=== PATIENT | female | born 1955 | race Caucasian/White ===

== ENCOUNTER → 2017-10-14 13:55 | Outpatient (CLI) | payer MEDICARE, OTHER, SELFPAY ==
[2017-10-14 15:38] LABS: BUP Internal Control LINE = VALID (VALID); Buprenorphine Drug Screen Negative (<10 ng/mL)
[2017-10-15 11:19] LABS: Amphetamine Urine VISTA NEGATIVE (<1000 ng/mL); Barbiturate Urine VISTA NEGATIVE (< 200 ng/mL); Benzodiazepine Urine VISTA NEGATIVE (< 200 ng/mL); Cocaine Urine VISTA NEGATIVE (< 300 ng/mL); Ecstacy Urine VISTA NEGATIVE (< 500 ng/mL); Methadone Urine VISTA NEGATIVE (< 300 ng/mL); PCP Urine VISTA NEGATIVE (< 25 ng/mL); THC Urine VISTA POSITIVE (< 50 ng/mL); Vista UDS pH Range 6
== END ==
PROVIDERS: Family Provider Family Medicine; PCP Family Medicine; Visit Provider Family Medicine
DX: F11.20 Opioid dependence, uncomplicated (principal)
CPT/HCPCS: 80307

== ENCOUNTER → 2018-06-04 16:04 | Outpatient (CLI) | payer MEDICARE, MEDICAID, SELFPAY ==
[2017-12-29 09:44] VITALS: BMI 39.0
== END ==
PROVIDERS: Family Provider Family Medicine; PCP Family Medicine; Referring Provider Otolaryngology; Visit Provider Otolaryngology
DX: J34.0 Abscess, furuncle and carbuncle of nose (principal)
CPT/HCPCS: 87070; 87077; 87186; 87205

== ENCOUNTER 2019-05-25 10:30 | Emergency (ER) | payer MEDICARE, OTHER, SELFPAY ==
[2019-05-17 09:52] VITALS: BMI 41.6
[2019-05-25 10:31] VITALS: BP 158/88; PULSE 82; RESP 18; TEMP 36.6; O2SAT 96; BMI 41.3
--- NOTE | 2019-05-25 11:03 | EKG12_ITS ---
Test Reason : SOB Blood Pressure : / mmHG Vent. Rate : 067 BPM Atrial Rate : 067 BPM P-R Int : 152 ms QRS Dur : 092 ms QT Int : 398 ms P-R-T Axes : 057 000 032 degrees QTc Int : 420 ms Normal sinus rhythm Moderate voltage criteria for LVH, may be normal variant Borderline ECG Confirmed by JOANNA GARCIA, ROGERS ([id number]), subeditor VANNESA DARBY ([id number]) on 05/30/2019 10:33:18 AM Referred By: [facility] Confirmed By:LILIYA MARSHALL MD
--- NOTE | 2019-05-25 11:03 | RAD_ITS ---
STUDY: X-RAY CHEST REASON FOR EXAM: Female, 63 years old. PT WITH EXTREME FATIGUE AND WEAKNESS SINCE THURSDAY, CHEST PAIN TECHNIQUE: PA and lateral views of the chest. COMPARISON: None. FINDINGS: EKG electrodes are seen. Hyperinflation. Minimal increased linear markings at the left lung base suggestive of linear atelectasis. There is no demonstrated pleural abnormality. Normal size heart. Normal mediastinum and damien. Normal visualized pulmonary arteries. Normal visualized aortic arch and descending thoracic aorta. There are diffuse degenerative changes of the visualized thoracic spine. Normal visualized ribs, clavicles, and shoulders. There is no demonstrated abnormality of the visualized soft tissue structures of the upper abdomen. RAD/Chest PA and Lateral IMPRESSION: Hyperinflation. Findings suggestive of mild linear atelectasis at the left lung base. Electronically Signed: Tommie Nixon, at 12:20 EST , Service support ,
--- NOTE | 2019-05-25 11:04 | ED.DCSUM_ITS ---
History of Present Illness Chief Complaint: Fatigue Informant: Patient Narrative: Patient states that on Thursday she had a vertigo-like sensation. She took Dramamine and it resolved. On Thursday she felt globally fatigued. She states that when she tries to walk any distance she begins to sweat in her posterior hairline. She does not sweat anywhere else. She notes a left chest discomfort which she describes as a deep hurt. She feels fatigued. She denies any nausea vomiting or diarrhea. No URI symptoms. She reports that since Thursday she has been sleeping more. She denies any fevers. She denies any generalized myalgias. Past Medical History - Allergies and Home Meds Allergies/Adverse Reactions: Allergies No Known Allergies Allergy (Verified 05/25/19 10:33) Primary Care Physician: John Adams DO [Primary Care Provider] - Smoking Status: Never smoker Review of Systems General: Reports: Malaise. Denies: Chills, Fever, Sweats Eyes: Denies: Visual changes - bilaterally, Diplopia ENT: Denies: Rhinorrhea, Sore throat Cardiovascular: Reports: Chest pain. Denies: Palpitations Respiratory: Denies: Dyspnea, Cough, Dyspnea on exertion Gastrointestinal: Denies: Abdominal pain, Nausea, Vomiting, Diarrhea, Melena, Hematochezia Genitourinary: Reports: Frequency. Denies: Dysuria, Hematuria Musculoskeletal: Denies: Back pain, Extremity Pain Skin: Denies: Rash, Wounds Neurological: Denies: Headache, Weakness, Numbness Physical Exam Vital Signs/Narrative: Vital Signs Temp Pulse Resp BP Pulse Ox 05/25/19 10:31 98 F 82 18 158/88 H 96 Inital Vital Signs reviewed: Yes General: Well nourished, Well developed, Obese, No Acute Distress Head: Normocephalic, Atraumatic Eyes: Perrl, EOMI ENT: Moist mucous membranes, No rhinorrhea Neck: Supple, Nontender Cardiovascular: Regular rate, Regular rhythm, No murmurs Respiratory: No distress, CTA bilaterally, Chest nontender Abdomen: Soft, Nontender, Nondistended, Normal bowel sounds Back: Nontender, Normal Inspection Extremities: Nontender, No edema Skin: Normal color, No rash Neurological: Alert, Oriented x3, Cranial nerves II-XII grossly intact, Normal Strength, Normal Sensation Psychological: Normal affect, Normal Mood Diagnostic/Tx/Re-eval - Medical Decision Making EKG showed a sinus rhythm rate of 67 without ectopy. Basic labs including TSH troponin were negative. Urinalysis normal. Chest x-ray normal. D-dimer was elevated. Therefore CTA of the chest was ordered and this was negative for acute. At this point I do not see an obvious cause for the patient malaise and fatigue. Our plan will be outpatient follow-up return if worsening. The patien t is comfortable with this plan. ED Disposition - Plan for ED Patient: Disposition: Home or Assisted Living Diagnosis: Fatigue, Chest pain Instructions: WEAKNESS, Unk Cause Referrals: John Adams DO [Primary Care Provider] - 2 Days
[2019-05-25 11:40] VITALS: PULSE 72; RESP 16; O2SAT 98
[2019-05-25] MEDS: 0.9% Normal Saline 1,000 ML 1000 ML IV (11:46)
[2019-05-25 12:04] LABS: Mucous, Urine 0 SEEN /hpf (<or=2+)
[2019-05-25 12:05] LABS: Color, Urine Yellow (Yellow); Glucose, Dipstick Normal (Normal); Ketone-Dipstick 5 mg/dl (Negative); Leukocyte Esterase-Dipstick Negative /ul (Negative); Nitrite-Dipstick Negative (Negative); Occult Blood-Urine 50 /ul (Negative); Protein-Dipstick Negative (Negative); Urine Bilirubin Dipstick Negative (Negative); Urine Clarity Sl. Cloudy (Clear); Urine Urobilinogen Normal (Normal)
[2019-05-25 12:09] LABS: Absolute Lymphocyte Count 2.38 X10^3/uL (0.83-4.51); Absolute Neutrophil Count 7.4 X10^3/uL (2.0-7.7); Basophil# 0.08 X10^3/uL; Basophil% 0.7 % (0-1); Eosinophil# 0.12 X10^3/uL; Eosinophils% 1.1 % (0-5); Hematocrit 43.7 % (37-47); Hemoglobin 13.7 g/dL (12.0-15.0); Lymphocyte # 2.38 X10^3/ul (4.0); Lymphocyte % 21.7 % (19-41); Mean Corp Hgb Conc 31.4 g/dL (32-36); Mean Corpuscular Hgb 28.7 pg (27.0-32.0); Mean Corpuscular Volume 91.6 fL (81-99); Monocyte# 0.84 X10^3/uL; Monocyte% 7.7 % (0-10); NRBC Flagged by Analyzer 0 % (0-5); Neutrophil # 7.39 X10^3/uL (2.7-7.7); Neutrophil % 67.3 % (47-70); Platelet Count 219 K/mm3 (150-450); RBC Distribution Width CV 14.2 % (11.6-14.6); RBC Distribution Width SD 47.9 fl (35.1-43.9); Red Blood Count 4.77 M/mm3 (4.2-5.4)
[2019-05-25 12:12] LABS: Bacteria RARE /hpf (None Seen); Red Blood Cells-Urine 0-5 SEEN /hpf (0-5); Squamous Epithelial Cells - UA 0-5 SEEN /hpf (5-10); White Blood Cells 0-5 SEEN /hpf (0-5)
[2019-05-25 12:21] LABS: ALB/GLOB Ratio 0.8 RATIO (0.9-2.4); AST(SGOT) 18 U/L (15-37); Alanine Aminotransfer ALT/SGPT 28 U/L (13-56); Albumin, Serum 3.6 g/dL (3.2-5.0); Alkaline Phosphatase 131 U/L (45-117); Anion Gap 5 (5-15); BUN 15 mg/dL (7-18); BUN/Creat Ratio 22.9 RATIO (10-20); Calcium,Total 9.3 mg/dL (8.5-10.1); Chloride 109 mmol/L (98-107); Creatinine, Serum 0.66 mg/dL (0.55-1.02); EST Glomerular Filtration Rate 96 mL/min (>60); Est Glom Filt Rate - Afr Amer 117 mL/min (>60); Estimated Creatinine Clearance 80.61 ml/min; Globulin 4.3 g/dL (2.2-4.2); Glucose 109 mg/dL (74-106); Potassium 3.4 mmol/L (3.5-5.1); Protein, Total 7.9 g/dL (6.4-8.2); Sodium Level 140 mmol/L (136-145); Thyroid Stim Hormone (TSH) 1.02 uIU/mL (0.358-3.74)
[2019-05-25 13:24] VITALS: PULSE 81; RESP 19; O2SAT 95; O2SAT 97
--- NOTE | 2019-05-25 13:25 | ED.RN ---
pt walked with pulse ox, pt reports becoming very tired on ambulation. spo2 started at 97% with a heart rate of 86. during the test walk pt's spo2 dropped to 95 percent with respirations in the mid to high 20's and heart rate of 128
[2019-05-25 14:11] LABS: D-Dimer Quantitative (DVT/PE) 1.43 FEU/ug/m (0.27-0.49)
--- NOTE | 2019-05-25 14:12 | CT_ITS ---
STUDY: CTA CHEST REASON FOR EXAM: Female, 63 years old. LEFT CHEST PAIN RADIATION DOSAGE (If Supplied By Facility): CTDIvol = ( 12.66 ) mGy, DLP = ( 521.55 ) mGycm TECHNIQUE: The examination was performed with the intravenous administration of 100 ML ISOVUE 370. Post-processing of the angiographic images was performed, with multiplanar reformation and 3D reconstruction. Individualized dose optimization techniques were used for this CT. COMPARISON: Comparison is made with prior chest radiograph done earlier in the day. FINDINGS: Elevation of the right hemidiaphragm. Normal enhancement of the main pulmonary artery and right and left pulmonary arteries. Normal enhancement of the bilateral peripheral pulmonary arteries. There is no demonstrated pulmonary embolism. Normal thoracic aorta and visualized great vessels. There is no demonstrated aortic dissection. There are calcifications of the coronary arteries. Normal mediastinum. Normal hilar regions. Normal visualized trachea and bronchi. The lungs are well expanded. Findings suggestive of focal scarring in the anterior aspect of the lingular segment of the left upper lobe as well as the anterior aspect of the Normal pleura. Normal chest wall structures. There are degenerative changes of thoracic spine. Normal visualized upper abdomen. CT/CTA Chest W/WO Contrast IMPRESSION: Normal CTA chest examination, without a demonstrated pulmonary embolism or arterial dissection. Electronically Signed: Tommie Nixon, at 14:53 EST , Service support ,
[2019-05-25] MEDS: 0.9% Normal Saline 1,000 ML 999 ML IV (14:47)
[2019-05-25 16:02] VITALS: PULSE 82; RESP 14; O2SAT 95
== END 2019-05-25 16:09 | disposition home or self-care (01) ==
PROVIDERS: Emergency Provider Emergency Medicine; PCP Family Medicine
DX: R07.9 Chest pain, unspecified (principal); R53.83 Other fatigue; E66.9 Obesity, unspecified
CPT/HCPCS: 71046; 71275; 80053; 81001; 84443; 84484; 85025; 85379; 87804; 93005; 96360; 96361; 99284; J7030; Q9967; A4216

== ENCOUNTER → 2019-05-30 | Outpatient (CLI) | payer MEDICARE, OTHER, SELFPAY ==
[2019-05-30 10:36] VITALS: BMI 41.9
--- NOTE | 2019-05-30 10:54 | RAD_ITS ---
STUDY: X-RAY - PELVIS AND LEFT HIP REASON FOR EXAM: Lower back and left hip pain, no specific injury. TECHNIQUE: 2 views of the pelvis and hip. COMPARISON: None. FINDINGS: Normal visualized soft tissue structures. Normal bilateral iliac wings, sacroiliac joints and visualized sacrum. Normal bilateral superior and inferior pubic rami. Normal pubic symphysis. Normal bilateral ischial tuberosities. Normal visualized femoral head. Normal acetabulum. There is mild joint space narrowing of the superomedial left hip joint. RAD/HIP, UNI W/ Pelvis 2-3 Views IMPRESSION: Mild arthrosis of the left hip. Electronically Signed: Juma Valdez MD at 13:58 EST Tel , Service support ,
--- NOTE | 2019-05-30 10:54 | RAD_ITS ---
HISTORY: Low back pain. Left hip pain. 5 views of the lumbar spine. Findings: Levoscoliosis of the thoracolumbar junction. Dextroscoliosis of the lumbar spine apex at the L3-L4 interspace. Degenerative disc disease at every level. Degenerative disc disease manifested by loss of disc height, endplate sclerosis, and enthesophytes. Anterior subluxation of L4 on L5 by 10 mm. Facet arthropathy at every level. Between flexion and extension lateral imaging, the anterior subluxation of L4 on L5 remain stable. No evoke listhesis perceived. RAD/L/S Spine w Bend Min 6 Vw IMPRESSION: Multilevel degenerative disc disease. Anterior subluxation of L4 on L5 by 10 mm. Due to loss of disc height, endplate sclerosis, and hyperostotic enthesophytes the degenerative disc disease is greatest at the T12-L1 level. at 0606 Reported and signed by: Tone Fair MD Electronically Signed: Tone Fair MD at 6:05 EST Tel , Service support ,
--- NOTE | 2019-05-30 11:45 | RAD_ITS ---
STUDY: X-RAY - RIGHT KNEE REASON FOR EXAM: Bilateral knee pain. TECHNIQUE: 4 view(s) of the knee. COMPARISON: None. FINDINGS: Normal visualized distal femur. Normal visualized proximal tibia and fibula. Normal proximal tibiofibular articulation. There are marginal osteophytes and severe joint space narrowing of the medial femorotibial compartment. Normal lateral femorotibial compartment. There are marginal osteophytes and severe joint space narrowing of the patellofemoral articulation. There is a possible posterior intra-articular body. RAD/Knee 4 or More Views IMPRESSION: Arthrosis of the medial femorotibial and patellofemoral compartments. Possible posterior intra-articular body. Electronically Signed: Juma Valdez MD at 14:10 EST Tel , Service support ,
--- NOTE | 2019-05-30 11:45 | RAD_ITS ---
STUDY: X-RAY - LEFT KNEE REASON FOR EXAM: Bilateral knee pain. TECHNIQUE: 4 view(s) of the knee. COMPARISON: None. FINDINGS: Normal visualized distal femur. Normal visualized proximal tibia and fibula. Normal proximal tibiofibular articulation. There is severe joint space narrowing of the medial femorotibial compartment. There are marginal osteophytes without joint space narrowing of the lateral femorotibial compartment. There are marginal osteophytes and severe joint space narrowing of the patellofemoral articulation. There is a joint effusion with an intra-articular body in the suprapatellar recess. RAD/Knee 4 or More Views IMPRESSION: Arthrosis of the medial femorotibial and patellofemoral compartments. Joint effusion. Intra-articular body. Electronically Signed: Juma Valdez MD at 14:30 EST Tel , Service support ,
== END | disposition home or self-care (01) ==
LOC: HPRAD 10:54
PROVIDERS: PCP Family Medicine; Referring Provider Physician Assistant; Visit Provider Physician Assistant
DX: M70.62 Trochanteric bursitis, left hip (principal); M25.561 Pain in right knee; M25.562 Pain in left knee; G89.29 Other chronic pain; M79.652 Pain in left thigh
CPT/HCPCS: 72114; 73502; 73564

== ENCOUNTER 2019-11-14 10:56 | Emergency (ER) | payer MEDICARE, OTHER, SELFPAY ==
[2019-10-04 12:45] VITALS: BMI 41.3
[2019-11-14 10:58] VITALS: BP 159/77; PULSE 101; RESP 18; TEMP 36.7; O2SAT 97; BMI 40.3
--- NOTE | 2019-11-14 11:08 | EKG12_ITS ---
Test Reason : CP Blood Pressure : / mmHG Vent. Rate : 082 BPM Atrial Rate : 082 BPM P-R Int : 154 ms QRS Dur : 086 ms QT Int : 370 ms P-R-T Axes : 055 -02 025 degrees QTc Int : 432 ms Sinus rhythm with occasional Premature ventricular complexes Voltage criteria for left ventricular hypertrophy Abnormal ECG Confirmed by SARANYA GARCIA, COLLETTE ([id number]), commercial production editor VANNESA DARBY ([id number]) on 11/16/2019 12:31:53 PM Referred By: ABELARDO Confirmed By:COLLETTE BEAVER MD
--- NOTE | 2019-11-14 11:09 | CT_ITS ---
STUDY: CT CERVICAL SPINE WITHOUT CONTRAST REASON FOR EXAM: Female, 64 years old. LT SHOULDER PAIN INTO ARM/NKI. Nausea and vomiting x 2 days .Hx of rheumatoid arthritis RADIATION DOSAGE (If Supplied By Facility): CTDIvol = ( 29.87 ) mGy, DLP = ( 602.24 ) mGycm TECHNIQUE: High resolution transaxial imaging was performed without contrast material. Sagittal and coronal images were reconstructed. Individualized dose optimization techniques were used for this CT. COMPARISON: None FINDINGS: Normal craniovertebral junction. There are degenerative changes of the anterior atlantoaxial articulation. Normal odontoid process. There is straightening of the normal cervical lordosis. Normal vertebral bodies and posterior osseous elements. C2-3: Facet joint osteoarthritis and hypertrophy worse on the right side. Uncovertebral arthrosis. Moderate degree of bilateral neural foraminal stenosis worse on the right side. C3-4: Minimal anterior listhesis of C3 on C4. Bilateral facet joint osteoarthritis worse on the right side. Minimal bilateral neural foraminal stenosis. C4-5: Moderate degree of disc space narrowing with spondylosis and disc degeneration. Uncovertebral arthrosis. Moderate degree of bilateral neural foraminal stenosis. C5-6: Marked degree of disc space narrowing and disc degeneration. Spondylosis. Uncovertebral arthrosis. Bilateral neural foraminal stenosis. C6-7: Marked degree of disc space narrowing. Spondylosis. Uncovertebral arthrosis. Bilateral neural foraminal stenosis. C7-T1: Normal endplates. Normal disc height and morphology. Normal central canal and intervertebral neuroforamina. Normal visualized soft tissue structures. CT/Spine Cervical without Contras IMPRESSION: Multilevel degenerative changes, as described above. Electronically Signed: Tommie Nixon, at 12:28 EDT , Service support ,
--- NOTE | 2019-11-14 11:13 | ED.DCSUM_ITS ---
History of Present Illness Chief Complaint: Upper Extremity Injury Informant: Patient Onset: Days Context: Gradual Onset Timing: Continuous Current Severity: Moderate Maximum Severity: Moderate Narrative: The patient is a 64-year-old female with history of rheumatoid arthritis and prior back surgery that presents to the emergency department with atraumatic right shoulder and chest pain. The patient states that she has been having pain in her right shoulder that radiates down her right arm. She states that she is had tingling. She denies any weakness. She cannot recall any trauma. She thought that she may have just slept wrong, so she waited 2 days. She states that today, she is still having the pain. She denies shortness of breath. She is had no fever or chills. She is otherwise been in her normal state of health. Prior similar symptoms: No Recent Illness/Hospitalization: No Past Medical History - Allergies and Home Meds Allergies/Adverse Reactions: Allergies No Known Allergies Allergy (Verified 11/14/19 10:57) Primary Care Physician: John Adams DO [Primary Care Provider] - Prior records reviewed: Yes Past Medical History: - - Hypertension, obesity, rheumatoid arthritis Surgical History: noncontributory Smoking Status: Never smoker Review of Systems General: Denies: Chills, Fever, Sweats Eyes: Denies: Visual changes - bilaterally, Diplopia ENT: Denies: Rhinorrhea, Sore throat Cardiovascular: Reports: Chest pain. Denies: Palpitations Respiratory: Denies: Dyspnea, Cough, Dyspnea on exertion Gastrointestinal: Denies: Abdominal pain, Nausea, Vomiting, Diarrhea, Melena, Hematochezia Genitourinary: Denies: Dysuria, Hematuria, Frequency Musculoskeletal: Reports: Myalgias, Arthralgias, Neck pain. Denies: Back pain, Extremity Pain Skin: Denies: Rash, Wounds Neurological: Denies: Headache, Weakness, Numbness Physical Exam Vital Signs/Narrative: Vital Signs Temp Pulse Resp BP Pulse Ox 11/14/19 10:58 98.0 F 101 H 18 159/77 H 97 Inital Vital Signs reviewed: Yes General: Well nourished, Well developed, No Acute Distress Head: Normocephalic, Atraumatic Eyes: Perrl, EOMI ENT: Moist mucous membranes, No rhinorrhea Neck: Supple, Nontender Cardiovascular: Regular rate, Regular rhythm, No murmurs Respiratory: No distress, CTA bilaterally, Chest nontender Abdomen: Soft, Nontender, Nondistended, Normal bowel sounds Back: Nontender, Normal Inspection Extremities: Nontender, No edema Skin: Normal color, No rash Neurological: Alert, Oriented x3, Cranial nerves II-XII grossly intact, Normal Strength, Normal Sensation Psychological: Normal affect, Normal Mood Diagnostic/Tx/Re-eval Clinical Impression(s) from Imaging Studies Cervical Spine CT 11/14/19 11:09 IMPRESSION: Multilevel degenerative changes, as described above. Electronically Signed: Tommie Tiffani, at 12:28 EDT , Service support , Chest X-Ray 11/14/19 11:50 IMPRESSION: Hyperinflation. The lungs are clear Electronically Signed: Tommie Tiffani, at 12:31 EDT , Service support , Abnormal Lab Results 11/14/19 11/14/19 11:35 11:35 WBC 12.1 H RBC 4.22 Hgb 12.6 Hct 40.7 MCV 96.4 MCH 29.9 MCHC 31.0 L RDW Std Deviation 49.4 H RDW Coeff of [facility] 14.0 Plt Count 199 MPV 13.8 H Immature Gran % (Auto) 0.600 Neut % (Auto) 75.9 H Lymph % (Auto) 15.6 L [place] % (Auto) 6.2 Eos % (Auto) 1.2 Baso % (Auto) 0.5 Absolute Neuts (auto) 9.2 H Absolute Lymphs (auto) 1.88 Nucleated RBC % 0 Sodium 144 Potassium 3.5 Chloride 112 H Carbon Dioxide 26.0 Anion Gap 6 BUN 16 Creatinine 0.54 L Estim Creat Clear Calc 97.23 Est GFR (MDRD) Af Amer 144 Est GFR (MDRD) Non-Af 119 BUN/Creatinine Ratio 29.4 H Glucose 107 H Calcium 9.1 Troponin I < 0.015 - Medical Decision Making The patient symptoms do seem more consistent with a cervical radiculopathy. She has no weakness. She has normal reflexes. I did obtain CT cervical spine, chest x-ray, and modified cardiac work-up given the posterior pain. CT demonstrates rather significant chronic change without acute fracture or displacement. Cardiac work-up was unremarkable. At this point, I do feel the patient would benefit from a short Solu-Medrol burst. She is comfortable with this plan of care. She was counseled on concerning symptoms and reasons to return. She will be discharged home. Impression 1. Cervical radiculopathy ED Disposition - Plan for ED Patient: Disposition: Home or Assisted Living Instructions: ED CERVICAL RADICULOPATHY Prescriptions: MethylPREDNISolone DosePak [Medrol DosePak] 4 mg PO UD #1 box Prescription Printed Referrals: John Adams DO [Primary Care Provider] -
--- NOTE | 2019-11-14 11:50 | RAD_ITS ---
STUDY: X-RAY CHEST REASON FOR EXAM: Female, 64 years old. Right sided chest pain TECHNIQUE: PA and lateral views of the chest. COMPARISON: Comparison is made with prior study dated 05-25-19. FINDINGS: EKG electrodes are seen. Hyperinflation. The lungs are clear. There is no demonstrated pleural abnormality. Normal size heart. Normal mediastinum and damien. Normal visualized pulmonary arteries. Normal visualized aortic arch and descending thoracic aorta. There are diffuse degenerative changes of the visualized thoracic spine. Normal visualized ribs, clavicles, and shoulders. There is no demonstrated abnormality of the visualized soft tissue structures of the upper abdomen. RAD/Chest PA and Lateral IMPRESSION: Hyperinflation. The lungs are clear Electronically Signed: Tommie Nixon, at 12:31 EDT , Service support ,
[2019-11-14 11:53] LABS: Absolute Lymphocyte Count 1.88 X10^3/uL (0.83-4.51); Absolute Neutrophil Count 9.2 X10^3/uL (2.0-7.7); Basophil# 0.06 X10^3/uL; Basophil% 0.5 % (0-1); Eosinophil# 0.14 X10^3/uL; Eosinophils% 1.2 % (0-5); Hematocrit 40.7 % (37-47); Hemoglobin 12.6 g/dL (12.0-15.0); Lymphocyte # 1.88 X10^3/ul (4.0); Lymphocyte % 15.6 % (19-41); Mean Corpuscular Hgb 29.9 pg (27.0-32.0); Mean Corpuscular Volume 96.4 fL (81-99); Mean Platelet Vol. 13.8 fl (6.2-12.0); Monocyte# 0.75 X10^3/uL; Monocyte% 6.2 % (0-10); NRBC Flagged by Analyzer 0 % (0-5); Neutrophil # 9.17 X10^3/uL (2.7-7.7); Neutrophil % 75.9 % (47-70); Platelet Count 199 K/mm3 (150-450); RBC Distribution Width SD 49.4 fl (35.1-43.9); Red Blood Count 4.22 M/mm3 (4.2-5.4); White Blood Count 12.1 K/mm3 (4.4-11.0)
[2019-11-14 12:15] LABS: Anion Gap 6 (5-15); BUN 16 mg/dL (7-18); BUN/Creat Ratio 29.4 RATIO (10-20); Calcium,Total 9.1 mg/dL (8.5-10.1); Chloride 112 mmol/L (98-107); Creatinine, Serum 0.54 mg/dL (0.55-1.02); EST Glomerular Filtration Rate 119 mL/min (>60); Est Glom Filt Rate - Afr Amer 144 mL/min (>60); Estimated Creatinine Clearance 97.23 ml/min; Glucose 107 mg/dL (74-106); Potassium 3.5 mmol/L (3.5-5.1); Sodium Level 144 mmol/L (136-145)
[2019-11-14 12:48] VITALS: BP 149/75; PULSE 87; RESP 18
== END 2019-11-14 12:50 | disposition home or self-care (01) ==
LOC: ED 12:08
PROVIDERS: Emergency Provider Emergency Medicine; PCP Family Medicine
DX: M54.12 Radiculopathy, cervical region (principal); M06.9 Rheumatoid arthritis, unspecified; E66.9 Obesity, unspecified; I10 Essential (primary) hypertension
CPT/HCPCS: 71046; 72125; 80048; 84484; 85025; 93005; 96360; 99285; J7030

== ENCOUNTER → 2022-03-26 | Outpatient (CLI) | payer MEDICARE, OTHER, SELFPAY ==
--- NOTE | 2022-03-26 09:47 | RAD_ITS ---
STUDY: X-RAY CHEST REASON FOR EXAM: Female, 66 years old. Shortness of breath. TECHNIQUE: Frontal and lateral views of the chest. COMPARISON: November 14, 2019. FINDINGS: The lungs are clear and expanded. There is no demonstrated pleural abnormality. Normal size heart. Normal mediastinum and damien. Normal visualized pulmonary arteries. Normal visualized aortic arch and descending thoracic aorta. Stable diffuse moderate thoracic spondylosis. Normal visualized ribs, clavicles, and shoulders. There is no demonstrated abnormality of the visualized soft tissue structures of the upper abdomen. RAD/Chest PA and Lateral IMPRESSION: Stable spondylosis. No active or acute cardiopulmonary disease. Electronically Signed: Lc Mccabe, at 11:21 EST ,
[2022-03-26 12:10] LABS: Absolute Lymphocyte Count 2.09 X10^3/uL (0.83-4.51); Absolute Neutrophil Count 7.6 X10^3/uL (2.0-7.7); Basophil# 0.07 X10^3/uL; Basophil% 0.6 % (0-1); Eosinophil# 0.25 X10^3/uL; Eosinophils% 2.3 % (0-5); Hematocrit 45.4 % (37-47); Hemoglobin 14.1 g/dL (12.0-15.0); Lymphocyte # 2.09 X10^3/ul (0.83-4.51); Lymphocyte % 19.3 % (19-41); Mean Corp Hgb Conc 31.1 g/dL (32-36); Mean Corpuscular Hgb 29.4 pg (27.0-32.0); Mean Corpuscular Volume 94.6 fL (81-99); Mean Platelet Vol. 15.5 fl (6.2-12.0); Monocyte# 0.77 X10^3/uL; Monocyte% 7.1 % (0-10); NRBC Flagged by Analyzer 0 % (0-5); Neutrophil # 7.59 X10^3/uL (2.7-7.7); Neutrophil % 70.1 % (47-70); Platelet Count 169 K/mm3 (150-450); RBC Distribution Width SD 52.6 fl (35.1-43.9); White Blood Count 10.8 K/mm3 (4.4-11.0)
[2022-03-26 12:36] LABS: BNP,B-Type NATRIURETIC PEPTIDE 7.6 pg/mL (0-100)
[2022-03-26 12:45] LABS: Anion Gap 4 (5-15); BUN 9 mg/dL (7-18); BUN/Creat Ratio 14.9 RATIO (10-20); Calcium,Total 9.7 mg/dL (8.5-10.1); Chloride 111 mmol/L (98-107); EST Glomerular Filtration Rate 105 mL/min (>60); Est Glom Filt Rate - Afr Amer 127 mL/min (>60); Glucose 115 mg/dL (74-106); Potassium 3.5 mmol/L (3.5-5.1); Sodium Level 141 mmol/L (136-145)
== END | disposition home or self-care (01) ==
PROVIDERS: PCP Family Medicine; Referring Provider Family Medicine; Visit Provider Family Medicine
DX: R06.02 Shortness of breath (principal); M06.9 Rheumatoid arthritis, unspecified
CPT/HCPCS: 36415; 71046; 80048; 83880; 85025

== ENCOUNTER → 2022-03-31 | Outpatient (CLI) | payer MEDICARE, OTHER, SELFPAY | END | disposition home or self-care (01) | LOC: LABSPEC 10:21 | PROVIDERS: PCP Family Medicine; Visit Provider Physician Assistant | DX: N39.0 Urinary tract infection, site not specified (principal) | CPT/HCPCS: 87077; 87086; 87088; 87186 ==

== ENCOUNTER → 2022-04-10 | Outpatient (CLI) | payer MEDICARE, OTHER, SELFPAY ==
[2022-04-10 08:54] LABS: Bacteria 0 SEEN /hpf (None Seen); Mucous, Urine 0 SEEN /hpf (<or=2+); White Blood Cells 0 SEEN /hpf (0-5)
[2022-04-10 12:13] LABS: Color, Urine Yellow (Yellow); Glucose, Dipstick Normal (Normal); Ketone-Dipstick Negative (Negative); Leukocyte Esterase-Dipstick Negative /ul (Negative); Nitrite-Dipstick Negative (Negative); Occult Blood-Urine 10 /ul (Negative); Protein-Dipstick Negative (Negative); Specific Gravity, Urine 1.015 (1.002-1.030); Urine Bilirubin Dipstick Negative (Negative); Urine Clarity Sl. Cloudy (Clear); Urine Urobilinogen Normal (Normal)
[2022-04-10 12:21] LABS: Red Blood Cells-Urine 0-5 SEEN /hpf (0-5); Squamous Epithelial Cells - UA 0-5 SEEN /hpf (5-10)
== END | disposition home or self-care (01) ==
LOC: LABSPEC 08:44
PROVIDERS: PCP Family Medicine; Referring Provider Family Medicine; Visit Provider Family Medicine
DX: M54.42 Lumbago with sciatica, left side (principal); G89.29 Other chronic pain
CPT/HCPCS: 81001

== ENCOUNTER 2022-05-21 12:29 | Emergency (ER) | payer MEDICARE, OTHER, SELFPAY ==
[2022-05-21 12:30] VITALS: BP 154/85; PULSE 129; RESP 18; TEMP 36.2; O2SAT 94; BMI 38.2
--- NOTE | 2022-05-21 13:24 | CT_ITS ---
STUDY: CTA CHEST REASON FOR EXAM: Female, 66 years old. pe. COVID 3 MONTHS AGO, CONTINUED SYMPTOMS RADIATION DOSAGE (If Supplied By Facility): CTDIvol = ( 15.38 ) mGy, DLP = ( 669.85 ) mGycm TECHNIQUE: The examination was performed with the intravenous administration of IV 100mL Isovue-370. Post-processing of the angiographic images was performed, with multiplanar reformation and 3D reconstruction. Individualized dose optimization techniques were used for this CT. COMPARISON: Comparison is made with prior study dated 05/25/2019. FINDINGS: Normal enhancement of the main pulmonary artery and right and left pulmonary arteries. Normal enhancement of the bilateral peripheral pulmonary arteries. There is no demonstrated pulmonary embolism. Normal thoracic aorta and visualized great vessels. There is no demonstrated aortic dissection. Normal heart and pericardium. Normal mediastinum. Normal hilar regions. Normal visualized trachea and bronchi. The lungs are well expanded. Normal pulmonary parenchyma. Normal pleura. Normal chest wall structures. There are degenerative changes of thoracic spine. Findings suggestive of hyperplasia of the adrenal glands. Fatty infiltration of the liver. CT/CTA Chest W/WO Contrast IMPRESSION: No evidence of pulmonary embolism. No acute abnormality is seen. Electronically Signed: Tommie Nixon MD at 14:49 EST ,
--- NOTE | 2022-05-21 13:24 | EKG12_ITS ---
Test Reason : SOB Blood Pressure : / mmHG Vent. Rate : 095 BPM Atrial Rate : 095 BPM P-R Int : 160 ms QRS Dur : 102 ms QT Int : 350 ms P-R-T Axes : 054 019 007 degrees QTc Int : 439 ms Normal sinus rhythm Possible Left atrial enlargement RSR' or QR pattern in V1 suggests right ventricular conduction delay Nonspecific ST abnormality Abnormal ECG Confirmed by JOANNA GARCIA, ROGERS ([id number]), sound editor JENNIFER JAMES ([id number]) on 05/23/2022 8:50:55 AM Referred By: Confirmed By:LILIYA MARSHALL MD
--- NOTE | 2022-05-21 13:26 | EX.ED.DYSGE1 ---
HPI History of Present Illness Chief Complaint: Shortness of Breath Informant: patient and family Narrative Narrative: Patient presents with multiple complaints. These of all been going on for about 3 months. She initially had COVID. Ever since COVID she has never stopped coughing. She feels a little short of breath off and on all the time. She has lost about 40 pounds. Her appetite is overall down. She also has other chronic issues such as back pain for which she is got injections. She occasionally has 1 spot over on the right lateral rib where it hurts. She has had injections for this. But she does not have anterior intermittent chest pain. She denies fevers or chills. She has seen her doctor. She has been on antibiotics and steroids without help. She is states that breathing treatments do not work well for her. But she is also a non-smoker with no history of asthma or COPD. Nothing that has been tested is found the source of her symptoms. Nothing that has been tried has helped. [facility] Medical History Chronic back pain Rheumatoid arthritis Uncomplicated opioid dependence Home Medications aspirin 81 mg chewable tablet 81 mg PO DAILY 05/30/19 [History Last Taken Unknown] Kenalog 40 mg/mL suspension for injection (triamcinolone acetonide) 80 mg (2 mL) intra-articular ONCE #2 mL 07/26/19 [Clinic Last Taken Unknown] Kenalog 40 mg/mL suspension for injection (triamcinolone acetonide) 80 mg (2 mL) intra-articular ONCE #2 mL 10/04/19 [Clinic Last Taken Unknown] Kenalog 40 mg/mL suspension for injection (triamcinolone acetonide) 80 mg (2 mL) intra-articular ONCE #2 mL 02/23/20 [Clinic Last Taken Unknown] Kenalog 40 mg/mL suspension for injection (triamcinolone acetonide) 80 mg (2 mL) intra-articular ONCE #2 mL 05/15/20 [Clinic Last Taken Unknown] fexofenadine 180 mg tablet (Fozia Allergy) 180 mg PO DAILY PRN 05/15/20 [History Last Taken Unknown] gabapentin 400 mg capsule 400 mg PO BID back pain #180 caps 02/24/22 [Rx Last Taken Unknown] ibuprofen 800 mg tablet 800 mg PO TID PRN pain #270 tabs 02/24/22 [Rx Last Taken Unknown] guaifenesin 400 mg tablet 400 mg PO TID PRN congestion, cough #30 tabs 03/11/22 [Rx Last Taken Unknown] cyclobenzaprine 10 mg tablet 10 mg PO TID #30 tabs 04/10/22 [Rx Last Taken Unknown] handicap placard #1 ea 05/08/22 [Rx Last Taken Unknown] benzonatate 200 mg capsule 200 mg PO BID-TID PRN cough #30 caps 05/09/22 [Rx Last Taken Unknown] codeine 10 mg-guaifenesin 100 mg/5 mL oral liquid 5 ml PO Q6H PRN cough #120 mL 05/09/22 [Rx Last Taken Unknown] potassium chloride 20 mEq tablet,extended release (K-Tab) 20 meq PO DAILY #10 tabs 05/21/22 [Rx Last Taken Unknown] Allergy/AdvReac Type Severity Reaction Status Date / Time No Known Allergies Allergy Verified 05/08/22 09:24 Family History Mother Diabetes Father Heart disease Cancer Surgical History History of back surgery History of bilateral knee replacement History of carpal tunnel release History of tonsillectomy History of tubal ligation Social History Smoking Status: Never smoker alcohol intake: never substance use type: does not use what type of physical activity do you participate in: other details: stretches frequency: daily ROS ROS ED Constitutional Constitutional ED: Denies fever(s) or subjective Eyes Eyes: Denies change in vision ENT ENT ED: Denies rhinorrhea or sore throat Cardiovascular Cardiovascular: Reports other Details: Right lower lateral focal rib pain. Not generalized chest pain ; Denies palpitations or racing heartbeat Respiratory/Chest Respiratory/Chest: Reports cough and dyspnea; Denies sputum Gastrointestinal Gastrointestinal: Reports other Details: Patient had nausea and vomiting with COVID but not since. But she does have a poor appetite. ; Denies abdominal pain, nausea or vomiting Genitourinary Genitourinary ED: Denies hematuria Musculoskeletal Musculoskeletal: Reports back pain Integumentary Denies rash Neurologic Neurologic: Denies headache(s) or paresthesias Endocrine Endocrinology: Denies polydipsia or polyuria Hematologic/Lymphatic Hematologic/Lymphatic: Denies easy bleeding or easy bruising Allergic/Immunologic Allergic/Immunologic ED: Denies urticaria EXAM Physical Exam Narrative Exam Narrative: Patient is awake alert. No acute distress. She is sitting comfortably in bed. HEENT: No sinus tenderness. Mucous membranes are moist. No pharyngeal erythema or exudate. Voice is normal. Swallowing is normal. Eyes show no jaundice Neck is supple without JVD. No stridor. Lungs: When I had her first take a deep breath it sounded like a small wheeze but this seemed to clear. I hear no rhonchi or rales. No pain with a deep breath but she does have pain palpating an area in the right lower rib cage at about the mid or posterior axillary line. No skin lesions are seen there. Heart: Regular with a rate about 105. No murmur gallop or rub. Peripheral pulses are normal. Abdomen: Obese but overall benign. I do not get any tenderness. No mass that I can appreciate. Bowel sounds are normal. no suprapubic or CVA tenderness Extremities: There is no edema cord asymmetry or tenderness along the deep venous system. Pulses are normal. Color is normal. Neuro: Patient is awake alert no confusion. No focal deficit. Const Vital Signs: 05/21/22 12:30 05/21/22 13:42 05/21/22 13:30 Temperature 97.1 F L Temperature Source Temporal Pulse Rate 129 H 109 H 98 Respiratory Rate 18 22 H 16 Respiratory Pattern Normal Blood Pressure 154/85 H Blood Pressure Mean 108 Pulse Ox 94 92 Oxygen Delivery Method Room Air Room Air MDM MDM MDM Narrative Medical decision making narrative: CTA of the chest showed no sign of pulmonary embolus dissection or other acute process. Of the CTA was done because the patient's been having ongoing symptoms and a D-dimer can turn negative despite an ongoing PE. She had a family member with a PE and she had COVID so I did feel she was at risk. Her EKG showed some changes from 1 2 and half years ago. For this reason we had a troponin even though her symptoms do not match typical angina. Troponin was negative at 12. Patient's white count was high at 19.1. But she did recently finish steroids and has had Kenalog injections for her back pains. This is likely the source of this leukocytosis. Electrolytes show mildly low potassium at 2.9. This will be replaced orally. Liver function test look normal. Patient's been having multiple symptoms ever since she had COVID. 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 We considered antibiotics with her dyspnea and white count but she does not have an infiltrate. I think her white count is from steroids. I do not think antibiotics are needed. She will follow-up with her primary physician. Lab Data Attestation: I reviewed the patient's lab results. Labs: Laboratory Results - last 24 hr 05/21/22 05/21/22 05/21/22 13:30 13:30 13:30 WBC 19.1 H RBC 4.30 Hgb 12.4 Hct 40.2 MCV 93.5 MCH 28.8 MCHC 30.8 L RDW Std Deviation 56.2 H RDW Coeff of [facility] 16.4 H Plt Count 175 MPV 13.6 H Immature Gran % (Auto) 0.500 Neut % (Auto) 82.7 H Lymph % (Auto) 10.0 L [place] % (Auto) 6.4 Eos % (Auto) 0.0 Baso % (Auto) 0.4 Absolute Neuts (auto) 15.8 H Absolute Lymphs (auto) 1.91 Nucleated RBC % 0 Sodium 139 Potassium 2.9 L Chloride 105 Carbon Dioxide 27.0 Anion Gap 7 BUN 9 Creatinine 0.67 Estim Creat Clear Calc 49.12 Est GFR (MDRD) Af Amer 114 Est GFR (MDRD) Non-Af 94 BUN/Creatinine Ratio 13.5 Glucose 122 H Calcium 8.9 Total Bilirubin 1.00 AST 9 L ALT 15 Alkaline Phosphatase 113 Troponin I High Sens 12 Total Protein 6.9 Albumin 2.7 L Globulin 4.2 Albumin/Globulin Ratio 0.6 L Radiography Diagnostic Testing: Clinical Impression(s) from Imaging Studies Chest CTA 05/21/22 13:24 IMPRESSION: No evidence of pulmonary embolism. No acute abnormality is seen. Electronically Signed: Tommie Nixon MD at 14:49 EST , EKG Initial EKG: Comments: My independent TURP Tatian of EKG done for dyspnea shows a normal sinus rhythm with overall rate of 95. No ventricular ectopy. There does appear to be right bundle branch pattern developing. Nonspecific ST and T wave changes that may be related to the bundle branch. This is a slight change from 14 November 2019. This EKG shows a normal AL interval, QRS duration and QTc. Discharge Plan Triage Chief Complaint: Shortness of Breath ED Provider: Nils Webb Dx/Rx/DC Orders Clinical Impression: Post-COVID chronic cough, Hypokalemia, Leukocytosis Instructions: ED Cough Chronic Uncertain Cause Adult Prescriptions: New potassium chloride [K-Tab] 20 mEq tablet extended release 20 meq PO DAILY Qty: 10 0RF No Action aspirin 81 mg tablet,chewable 81 mg PO DAILY fexofenadine [Fozia Allergy] 180 mg tablet 180 mg PO DAILY PRN triamcinolone acetonide [Kenalog] 40 mg/mL suspension 80 mg INTRAARTIC ONCE Qty: 2 0RF triamcinolone acetonide [Kenalog] 40 mg/mL suspension 80 mg INTRAARTIC ONCE Qty: 2 0RF triamcinolone acetonide [Kenalog] 40 mg/mL suspension 80 mg INTRAARTIC ONCE Qty: 2 0RF triamcinolone acetonide [Kenalog] 40 mg/mL suspension 80 mg INTRAARTIC ONCE Qty: 2 0RF gabapentin 400 mg capsule 400 mg PO BID Qty: 180 1RF ibuprofen 800 mg tablet 800 mg PO TID PRN (Reason: pain) Qty: 270 3RF cyclobenzaprine 10 mg tablet 10 mg PO TID Qty: 30 1RF (DME) handicap placard See Rx Instructions .Route .MEDSUPPLY Qty: 1 0RF Rx Instructions: length of time=5years Dx=Debility benzonatate 200 mg capsule 200 mg PO BID-TID PRN (Reason: cough) Qty: 30 0RF codeine-guaifenesin 10-100 mg/5 mL liquid 5 ml PO Q6H PRN (Reason: cough) Qty: 120 0RF guaifenesin 400 mg tablet 400 mg PO TID PRN (Reason: congestion, cough) Qty: 30 0RF Primary Care Provider: John Adams Referrals: John Adams, DO [Primary Care Provider] - 1 Week Disposition Disposition: Home, Self Care
[2022-05-21] MEDS: Ipratropium/Albuterol Sulfate 3 ML AMPUL.NEB INHALATION (13:29)
[2022-05-21 13:30] VITALS: PULSE 98; RESP 16
[2022-05-21 13:42] VITALS: PULSE 109; RESP 22; O2SAT 92
[2022-05-21 13:48] LABS: Absolute Lymphocyte Count 1.91 X10^3/uL (0.83-4.51); Absolute Neutrophil Count 15.8 X10^3/uL (2.0-7.7); Basophil# 0.07 X10^3/uL; Basophil% 0.4 % (0-1); Hematocrit 40.2 % (37-47); Hemoglobin 12.4 g/dL (12.0-15.0); Lymphocyte # 1.91 X10^3/ul (0.83-4.51); Mean Corp Hgb Conc 30.8 g/dL (32-36); Mean Corpuscular Hgb 28.8 pg (27.0-32.0); Mean Corpuscular Volume 93.5 fL (81-99); Mean Platelet Vol. 13.6 fl (6.2-12.0); Monocyte# 1.23 X10^3/uL; Monocyte% 6.4 % (0-10); NRBC Flagged by Analyzer 0 % (0-5); Neutrophil # 15.76 X10^3/uL (2.7-7.7); Neutrophil % 82.7 % (47-70); Platelet Count 175 K/mm3 (150-450); RBC Distribution Width CV 16.4 % (11.6-14.6); RBC Distribution Width SD 56.2 fl (35.1-43.9); White Blood Count 19.1 K/mm3 (4.4-11.0)
[2022-05-21 14:06] LABS: ALB/GLOB Ratio 0.6 RATIO (0.9-2.4); AST(SGOT) 9 U/L (15-37); Alanine Aminotransfer ALT/SGPT 15 U/L (13-56); Albumin, Serum 2.7 g/dL (3.2-5.0); Alkaline Phosphatase 113 U/L (45-117); Anion Gap 7 (5-15); BUN 9 mg/dL (7-18); BUN/Creat Ratio 13.5 RATIO (10-20); Calcium,Total 8.9 mg/dL (8.5-10.1); Chloride 105 mmol/L (98-107); Creatinine, Serum 0.67 mg/dL (0.55-1.02); EST Glomerular Filtration Rate 94 mL/min (>60); Est Glom Filt Rate - Afr Amer 114 mL/min (>60); Estimated Creatinine Clearance 49.12 ml/min; Globulin 4.2 g/dL (2.2-4.2); Glucose 122 mg/dL (74-106); Potassium 2.9 mmol/L (3.5-5.1); Protein, Total 6.9 g/dL (6.4-8.2); Sodium Level 139 mmol/L (136-145)
[2022-05-21 14:36] LABS: Troponin-I HS 12 pg/mL (3.0-54.0)
[2022-05-21] MEDS: Potassium Chloride Oral Tablet 20 MEQ PO (15:18)
[2022-05-21 15:21] VITALS: PULSE 100; RESP 16; O2SAT 99
== END 2022-05-21 15:21 | disposition home or self-care (01) ==
PROVIDERS: Emergency Provider Emergency Medicine; PCP Family Medicine; Visit Provider Emergency Medicine
DX: R05.3 Chronic cough (principal); E87.6 Hypokalemia; R07.81 Pleurodynia; D72.829 Elevated white blood cell count, unspecified; U09.9 Post COVID-19 condition, unspecified; R06.02 Shortness of breath
CPT/HCPCS: 71275; 80053; 84484; 85025; 93005; 94640; 99284; Q9967; A4216

== ENCOUNTER 2022-06-02 08:19 | Emergency (ER) | payer MEDICARE, OTHER, SELFPAY ==
[2022-06-02] VITALS (8 sets, daily range): BP systolic 115–137; BP diastolic 69–94; PULSE 89–136; RESP 12–18; TEMP 36.4–36.8; O2SAT 94–96; BMI 37.9
--- NOTE | 2022-06-02 08:41 | EKG12_ITS ---
Test Reason : TACHY Blood Pressure : / mmHG Vent. Rate : 131 BPM Atrial Rate : 131 BPM P-R Int : 144 ms QRS Dur : 100 ms QT Int : 310 ms P-R-T Axes : 046 000 013 degrees QTc Int : 457 ms Sinus tachycardia with Premature atrial complexes with Aberrant conduction Right atrial enlargement Incomplete right bundle branch block Moderate voltage criteria for LVH, may be normal variant ( R in aVL , Lukasz product ) Nonspecific ST abnormality Abnormal ECG Confirmed by SARANYA GARCIA, COLLETTE ([id number]), continuity editor JENNIFER JAMES ([id number]) on 06/03/2022 10:07:46 AM Referred By: ABBEY Confirmed By:COLLETTE BEAVER MD
--- NOTE | 2022-06-02 08:47 | ED.VIS.DYS ---
HPI History of Present Illness Chief Complaint: Cough Informant: patient Narrative Narrative: Patient states she has had worsening dyspnea on exertion and cough for the past month. Has seen PCP, basically taking antitussives and breathing treatments/inhalers at home. No steroids or antibiotics. No known history of COPD, no history of smoking. No other known chronic lung disease. She denies any fevers or chills. She denies any specific chest discomfort but states she feels achy and uncomfortable everywhere like a bus hit me. She has had some gagging with vomiting, as well as some nausea. She denies any other GI symptoms or abdominal pain. She states she has been on Tessalon Perles and some inhalers, but no steroids or antibiotics for this in the past month. [facility] Medical History Chronic back pain Rheumatoid arthritis Uncomplicated opioid dependence Home Medications aspirin 81 mg chewable tablet 81 mg PO DAILY HEALTH MAINTENANCE 05/30/19 [History Last Taken 06/01/22] fexofenadine 180 mg tablet (Fozia Allergy) 180 mg PO DAILY PRN SEASONAL ALLERGIES 05/15/20 [History Last Taken Unknown] gabapentin 400 mg capsule 400 mg PO BID back pain #180 caps 02/24/22 [Rx Last Taken 1 Month Ago ~05/02/22] ibuprofen 800 mg tablet 800 mg PO TID PRN pain #270 tabs 02/24/22 [Rx Last Taken 06/01/22] handicap placard #1 ea 05/08/22 [Rx Last Taken Unknown] Vicks DayQuil 30 ml PO/SL Q4H PRN Cold Symptoms 06/02/22 [History Last Taken 05/31/22] levofloxacin 750 mg tablet 750 mg PO DAILY #2 tabs 06/02/22 [Rx Last Taken Unknown] potassium chloride 20 mEq tablet,extended release (K-Tab) 20 meq PO BID #10 tabs 06/02/22 [Rx Last Taken Unknown] promethazine 25 mg tablet 25 mg PO Q6H PRN PRN Nausea #12 TABLETS 06/02/22 [Rx Last Taken Unknown] tramadol 50 mg tablet 50 mg PO Q6H PRN pain 3 days #12 tabs 06/02/22 [Rx Last Taken Unknown] Allergy/AdvReac Type Severity Reaction Status Date / Time No Known Allergies Allergy Verified 06/02/22 08:20 Family History Mother Diabetes Father Heart disease Cancer Surgical History History of back surgery History of bilateral knee replacement History of carpal tunnel release History of tonsillectomy History of tubal ligation Social History Smoking Status: Never smoker alcohol intake: never substance use type: does not use what type of physical activity do you participate in: other details: stretches frequency: daily ROS ROS ED Constitutional Constitutional ED: Reports malaise; Denies chills or fever(s) Eyes Eyes: Denies change in vision or diplopia ENT ENT ED: Denies rhinorrhea or sore throat Cardiovascular Cardiovascular: Denies chest pain or palpitations Respiratory/Chest Respiratory/Chest: Reports cough, dyspnea and dyspnea on exertion Gastrointestinal Gastrointestinal: Reports nausea and vomiting; Denies abdominal pain or diarrhea Genitourinary Genitourinary ED: Denies dysuria or hematuria Musculoskeletal Musculoskeletal: Reports myalgias; Denies back pain or neck pain Integumentary Denies abscess or rash Neurologic Neurologic: Denies headache(s), paresthesias or weakness Psychiatric Psychiatric: Denies anxiety or suicidal thoughts EXAM Physical Exam Const Vital Signs: 06/02/22 08:21 06/02/22 09:00 06/02/22 09:14 Temperature 97.9 F Temperature Source Temporal Pulse Rate 136 H 106 H Respiratory Rate 17 18 Respiratory Effort Normal Non-Labored Respiratory Depth Normal Respiratory Pattern Normal Blood Pressure 122/79 H Blood Pressure Mean 93 Pulse Ox 96 Oxygen Delivery Method Room Air 06/02/22 09:50 06/02/22 13:39 06/02/22 15:00 Temperature 97.5 F L 97.9 F Temperature Source Oral Temporal Pulse Rate 89 118 H 99 Respiratory Rate 16 13 Respiratory Effort Respiratory Depth Respiratory Pattern Blood Pressure 134/69 H 135/86 H 137/81 H Blood Pressure Mean 90 102 99 Pulse Ox 95 95 Oxygen Delivery Method Room Air Room Air 06/02/22 16:00 Temperature 98.3 F Temperature Source Temporal Pulse Rate 112 H Respiratory Rate 12 Respiratory Effort Respiratory Depth Respiratory Pattern Blood Pressure 115/94 H Blood Pressure Mean 101 Pulse Ox 94 Oxygen Delivery Method Room Air Positive well nourished, well developed and obese General Appearance ED: well developed and NAD Nutritional Appearance: obese HEENT Reports moist mucous membranes normocephalic and atraumatic Eyes PERRL and EOMs intact bilaterally Neck full ROM, no lymphadenopathy, supple and no JVD Resp normal respiratory effort and clear to auscultation bilaterally Cardio regular rate, regular rhythm and no murmurs Rate: tachycardic GI non-tender and non-distended Auscultation: normoactive bowel sounds Palpation: soft Back/Spine no CVA tenderness General Back: other FROM Extremity normal to inspection General Extremety ED: Negative for edema, pulses abnormal or tenderness General Extremity: Negative for edema or pulses abnormal Neuro oriented x3, CN's II-XII intact bilaterally and no sensory deficits noted Sensorium / Orientation: awake and alert Motor Exam: strength 5/5 throughout Psych Mood & Affect: anxious and tearful Skin no rashes or lesions noted and no wounds MDM MDM MDM Narrative Medical decision making narrative: Was given a duo nebulizer treatment while we were working her up for her symptoms. Her potassium was 2.6, unknown if this is from loss or more from hyperventilating since she has had some much bronchospasm. She has not had a lot of vomiting but she has had some. Of more concern is her white blood count of almost 35 with a leftward shift. Slight number of bands noted, 1.4%. Her troponin and BNP are normal, she has mild elevation of her creatinine, and a D-dimer that is significantly elevated at 2.4. Chest x-ray 2 views of my interpretation look normal, radiology was in agreement so we sent her for CTA of the chest. That was essentially negative for anything acute, I reviewed the images. My interpretation of the CT agrees with that of the radiologist. Radiology did note that she has hypertrophy of both adrenal glands and it is stable compared with an old scan. On reevaluation of the patient, she is breathing better conversing in full sentences, her tachycardia is resolved, she has developed no hypoxemia even with ambulating, and doing so back and forth to the bathroom without difficulty. We conversed more. She states she was seen here 2 weeks ago for the same thing which she did not tell me initially so I reviewed those records. When she was seen here, she told that physician a different story. She said she has had all of this for 3 months, and it started with a case of COVID, and she never really stopped coughing as well as some musculoskeletal pain issues. She told the doctor that she has been on antibiotics and steroids without any help. She confirms to me that she has had no steroids since that visit. Her white blood count at that time was 19, and her potassium was 2.9, she was treated with oral replacement. Now her potassium is 2.6 and her white blood count is 35. Unknown if this is something bacterial, her chest CT is normal and the rest of her exam is benign; I will send blood cultures because of the significance of her leukocytosis, or if this is more indicative of leukemia. I do not have a manual smear yet, just an auto differential. Discussed with hospitalist Dr. Durán. He in turn discussed with heme-onc Dr. Madrid, who suggest that this was more likely infectious in etiology, and Dr. Sepulveda also recommended I replace her potassium here in the ED and repeat check it, it was 3.4 on recheck. On searching for possible infections, we then obtained both a urinalysis and a CT abdomen/pelvis given the lack of findings in the chest for such a significant leukocytosis. The urinalysis was very unimpressive with regards to signs of infection, and the CT abdomen/pelvis images were reviewed as well as the report, my interpretation of the CT agrees with that of the radiologist. The abnormal appearance of both kidneys led to the recommendation of an ultrasound, which I then ordered and obtained while she was in the emergency department. The ultrasound is normal. She does have mild RADHIKA, but there is no sign of ischemic infarct or lack of blood flow on ultrasound. Discussed with Dr. Durán again. He agrees that it does not appear that the patient has any radiographic evidence of infection, but given her white blood count, he would recommend treating her the patient with Levaquin for 3 days until the cultures come back, which would cover possible urine involvement and atypical pulmonary involvement, and she should follow-up with her PCP for culture results and repeat of her labs. I think this is reasonable, basically I am concerned about the level of her leukocytosis, but hospitalist does not think any other testing would be performed on the inpatient side considering all that we have accomplished here in the ED. I will also send the patient home with a prescription for potassium pills. She and her family are asking also for medications for pain, nausea, and cough. She was already prescribed Tessalon Perles, I will prescribe her tramadol in addition to some promethazine. Since patient was here for an extended period of time her lactate got repeated and came back a little higher than its initial 1. We will make sure she gets a liter of fluid prior to discharge. I discussed all this with Dr. Adams he is going to follow-up with her as scheduled in 3 days. Blood and urine cultures sent. Lab Data Attestation: I reviewed the patient's lab results. Labs: Laboratory Results - last 24 hr 06/02/22 06/02/22 06/02/22 08:55 08:55 08:55 WBC 34.8 H* RBC 4.08 L Hgb 12.3 Hct 37.8 MCV 92.6 MCH 30.1 MCHC 32.5 RDW Std Deviation 53.6 H RDW Coeff of Kaiser 15.8 H Plt Count 198 MPV 13.2 H Immature Gran % (Auto) 1.400 H Neut % (Auto) 90.0 H Lymph % (Auto) 1.5 L Kendall % (Auto) 6.8 Eos % (Auto) 0.0 Baso % (Auto) 0.3 Absolute Neuts (auto) 31.4 H Absolute Lymphs (auto) 0.53 L Nucleated RBC % 0 Differential Comment COMMENT Diff Path Review May foll D-Dimer Quant (PE/DVT) 2.40 H* Sodium 136 Potassium 2.6 L* Chloride 101 Carbon Dioxide 24.0 Anion Gap 11 BUN 21 H Creatinine 1.35 H Estim Creat Clear Calc 37.86 Est GFR (MDRD) Af Amer 50 L Est GFR (MDRD) Non-Af 42 L BUN/Creatinine Ratio 15.6 Glucose 221 H Lactic Acid Calcium 9.1 Magnesium Troponin I High Sens 11 B-Natriuretic Peptide Urine Color Urine Clarity Urine pH Ur Specific [place] Urine Protein Urine Glucose (UA) Urine Ketones Urine Occult Blood Urine Nitrite Urine Bilirubin Urine Urobilinogen Ur Leukocyte Esterase Urine RBC Urine WBC Ur Squamous Epith Cells Urine Bacteria Urine Mucus 06/02/22 06/02/22 06/02/22 08:55 08:55 12:04 WBC RBC Hgb Hct MCV MCH MCHC RDW Std Deviation RDW Coeff of Kaiser Plt Count MPV Immature Gran % (Auto) Neut % (Auto) Lymph % (Auto) Kendall % (Auto) Eos % (Auto) Baso % (Auto) Absolute Neuts (auto) Absolute Lymphs (auto) Nucleated RBC % Differential Comment Diff Path Review D-Dimer Quant (PE/DVT) Sodium Potassium Chloride Carbon Dioxide Anion Gap BUN Creatinine Estim Creat Clear Calc Est GFR (MDRD) Af Amer Est GFR (MDRD) Non-Af BUN/Creatinine Ratio Glucose Lactic Acid 2.3 H* Calcium Magnesium 2.0 Troponin I High Sens B-Natriuretic Peptide 24.1 Urine Color Urine Clarity Urine pH Ur Specific [place] Urine Protein Urine Glucose (UA) Urine Ketones Urine Occult Blood Urine Nitrite Urine Bilirubin Urine Urobilinogen Ur Leukocyte Esterase Urine RBC Urine WBC Ur Squamous Epith Cells Urine Bacteria Urine Mucus 06/02/22 06/02/22 13:15 16:20 WBC RBC Hgb Hct MCV MCH MCHC RDW Std Deviation RDW Coeff of Kaiser Plt Count MPV Immature Gran % (Auto) Neut % (Auto) Lymph % (Auto) Kendall % (Auto) Eos % (Auto) Baso % (Auto) Absolute Neuts (auto) Absolute Lymphs (auto) Nucleated RBC % Differential Comment Diff Path Review D-Dimer Quant (PE/DVT) Sodium Potassium 3.4 L Chloride Carbon Dioxide Anion Gap BUN Creatinine Estim Creat Clear Calc Est GFR (MDRD) Af Amer Est GFR (MDRD) Non-Af BUN/Creatinine Ratio Glucose Lactic Acid Calcium Magnesium Troponin I High Sens B-Natriuretic Peptide Urine Color Yellow Urine Clarity Clear Urine pH 6.0 Ur Specific [place] 1.005 Urine Protein 30 H Urine Glucose (UA) Normal Urine Ketones Negative Urine Occult Blood 150 H Urine Nitrite Negative Urine Bilirubin Negative Urine Urobilinogen Normal Ur Leukocyte Esterase 100 H Urine RBC 0 SEEN Urine WBC 0-5 SEEN Ur Squamous Epith Cells 0-5 SEEN Urine Bacteria 0 SEEN Urine Mucus 0 SEEN Radiography Diagnostic Testing: Clinical Impression(s) from Imaging Studies Chest X-Ray 06/02/22 09:05 IMPRESSION: Stable examination. No acute abnormality is seen. Electronically Signed: Tommie Nixon MD at 9:25 EST , Chest CTA 06/02/22 10:15 IMPRESSION: No evidence of pulmonary embolism. Mild bibasilar atelectasis. Stable hypertrophy of the adrenal glands bilaterally. Electronically Signed: Tommie Nixon MD at 10:37 EST , Abdomen CT 06/02/22 13:22 IMPRESSION: Heterogeneous appearance of the renal cortices bilaterally as described. This may represent bilateral areas of pyelonephritis versus possible embolism. Correlation with the ultrasound of the kidneys is recommended. Electronically Signed: Tommie Nixon MD at 14:12 EST , Renal Ultrasound 06/02/22 15:26 IMPRESSION: No acute findings of the ultrasound of the kidneys and urinary bladder. Note: Renal size measurements and size measurements of other organs etc may vary depending on modality and prototype machine operator dependent variations in measurements. (i.e. Measuring a kidney on an US does not correlate with an exact same measurement on a CT.) Electronically Signed: Philip Gonzalez MD at 16:47 EST , Rhythm Strip Rhythm Strip: Sinus Tach Rate: 120 Ectopy: None EKG Initial EKG: Attestation: I personally reviewed and interpreted this EKG as follows: Interpretation: No Acute Injury Pattern, Sinus Tachycardia and Non-Specific ST Changes (Mostly precordial leads, suspect rate dependent.) Discharge Plan Triage Chief Complaint: Cough ED Provider: Heber Mueller Dx/Rx/DC Orders Clinical Impression: Acute dyspnea, Leukocytosis, Hypokalemia, RADHIKA (acute kidney injury) Instructions: White Blood Cell Count, ED Hypokalemia Prescriptions: New tramadol 50 mg tablet 50 mg PO Q6H PRN (Reason: pain) 3 Days Qty: 12 0RF promethazine [promethazine] 25 mg tablet 25 mg PO Q6H PRN PRN (Reason: Nausea) Qty: 12 0RF potassium chloride [K-Tab] 20 mEq tablet extended release 20 meq PO BID Qty: 10 0RF levofloxacin 750 mg tablet 750 mg PO DAILY Qty: 2 0RF No Action aspirin 81 mg tablet,chewable 81 mg PO DAILY fexofenadine [Fozia Allergy] 180 mg tablet 180 mg PO DAILY PRN (Reason: SEASONAL ALLERGIES) gabapentin 400 mg capsule 400 mg PO BID Qty: 180 1RF ibuprofen 800 mg tablet 800 mg PO TID PRN (Reason: pain) Qty: 270 3RF (DME) handicap placard See Rx Instructions .Route .MEDSUPPLY Qty: 1 0RF Rx Instructions: length of time=5years Dx=Debility Vicks DayQuil 30 ml PO/SL Q4H PRN (Reason: Cold Symptoms) Primary Care Provider: John Adams Referrals: John Adams, [Primary Care Provider] - [facility] appointment Disposition Disposition: Home, Self Care
[2022-06-02] MEDS: Ipratropium/Albuterol Sulfate 3 ML AMPUL.NEB INHALATION (08:56)
[2022-06-02 09:04] LABS: Absolute Lymphocyte Count 0.53 X10^3/uL (0.83-4.51); Absolute Neutrophil Count 31.4 X10^3/uL (2.0-7.7); Basophil# 0.09 X10^3/uL; Basophil% 0.3 % (0-1); Eosinophil# 0.01 X10^3/uL; Hematocrit 37.8 % (37-47); Hemoglobin 12.3 g/dL (12.0-15.0); Lymphocyte # 0.53 X10^3/ul (0.83-4.51); Lymphocyte % 1.5 % (19-41); Mean Corp Hgb Conc 32.5 g/dL (32-36); Mean Corpuscular Hgb 30.1 pg (27.0-32.0); Mean Corpuscular Volume 92.6 fL (81-99); Mean Platelet Vol. 13.2 fl (6.2-12.0); Monocyte# 2.36 X10^3/uL; Monocyte% 6.8 % (0-10); NRBC Flagged by Analyzer 0 % (0-5); Neutrophil # 31.35 X10^3/uL (2.7-7.7); POSITIVE COUNT YES; POSITIVE DIFFERENTIAL YES; Platelet Count 198 K/mm3 (150-450); RBC Distribution Width CV 15.8 % (11.6-14.6); RBC Distribution Width SD 53.6 fl (35.1-43.9); Red Blood Count 4.08 M/mm3 (4.2-5.4)
--- NOTE | 2022-06-02 09:05 | RAD_ITS ---
STUDY: X-RAY CHEST REASON FOR EXAM: Female, 66 years old. Cough, sob TECHNIQUE: PA and lateral views of the chest. COMPARISON: Comparison is made with prior study dated 03/26/2022. FINDINGS: The lungs are clear and expanded. There is no demonstrated pleural abnormality. Normal size heart. Normal mediastinum and damien. Normal visualized pulmonary arteries. There is atherosclerotic calcification of the aortic arch with tortuosity. There are diffuse degenerative changes of the visualized thoracic spine. Normal visualized ribs, clavicles, and shoulders. There is no demonstrated abnormality of the visualized soft tissue structures of the upper abdomen. RAD/Chest PA and Lateral IMPRESSION: Stable examination. No acute abnormality is seen. Electronically Signed: Tommie Nixon MD at 9:25 EST ,
[2022-06-02 09:07] LABS: Differential Indicated SCAN CRITERIA MET; White Blood Count 34.8 K/mm3 (4.4-11.0)
[2022-06-02 09:22] LABS: Anion Gap 11 (5-15); BUN 21 mg/dL (7-18); BUN/Creat Ratio 15.6 RATIO (10-20); Calcium,Total 9.1 mg/dL (8.5-10.1); Chloride 101 mmol/L (98-107); Creatinine, Serum 1.35 mg/dL (0.55-1.02); EST Glomerular Filtration Rate 42 mL/min (>60); Est Glom Filt Rate - Afr Amer 50 mL/min (>60); Estimated Creatinine Clearance 37.86 ml/min; Glucose 221 mg/dL (74-106); Potassium 2.6 mmol/L (3.5-5.1); Sodium Level 136 mmol/L (136-145); Troponin-I HS 11 pg/mL (3.0-54.0)
[2022-06-02 09:38] LABS: BNP,B-Type NATRIURETIC PEPTIDE 24.1 pg/mL (0-100)
--- NOTE | 2022-06-02 10:15 | CT_ITS ---
STUDY: CTA CHEST REASON FOR EXAM: Female, 66 years old. sob, elevated d-dimer RADIATION DOSAGE (If Supplied By Facility): CTDIvol = ( 12.40 ) mGy, DLP = ( 522.82 ) mGycm TECHNIQUE: The examination was performed with the intravenous administration of IV 100mL [id number]. Post-processing of the angiographic images was performed, with multiplanar reformation and 3D reconstruction. Individualized dose optimization techniques were used for this CT. COMPARISON: Comparison is made with prior study dated 05/21/2022. FINDINGS: Normal enhancement of the main pulmonary artery and right and left pulmonary arteries. Normal enhancement of the bilateral peripheral pulmonary arteries. There is no demonstrated pulmonary embolism. Normal thoracic aorta and visualized great vessels. There is no demonstrated aortic dissection. Normal heart and pericardium. Normal mediastinum. Normal hilar regions. Normal visualized trachea and bronchi. The lungs are well expanded. Mild increased markings at the lung bases suggestive of basilar atelectasis. Normal pleura. Normal chest wall structures. Normal osseous structures. Hyperplasia of the adrenal glands. Fatty infiltration of the liver. CT/CTA Chest W/WO Contrast IMPRESSION: No evidence of pulmonary embolism. Mild bibasilar atelectasis. Stable hypertrophy of the adrenal glands bilaterally. Electronically Signed: Tommie Nixon MD at 10:37 [facility] ,
--- NOTE | 2022-06-02 12:24 | NURSING ---
DR OLIVAS FOR DR POTTER
[2022-06-02] MEDS: Potassium Chloride Oral Tablet 20 MEQ 40 MEQ PO (12:30)
[2022-06-02] MEDS: Potassium Chloride 10mEq/100mL 10 MEQ/100 ML IV.SOLN. 100 MEQ IV BOLUS ×3 (12:35→15:07)
[2022-06-02 12:44] LABS: Lactic Acid 2.3 mmol/L (0.4-1.9)
--- NOTE | 2022-06-02 13:22 | CT_ITS ---
STUDY: CT ABDOMEN WITHOUT CONTRAST REASON FOR EXAM: Female, 66 years old. LEUKOCYTOSIS RADIATION DOSAGE (If Supplied By Facility): CTDIvol = ( 21.62 ) mGy, DLP = ( 692.30 ) mGycm TECHNIQUE: Transaxial images were obtained without intravenous contrast, and without oral contrast. Sagittal and coronal images were reconstructed. Contrast is seen within the renal collecting system secondary to prior CTA of the chest done earlier today. Individualized dose optimization techniques were used for this CT. COMPARISON: None. FINDINGS: The visualized lung bases are unremarkable. The visualized portions of the heart are within normal limits. Borderline hepatomegaly. Fatty infiltration of the liver. Normal gallbladder and extrahepatic biliary system. Normal spleen. Normal pancreas. Hyperplasia of the adrenal glands. Heterogeneous appearance of the renal cortex of both kidneys. These may represent areas of bilateral pyelonephritis versus infarct. Correlation with ultrasound is recommended. Normal visualized stomach. Normal small intestine. Normal colon. The appendix is visualized and appears normal. Normal abdominal aorta. Normal inferior vena cava. Normal retroperitoneum. Normal abdominal wall. Normal osseous structures. CT/Abdomen without IV Contrast IMPRESSION: Heterogeneous appearance of the renal cortices bilaterally as described. This may represent bilateral areas of pyelonephritis versus possible embolism. Correlation with the ultrasound of the kidneys is recommended. Electronically Signed: Tommie Nixon MD at 14:12 EST ,
[2022-06-02 13:23] LABS: Bacteria 0 SEEN /hpf (None Seen); Mucous, Urine 0 SEEN /hpf (<or=2+); Red Blood Cells-Urine 0 SEEN /hpf (0-5)
[2022-06-02 13:26] LABS: Color, Urine Yellow (Yellow); Glucose, Dipstick Normal (Normal); Ketone-Dipstick Negative (Negative); Leukocyte Esterase-Dipstick 100 /ul (Negative); Nitrite-Dipstick Negative (Negative); Occult Blood-Urine 150 /ul (Negative); Protein-Dipstick 30 mg/dl (Negative); Specific Gravity, Urine 1.005 (1.002-1.030); Urine Bilirubin Dipstick Negative (Negative); Urine Clarity Clear (Clear); Urine Urobilinogen Normal (Normal)
[2022-06-02 13:35] LABS: Squamous Epithelial Cells - UA 0-5 SEEN /hpf (5-10); White Blood Cells 0-5 SEEN /hpf (0-5)
[2022-06-02] MEDS: Ketorolac 15 MG/ML Vial IV (13:35)
[2022-06-02] MEDS: Ondansetron 4 MG/2 ML Vial IV (14:41)
--- NOTE | 2022-06-02 15:26 | US_ITS ---
STUDY: RENAL ULTRASOUND - COMPLETE REASON FOR EXAM: Female, 66 years old. RADHIKA, abn CT, leukocytosis TECHNIQUE: Ultrasound evaluation of the kidneys was performed with real-time and static holland-scale imaging. COMPARISON: ct 06.02.22. FINDINGS: RIGHT KIDNEY: Normal location of the right kidney, which is normal in size. The right kidney measures 11.8x5.3 cm. . There is a normal cortex of the right kidney. There is no right renal mass or cyst. There are no right renal calculi. There is no right hydronephrosis. DISTAL RIGHT URETER: There is non-visualization of the distal right ureter. There is no demonstrated right ureterovesical junction calculus. There is no demonstrated right ureteral jet. LEFT KIDNEY: Normal location of the left kidney, which is normal in size. The left kidney measures 13.1x6.3 cm. . There is a normal cortex of the left kidney. There is no left renal mass or cyst. There are no left renal calculi. There is no left hydronephrosis. DISTAL LEFT URETER: There is non-visualization of the distal left ureter. There is no demonstrated left ureterovesical junction calculus. There is no demonstrated left ureteral jet. AORTA: There is obscuration of the abdominal aorta by overlying bowel gas I.V.C.: It is not visualized. There is too much overlying bowel gas. BLADDER: There is a normal wall thickness of the distended urinary bladder. There is no demonstrated mass within the urinary bladder. There are no demonstrated bladder calculi. US/Kidney and Bladder IMPRESSION: No acute findings of the ultrasound of the kidneys and urinary bladder. Note: Renal size measurements and size measurements of other organs etc may vary depending on modality and locomotive crane operator helper dependent variations in measurements. (i.e. Measuring a kidney on an US does not correlate with an exact same measurement on a CT.) Electronically Signed: Philip Gonzalez MD at 16:47 EST ,
[2022-06-02] MEDS: traMADol 50 MG Tablet PO (15:32)
[2022-06-02 16:08] LABS: Reflex Lactate? Y
[2022-06-02 16:32] LABS: Potassium 3.4 mmol/L (3.5-5.1)
[2022-06-02 17:11] LABS: Lactic Acid 3.1 mmol/L (0.4-1.9)
[2022-06-02] MEDS: levoFLOXacin 750 MG Tablet PO (17:27)
[2022-06-02] MEDS: 0.9% Normal Saline 1,000 ML 999 ML IV (17:27)
--- NOTE | 2022-06-03 06:53 | ED.RN ---
LEFT A MESSAGE ON HOME PHONE FOR PATIENT TO RETURN TO ED REGARDING POSITIVE BLOOD CULTURES. WILL ATTEMPT AGAIN LATER TODAY.
--- NOTE | 2022-06-03 08:04 | ED.RN ---
THIS RN ATTEMPTED TO CALL THE PATIENT REGARDING BLOOD CULTURE RESULTS, LEFT A VOICE MESSAGE WITH CALL BACK NUMBER.
[2022-06-03 13:20] LABS: Pathologist Review Reviewed
--- NOTE | 2022-06-03 19:16 | ED.RN ---
THIS RN CALLED PT. PT ANSWER PHONE, CONFIRMS IDENTITY, PT INFORMED OF POSITIVE BLOOD CULTURE RESULTS AND INFORMED THAT SHE NEEDS TO RETURN TO THE EMEGENCY ROOM. PT TEARFUL, VERBALIZES UNDERSTANDING. PT REPORTS THAT SHE HAS FAMILY AT HOME WHO CAN BRING HER TO THE ED. PT HANGS UP BEFORE THIS RN CAN SPEAK ANY FURTHER.
== END 2022-06-02 18:47 | disposition home or self-care (01) ==
PROVIDERS: Emergency Provider Emergency Medicine; PCP Family Medicine; Visit Provider Emergency Medicine
DX: R06.00 Dyspnea, unspecified (principal); N17.9 Acute kidney failure, unspecified; R11.2 Nausea with vomiting, unspecified; D72.829 Elevated white blood cell count, unspecified; E87.6 Hypokalemia; E66.9 Obesity, unspecified
CPT/HCPCS: 99284; 71046; 71275; 74150; 76770; 80048; 81001; 83605; 83735; 83880; 84132; 84484; 85025; 85379; 87040; 87077; 93005; 94640; J7030; Q9967; A4216; J2405

== ENCOUNTER 2022-06-03 20:30 | Inpatient (IN) | payer MEDICARE, OTHER, SELFPAY ==
[2022-06-03] VITALS (7 sets, daily range): BP systolic 102–143; BP diastolic 69–85; PULSE 83–102; RESP 16–24; TEMP 36.6–36.9; O2SAT 96–98; BMI 37.1; BMI 36.1
--- NOTE | 2022-06-03 20:51 | EKG12_ITS ---
Test Reason : DYSRHYTHMIA Blood Pressure : / mmHG Vent. Rate : 092 BPM Atrial Rate : 092 BPM P-R Int : 150 ms QRS Dur : 110 ms QT Int : 372 ms P-R-T Axes : 051 008 016 degrees QTc Int : 460 ms Normal sinus rhythm Incomplete right bundle branch block Left ventricular hypertrophy Nonspecific ST abnormality Abnormal ECG Confirmed by SARANYA GARCIA, COLLETTE ([id number]), film and video editor JENNIFER JAMES ([id number]) on 06/04/2022 1:46:11 PM Referred By: MARCO Confirmed By:COLLETTE BEAVER MD
[2022-06-03 21:17] LABS: Absolute Neutrophil Count 30.8 X10^3/uL (2.0-7.7); Basophil# 0.14 X10^3/uL; Basophil% 0.4 % (0-1); Eosinophil# 0.02 X10^3/uL; Eosinophils% 0.1 % (0-5); Hematocrit 34.3 % (37-47); Hemoglobin 11.2 g/dL (12.0-15.0); Lymphocyte % 4.5 % (19-41); Mean Corp Hgb Conc 32.7 g/dL (32-36); Mean Corpuscular Hgb 29.2 pg (27.0-32.0); Mean Corpuscular Volume 89.6 fL (81-99); Mean Platelet Vol. 13.6 fl (6.2-12.0); Monocyte# 2.07 X10^3/uL; Monocyte% 5.8 % (0-10); NRBC Flagged by Analyzer 0 % (0-5); Neutrophil # 30.78 X10^3/uL (2.7-7.7); Neutrophil % 86.8 % (47-70); POSITIVE COUNT YES; POSITIVE DIFFERENTIAL YES; Platelet Count 215 K/mm3 (150-450); RBC Distribution Width CV 15.9 % (11.6-14.6); RBC Distribution Width SD 52.6 fl (35.1-43.9); Red Blood Count 3.83 M/mm3 (4.2-5.4)
[2022-06-03 21:29] LABS: International Normalized Ratio 1.3; Prothrombin Time (Protime)PT. 16.2 SECONDS (11.7-14.9)
[2022-06-03 21:30] LABS: Partial Thromboplast Time 32.2 Seconds (24.1-36.2)
[2022-06-03 21:32] LABS: Differential Indicated SCAN CRITERIA MET; White Blood Count 35.5 K/mm3 (4.4-11.0)
--- NOTE | 2022-06-03 21:32 | EDS_ITS ---
HPI History of Present Illness Chief Complaint: Shortness of Breath Informant: patient and family Narrative Narrative: Patient called back in to the hospital for evaluation. Here with family. Was seen yesterday extensive work-up with positive blood culture x2. Reported patient has been ill since February 3 months ago. She has been treated for pneumonia. She has been treated for urine infections. She states antibiotics with help however symptoms returned when she finishes antibiotics. Reports persistent dyspnea with exertion. No current cough symptoms. No current urinary symptoms. No recent vomiting or diarrhea. Intermittent fevers. After evaluation reviewed records from yesterday. Patient had 34,000 white count that was new. Lactic acid up to 3.1. She had slight renal insufficiency. She has hypokalemia. She was given fluids, potassium was replaced. Extensive discussion with hospitalist service with plan of care. Apparently hospitalist service discussed with heme oncology, also discussion with pulmonology for follow-up by ED physician. Plan was treatment with Levaquin pending blood cultures. Patient had a CTA of the chest yesterday that was negative. CT abdomen pelvis also negative renal ultrasound also negative. There is no pneumonia or PE. [facility] Medical History Chronic back pain Rheumatoid arthritis Uncomplicated opioid dependence Home Medications aspirin 81 mg chewable tablet 81 mg PO DAILY HEALTH MAINTENANCE 05/30/19 [History Last Taken 06/01/22] fexofenadine 180 mg tablet (Fozia Allergy) 180 mg PO DAILY PRN SEASONAL ALLERGIES 05/15/20 [History Last Taken Unknown] gabapentin 400 mg capsule 400 mg PO BID back pain #180 caps 02/24/22 [Rx Last Taken 1 Month Ago ~05/02/22] ibuprofen 800 mg tablet 800 mg PO TID PRN pain #270 tabs 02/24/22 [Rx Last Taken 06/01/22] handicap placard #1 ea 05/08/22 [Rx Last Taken Unknown] Vicks DayQuil 30 ml PO/SL Q4H PRN Cold Symptoms 06/02/22 [History Last Taken 05/31/22] levofloxacin 750 mg tablet 750 mg PO DAILY #2 tabs 06/02/22 [Rx Last Taken Unknown] potassium chloride 20 mEq tablet,extended release (K-Tab) 20 meq PO BID #10 tabs 06/02/22 [Rx Last Taken Unknown] promethazine 25 mg tablet 25 mg PO Q6H PRN PRN Nausea #12 TABLETS 06/02/22 [Rx Last Taken Unknown] tramadol 50 mg tablet 50 mg PO Q6H PRN pain 3 days #12 tabs 06/02/22 [Rx Last Taken Unknown] Allergy/AdvReac Type Severity Reaction Status Date / Time No Known Allergies Allergy Verified 06/02/22 08:20 Family History Mother Diabetes Father Heart disease Cancer Surgical History History of back surgery History of bilateral knee replacement History of carpal tunnel release History of tonsillectomy History of tubal ligation Social History Smoking Status: Never smoker alcohol intake: never substance use type: does not use what type of physical activity do you participate in: other details: stretches frequency: daily ROS ROS ED Constitutional Constitutional ED: Reports fever(s); Denies chills or sweats Eyes Eyes: Denies change in vision ENT ENT ED: Denies dysphagia or sore throat Cardiovascular Cardiovascular: Denies chest pain, leg edema, palpitations or racing heartbeat Respiratory/Chest Respiratory/Chest: Reports cough and dyspnea; Denies dyspnea on exertion Gastrointestinal Gastrointestinal: Denies abdominal pain, diarrhea, nausea or vomiting Genitourinary Genitourinary ED: Denies dysuria, hematuria or urinary frequency Musculoskeletal Musculoskeletal: Denies back pain, extremity pain or neck pain Integumentary Denies rash or wounds Neurologic Neurologic: Denies headache(s), paresthesias or weakness EXAM Physical Exam Const Vital Signs: 06/03/22 20:31 06/03/22 20:42 06/03/22 20:43 Temperature 97.8 F Temperature Source Temporal Pulse Rate 102 H 98 Respiratory Rate 24 H 20 H Respiratory Effort Short of Breath Respiratory Depth Deep Respiratory Pattern Normal Blood Pressure 102/83 H 131/85 H Blood Pressure Mean 89 100 Pulse Ox 97 97 Oxygen Delivery Method Room Air Room Air Room Air 06/03/22 20:55 06/03/22 21:26 Temperature 97.8 F Temperature Source Temporal Pulse Rate 87 Respiratory Rate 24 H Respiratory Effort Respiratory Depth Respiratory Pattern Blood Pressure 119/73 Blood Pressure Mean 88 Pulse Ox 98 96 Oxygen Delivery Method Room Air Room Air Positive well nourished and well developed General Appearance ED: well developed and NAD HEENT Reports moist mucous membranes normocephalic and atraumatic Eyes PERRL, EOMs intact bilaterally and conjunctivae normal General Eye ED: Yes normal appearance of both eyes Neck no lymphadenopathy and supple General: Negative for tenderness Chest Wall Chest: Negative for tenderness Resp normal respiratory effort and normal air movement Effort and Inspection: symmetric chest movement; Negative for respiratory distress Cardio regular rate, regular rhythm and no murmurs Peripheral Pulses: pulses 2+ throughout GI normal to inspection, nondistended, normoactive bowel sounds and non-tender Palpation: Negative for guarding or rebound tenderness present Back/Spine no CVA tenderness and no thoracic nor lumbar tenderness Extremity normal to inspection General Extremety ED: Negative for edema or tenderness General Extremity: Negative for edema Neuro oriented x3 and no sensory deficits noted Sensorium / Orientation: awake and alert Skin no rashes or lesions noted and no wounds Sepsis Attestation Sepsis Alert: Yes Sepsis Attestation: Agree w/Sepsis Date exam was performed: 06/03/22 Time exam was performed: 22:05 Possible Source of Sepsis: Unknown and Other Sepsis Organ Dysfunction Criteria Present: Lactic Acid > 2 mmol/L Fluid Resuscitation Fluid Resuscitation ordered: Fluids not indicated Sepsis Note Date exam was performed: 06/03/22 Time exam was performed: 22:06 Sepsis Attestation: Sepsis re-evaluation was performed MDM MDM MDM Narrative Medical decision making narrative: Interventions / MDM: Differential diagnosis: Bacteremia, UTI, leukemia Diagnosis considered but do not suspect: Pneumonia however images negative yesterday. Pulmonary embolism however image also negative yesterday. My EKG interpretation: Sinus rate of 92, no ST changes or signs of T wave version leads III. Intraventricular delay QRS of 110. Similar from EKG from yesterday. Imaging independently reviewed and interpreted by myself: N/A External documents reviewed: N/A Test considered but not ordered:N/A ED course: Patient bacteremic with gram negative rods x2. She is afebrile vitals are stable not hypoxic. Recheck sepsis labs. She started IV Zosyn. I discussed with hospitalist Dr. Perry for admission. Discussed possible partial treatment of bacteremia since February as she would improve with antibiotics and symptoms to return. WBC returning at 35.5, elevated neutrophils, no reported bandemia. Potassium 2.8, oral replacement was given. Creatinine 1.03 today. Lactic acid 2.4. Sent meeting severe sepsis criteria with leukocytosis initial tachycardia and tachypnea. No clear source at this time however is bacteremia. Blood pressure remained stable. Remained stable for PCU. Re-evaluation: stable Disposition discussed with patient/family/significant other: Patient and family Case discussed with consulting clinician: N/A Lab Data Attestation: I reviewed the patient's lab results. Labs: Laboratory Results - last 24 hr 06/03/22 06/03/22 06/03/22 20:43 20:43 20:43 WBC 35.5 H* RBC 3.83 L Hgb 11.2 L Hct 34.3 L MCV 89.6 MCH 29.2 MCHC 32.7 RDW Std Deviation 52.6 H RDW Coeff of Kaiser 15.9 H Plt Count 215 MPV 13.6 H Immature Gran % (Auto) 2.400 H Neut % (Auto) 86.8 H Lymph % (Auto) 4.5 L [place] % (Auto) 5.8 Eos % (Auto) 0.1 Baso % (Auto) 0.4 Absolute Neuts (auto) 30.8 H Absolute Lymphs (auto) 1.60 Nucleated RBC % 0 PT 16.2 H INR 1.3 APTT 32.2 Sodium 134 L Potassium 2.8 L Chloride 99 Carbon Dioxide 24.0 Anion Gap 11 BUN 12 Creatinine 1.03 H Estim Creat Clear Calc 49.62 Est GFR (MDRD) Af Amer 69 Est GFR (MDRD) Non-Af 57 L BUN/Creatinine Ratio 11.7 Glucose 217 H Lactic Acid Calcium 9.1 Total Bilirubin 1.40 H AST 15 ALT 18 Alkaline Phosphatase 155 H Total Protein 6.5 Albumin 2.1 L Globulin 4.4 H Albumin/Globulin Ratio 0.5 L 06/03/22 20:43 WBC RBC Hgb Hct MCV MCH MCHC RDW Std Deviation RDW Coeff of Kaiser Plt Count MPV Immature Gran % (Auto) Neut % (Auto) Lymph % (Auto) [place] % (Auto) Eos % (Auto) Baso % (Auto) Absolute Neuts (auto) Absolute Lymphs (auto) Nucleated RBC % PT INR APTT Sodium Potassium Chloride Carbon Dioxide Anion Gap BUN Creatinine Estim Creat Clear Calc Est GFR (MDRD) Af Amer Est GFR (MDRD) Non-Af BUN/Creatinine Ratio Glucose Lactic Acid 2.4 H* Calcium Total Bilirubin AST ALT Alkaline Phosphatase Total Protein Albumin Globulin Albumin/Globulin Ratio EKG Initial EKG: Attestation: I personally reviewed and interpreted this EKG as follows: Comments: Sinus rate of 92, no ST changes or signs of T wave version leads III. Intraventricular delay QRS of 110. Similar from EKG from yesterday. 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
[2022-06-03 21:33] LABS: ALB/GLOB Ratio 0.5 RATIO (0.9-2.4); AST(SGOT) 15 U/L (15-37); Alanine Aminotransfer ALT/SGPT 18 U/L (13-56); Albumin, Serum 2.1 g/dL (3.2-5.0); Alkaline Phosphatase 155 U/L (45-117); Anion Gap 11 (5-15); BUN 12 mg/dL (7-18); BUN/Creat Ratio 11.7 RATIO (10-20); Calcium,Total 9.1 mg/dL (8.5-10.1); Chloride 99 mmol/L (98-107); Creatinine, Serum 1.03 mg/dL (0.55-1.02); EST Glomerular Filtration Rate 57 mL/min (>60); Est Glom Filt Rate - Afr Amer 69 mL/min (>60); Estimated Creatinine Clearance 49.62 ml/min; Globulin 4.4 g/dL (2.2-4.2); Glucose 217 mg/dL (74-106); Potassium 2.8 mmol/L (3.5-5.1); Protein, Total 6.5 g/dL (6.4-8.2); Sodium Level 134 mmol/L (136-145)
[2022-06-03 21:46] LABS: Lactic Acid 2.4 mmol/L (0.4-1.9)
[2022-06-03] MEDS: Potassium Chloride Oral Tablet 20 MEQ 40 MEQ PO ×2 (22:19→23:42)
[2022-06-03 22:29] LABS: Differential Comment SCANNED
[2022-06-03] MEDS: Ondansetron 4 MG/2 ML Vial IV (22:42)
[2022-06-03] MEDS: 0.9% Normal Saline 1,000 ML 999 ML IV (23:20)
[2022-06-03 23:40] LABS: Blood Gas Specimen Type VEN; O2 Delivery Device Room Air; VBG BASE EXCESS 1 mmol/L (-1.0-3.5); VBG Bicarbonate 24 mmol/L (22-26); VBG PO2 140 mmHg (25-40); VBG SO2 100 % (50-70); VBG TCO2 24 mmol/L (23-33); VBG pCO2 26.1 mmHg (41-51); VBG pH 7.56 (7.32-7.42)
[2022-06-04 01:12] LABS: Reflex Lactate? Y
[2022-06-04] MEDS: Calcium Carbonate 500 MG Tablet PO (01:31)
--- NOTE | 2022-06-04 01:32 | PCM.HP.STD ---
HPI - General General Date of Admission: 06/03/22 Date of Service: 06/03/22 Chief Complaint: Worsened cough HPI Narrative PAUL MEHTA, is a 66-year-old female with a history of rheumatoid arthritis and chronic back pain who presented to [facility] 06/03/2022 after being called for 2 out of 2 blood cultures obtained the day prior positive for gram-negative rods. She reports she initially was sick 4 months ago with COVID and since that time and has had a waxing and waning course of shortness of breath and cough. Cough is worsened over the past month with intermittent yellow sputum then primarily clear, has also had some worsened shortness of breath which did worsen further over the past 48 hours. She did present yesterday 06/02 and ultimately was discharged on Levaquin but today the blood cultures were noted to be positive and she was called back. Today she reports she does feel worse from shortness of breath standpoint as well as coughing and has had poor appetite and nausea since yesterday as well as some right-sided pain when she coughs, did not report any other specific complaints at this time. [facility] Medical History Chronic back pain Rheumatoid arthritis Uncomplicated opioid dependence Home Medications aspirin 81 mg chewable tablet 81 mg PO DAILY HEALTH MAINTENANCE 05/30/19 [History Last Taken 06/01/22] fexofenadine 180 mg tablet (Fozia Allergy) 180 mg PO DAILY PRN SEASONAL ALLERGIES 05/15/20 [History Last Taken Unknown] gabapentin 400 mg capsule 400 mg PO BID back pain #180 caps 02/24/22 [Rx Last Taken 1 Month Ago ~05/02/22] ibuprofen 800 mg tablet 800 mg PO TID PRN pain #270 tabs 02/24/22 [Rx Last Taken 06/01/22] handicap placard #1 ea 05/08/22 [Rx Last Taken Unknown] Vicks DayQuil 30 ml PO/SL Q4H PRN Cold Symptoms 06/02/22 [History Last Taken 05/31/22] levofloxacin 750 mg tablet 750 mg PO DAILY #2 tabs 06/02/22 [Rx Last Taken Unknown] potassium chloride 20 mEq tablet,extended release (K-Tab) 20 meq PO BID #10 tabs 06/02/22 [Rx Last Taken Unknown] promethazine 25 mg tablet 25 mg PO Q6H PRN PRN Nausea #12 TABLETS 06/02/22 [Rx Last Taken Unknown] tramadol 50 mg tablet 50 mg PO Q6H PRN pain 3 days #12 tabs 06/02/22 [Rx Last Taken Unknown] Allergy/AdvReac Type Severity Reaction Status Date / Time No Known Allergies Allergy Verified 06/02/22 08:20 Family History Mother Diabetes Father Heart disease Cancer Surgical History History of back surgery History of bilateral knee replacement History of carpal tunnel release History of tonsillectomy History of tubal ligation Social History Smoking Status: Never smoker alcohol intake: never substance use type: does not use what type of physical activity do you participate in: other details: stretches frequency: daily ROS ROS Narrative General: General malaise HENT: Denies headache, denies stuffy nose, denies sore throat EYES: Denies changes in vision Resp: Cough with intermittent production, shortness of breath off and on for 4 months Cardiac: Denies chest pain GI: Denies abdominal pain, has had decreased appetite with some nausea since yesterday : Denies changes in urination Extremity: Denies swelling MSK: Denies weakness Neuro: Denies any numbness, denies tingling Heme: Denies any bleeding or bruising Skin: Denies rashes Psychiatric: No complaints voiced Vital Signs Vital Signs Vital Signs: 06/03/22 20:31 06/03/22 20:42 06/03/22 20:43 Temperature 97.8 F Temperature Source Temporal Pulse Rate 102 H 98 Respiratory Rate 24 H 20 H Respiratory Effort Short of Breath Respiratory Depth Deep Respiratory Pattern Normal Blood Pressure 102/83 H 131/85 H Blood Pressure Mean 89 100 Blood Pressure Source Blood Pressure Position Blood Pressure Location Pulse Ox 97 97 Oxygen Delivery Method Room Air Room Air Room Air 06/03/22 20:55 06/03/22 21:26 06/03/22 22:14 Temperature 97.8 F Temperature Source Temporal Pulse Rate 87 83 Respiratory Rate 24 H 16 Respiratory Effort Respiratory Depth Respiratory Pattern Blood Pressure 119/73 126/69 H Blood Pressure Mean 88 88 Blood Pressure Source Blood Pressure Position Blood Pressure Location Pulse Ox 98 96 96 Oxygen Delivery Method Room Air Room Air Room Air 06/03/22 23:12 06/03/22 23:32 06/03/22 23:12 Temperature 98.4 F 98.4 F Temperature Source Oral Oral Pulse Rate 86 86 Respiratory Rate 18 18 Respiratory Effort Short of Breath Respiratory Depth Normal Respiratory Pattern Tachypnea Blood Pressure 143/82 H 143/82 H Blood Pressure Mean 97 102 Blood Pressure Source Monitor Blood Pressure Position Semi-Fowlers Blood Pressure Location Right Arm Pulse Ox 97 97 Oxygen Delivery Method Room Air Room Air Room Air Weight Weight: 101.7 kg Body Mass Index (BMI) 36.1 Physical Exam Narrative General: Alert, oriented HEENT: Atraumatic, normocephalic Eyes: Anicteric, normal conjunctiva, extraocular movements grossly intact Neck: Supple Respiratory: Somewhat diminished bilaterally, normal respiratory effort Cardiovascular: Regular rate and rhythm GI: Soft, nontender, nondistended Extremities: No edema Musculoskeletal: Moving all extremities Neuro: No overt focal neurological deficits Skin: No rashes appreciated Psych: Cooperative Results Lab / Micro Data Result Diagrams: 06/04/22 05:12 06/04/22 05:12 Labs: Laboratory Results - last 24 hr 06/03/22 20:43: WBC 35.5 H*, RBC 3.83 L, Hgb 11.2 L, Hct 34.3 L, MCV 89.6, MCH 29.2, MCHC 32.7, RDW Std Deviation 52.6 H, RDW Coeff of Kaiser 15.9 H, Plt Count 215, MPV 13.6 H, Immature Gran % (Auto) 2.400 H, Neut % (Auto) 86.8 H, Lymph % (Auto) 4.5 L, [place] % (Auto) 5.8, Eos % (Auto) 0.1, Baso % (Auto) 0.4, Absolute Neuts (auto) 30.8 H, Absolute Lymphs (auto) 1.60, Nucleated RBC % 0, Differential Comment SCANNED, Diff Path Review August foll 06/03/22 20:43: PT 16.2 H, INR 1.3, APTT 32.2 06/03/22 20:43: Sodium 134 L, Potassium 2.8 L, Chloride 99, Carbon Dioxide 24.0, Anion Gap 11, BUN 12, Creatinine 1.03 H, Estim Creat Clear Calc 49.62, Est GFR (MDRD) Af Amer 69, Est GFR (MDRD) Non-Af 57 L, BUN/Creatinine Ratio 11.7, Glucose 217 H, Calcium 9.1, Total Bilirubin 1.40 H, AST 15, ALT 18, Alkaline Phosphatase 155 H, Total Protein 6.5, Albumin 2.1 L, Globulin 4.4 H, Albumin/Globulin Ratio 0.5 L 06/03/22 20:43: Lactic Acid 2.4 H* ABG Data ABG results: ABG 06/03/22 23:36 Specimen Type NAZANIN VBG pH 7.56 H VBG pO2 140 H VBG HCO3 24 VBG Total CO2 24 VBG O2 Sat (Calc) 100 H VBG Base Excess 1 POC Mix VBG pCO2 Pt Tmp 26.1 L O2 Delivery Device Room Air Assessment & Plan Assessment/Plan (1) Shortness of breath: PLAN: Plan #Bacteremia 2/ blood cultures from 06/02 + for GNR WBC elevated though lactic improved Has continued to have intermittent SOB but CT does not appear to show pneumonia Continue zosyn Cultures pending and sensitivities pending #Dyspnea Intermittently off and on for several months CT obtained 06/02 with mild bibasilar atelectasis and no PE Not presently hypoxic VBG with pH of 7.56 with adequate PO2 #DVT ppx: Leonor Perry MD Time spent in the patient's overall evaluation,decision-making process, review of diagnostic data, adjustment of management, discussion with other providers, nursing nursing and ancillary staff involved in patient's care documentation, 60 Minutes Charges/Coding Visit Charges Inpatient E&M: 14918 Init Hosp L2
[2022-06-04 01:46] LABS: Mucous, Urine 0 SEEN /hpf (<or=2+)
[2022-06-04 01:59] LABS: Color, Urine Yellow (Yellow); Glucose, Dipstick Normal (Normal); Ketone-Dipstick Negative (Negative); Leukocyte Esterase-Dipstick 500 /ul (Negative); Nitrite-Dipstick Negative (Negative); Occult Blood-Urine 150 /ul (Negative); Protein-Dipstick 100 mg/dl (Negative); Urine Bilirubin Dipstick Negative (Negative); Urine Clarity Clear (Clear); Urine Urobilinogen 1 mg/dl (Normal)
[2022-06-04 02:00] LABS: Lactic Acid 0.8 mmol/L (0.4-1.9)
[2022-06-04 02:05] LABS: Bacteria 1+ /hpf (None Seen); Red Blood Cells-Urine 5-10 SEEN /hpf (0-5); Squamous Epithelial Cells - UA 0-5 SEEN /hpf (5-10); Transitional Epithelial - Ur 0-5 SEEN /hpf (0-5); White Blood Cells 10-25 SEEN /hpf (0-5)
[2022-06-04 03:13] VITALS: BP 131/82; PULSE 85; RESP 18; TEMP 36.8; O2SAT 94
[2022-06-04] MEDS: 0.9% Saline Lock 10 ML Syringe IV (05:03)
[2022-06-04] MEDS: Acetaminophen 325 MG Tablet 650 MG PO ×2 (05:05→20:10)
[2022-06-04 05:37] LABS: Absolute Lymphocyte Count 2.36 X10^3/uL (0.83-4.51); Absolute Neutrophil Count 24.6 X10^3/uL (2.0-7.7); Basophil# 0.14 X10^3/uL; Basophil% 0.5 % (0-1); Eosinophil# 0.08 X10^3/uL; Eosinophils% 0.3 % (0-5); Hematocrit 32.9 % (37-47); Hemoglobin 10.4 g/dL (12.0-15.0); Lymphocyte # 2.36 X10^3/ul (0.83-4.51); Lymphocyte % 7.8 % (19-41); Mean Corp Hgb Conc 31.6 g/dL (32-36); Mean Corpuscular Hgb 29.5 pg (27.0-32.0); Mean Corpuscular Volume 93.2 fL (81-99); Mean Platelet Vol. 13.5 fl (6.2-12.0); Monocyte% 7.6 % (0-10); NRBC Flagged by Analyzer 0 % (0-5); Neutrophil # 24.63 X10^3/uL (2.7-7.7); Neutrophil % 81.2 % (47-70); POSITIVE COUNT YES; POSITIVE DIFFERENTIAL YES; Platelet Count 204 K/mm3 (150-450); RBC Distribution Width CV 16.1 % (11.6-14.6); RBC Distribution Width SD 54.8 fl (35.1-43.9); Red Blood Count 3.53 M/mm3 (4.2-5.4)
[2022-06-04 05:58] LABS: Differential Indicated SCAN CRITERIA MET; White Blood Count 30.3 K/mm3 (4.4-11.0)
[2022-06-04 06:10] LABS: ALB/GLOB Ratio 0.4 RATIO (0.9-2.4); AST(SGOT) 20 U/L (15-37); Alanine Aminotransfer ALT/SGPT 18 U/L (13-56); Albumin, Serum 1.8 g/dL (3.2-5.0); Alkaline Phosphatase 151 U/L (45-117); Anion Gap 9 (5-15); BUN 12 mg/dL (7-18); BUN/Creat Ratio 13.8 RATIO (10-20); Calcium,Total 8.8 mg/dL (8.5-10.1); Chloride 103 mmol/L (98-107); Creatinine, Serum 0.87 mg/dL (0.55-1.02); EST Glomerular Filtration Rate 69 mL/min (>60); Est Glom Filt Rate - Afr Amer 84 mL/min (>60); Estimated Creatinine Clearance 58.74 ml/min; Globulin 4.3 g/dL (2.2-4.2); Glucose 123 mg/dL (74-106); Potassium 3.4 mmol/L (3.5-5.1); Protein, Total 6.1 g/dL (6.4-8.2); Sodium Level 138 mmol/L (136-145)
[2022-06-04 06:29] LABS: Differential Comment SCANNED
[2022-06-04 07:56] VITALS: BP 131/74; PULSE 75; RESP 12; TEMP 36.8; O2SAT 96
[2022-06-04] MEDS: Enoxaparin 40 MG/0.4 ML Syringe SC (09:39)
[2022-06-04] MEDS: Aspirin 81 MG TAB.CHEW PO (09:39)
[2022-06-04] MEDS: traMADol 50 MG Tablet PO ×3 (09:43→23:20)
--- NOTE | 2022-06-04 10:00 | PCM.PN.HOSP ---
Reason for Visit Reason for Visit: Diagnoses Shortness of breath (06/03/22) Subjective Subjective Feels a little bit better today than when she came in Objective Data Objective Data Vital Signs: Vital Signs Temp Pulse Resp BP Pulse Ox O2 Del Method 98.2 F 75 12 131/74 H 96 Room Air 06/04/22 07:56 06/04/22 07:56 06/04/22 07:56 06/04/22 07:56 06/04/22 07:56 06/04/22 09:50 Oxygen Delivery Method Room Air Weight: 222 lb 7.143 oz Body Mass Index (BMI) 36.1 Intake & Output: Intake and Output for Last 24 Hours 06/03/22 06/04/22 06/05/22 03:59 03:59 03:59 Intake Total 1100 / 1100 50 / 50 Balance 1100 / 1100 50 / 50 Lab / Micro Data Result Diagrams: 06/04/22 05:12 06/04/22 05:12 Labs: Laboratory Results - last 24 hr 06/03/22 20:43: WBC 35.5 H*, RBC 3.83 L, Hgb 11.2 L, Hct 34.3 L, MCV 89.6, MCH 29.2, MCHC 32.7, RDW Std Deviation 52.6 H, RDW Coeff of Kaiser 15.9 H, Plt Count 215, MPV 13.6 H, Immature Gran % (Auto) 2.400 H, Neut % (Auto) 86.8 H, Lymph % (Auto) 4.5 L, [place] % (Auto) 5.8, Eos % (Auto) 0.1, Baso % (Auto) 0.4, Absolute Neuts (auto) 30.8 H, Absolute Lymphs (auto) 1.60, Nucleated RBC % 0, Differential Comment SCANNED, Diff Path Review August foll 06/03/22 20:43: PT 16.2 H, INR 1.3, APTT 32.2 06/03/22 20:43: Sodium 134 L, Potassium 2.8 L, Chloride 99, Carbon Dioxide 24.0, Anion Gap 11, BUN 12, Creatinine 1.03 H, Estim Creat Clear Calc 49.62, Est GFR (MDRD) Af Amer 69, Est GFR (MDRD) Non-Af 57 L, BUN/Creatinine Ratio 11.7, Glucose 217 H, Calcium 9.1, Total Bilirubin 1.40 H, AST 15, ALT 18, Alkaline Phosphatase 155 H, Total Protein 6.5, Albumin 2.1 L, Globulin 4.4 H, Albumin/Globulin Ratio 0.5 L 06/03/22 20:43: Lactic Acid 2.4 H* 06/04/22 01:30: Lactic Acid 0.8 06/04/22 01:40: Urine Color Yellow, Urine Clarity Clear, Urine pH 6.0, Ur Specific [place] 1.010, Urine Protein 100 H, Urine Glucose (UA) Normal, Urine Ketones Negative, Urine Occult Blood 150 H, Urine Nitrite Negative, Urine Bilirubin Negative, Urine Urobilinogen 1 H, Ur Leukocyte Esterase 500 H, Urine RBC 5-10 SEEN, Urine WBC 10-25 SEEN, Ur Squamous Epith Cells 0-5 SEEN, Ur Transition Epith Cell 0-5 SEEN, Urine Bacteria 1+, Urine Mucus 0 SEEN 06/04/22 05:12: WBC 30.3 H*, RBC 3.53 L, Hgb 10.4 L, Hct 32.9 L, MCV 93.2, MCH 29.5, MCHC 31.6 L, RDW Std Deviation 54.8 H, RDW Coeff of Kaiser 16.1 H, Plt Count 204, MPV 13.5 H, Immature Gran % (Auto) 2.600 H, Neut % (Auto) 81.2 H, Lymph % (Auto) 7.8 L, [place] % (Auto) 7.6, Eos % (Auto) 0.3, Baso % (Auto) 0.5, Absolute Neuts (auto) 24.6 H, Absolute Lymphs (auto) 2.36, Nucleated RBC % 0, Differential Comment SCANNED, Diff Path Review August06/04/22 05:12: Sodium 138, Potassium 3.4 L, Chloride 103, Carbon Dioxide 26.0, Anion Gap 9, BUN 12, Creatinine 0.87, Estim Creat Clear Calc 58.74, Est GFR (MDRD) Af Amer 84, Est GFR (MDRD) Non-Af 69, BUN/Creatinine Ratio 13.8, Glucose 123 H, Calcium 8.8, Total Bilirubin 1.10 H, AST 20, ALT 18, Alkaline Phosphatase 151 H, Total Protein 6.1 L, Albumin 1.8 L, Globulin 4.3 H, Albumin/Globulin Ratio 0.4 L ABG Data ABG results: ABG 06/03/22 23:36 Specimen Type NAZANIN VBG pH 7.56 H VBG pO2 140 H VBG HCO3 24 VBG Total CO2 24 VBG O2 Sat (Calc) 100 H VBG Base Excess 1 POC Mix VBG pCO2 Pt Tmp 26.1 L O2 Delivery Device Room Air Physical Exam Narrative General: Alert, Oriented x3, Cooperative, No apparent distress HEENT: Atraumatic, PERRLA, EOMI, Normocephalic Oral: Moist Mucosa Neck: Supple, No JVD Lungs: Diminished, Normal air movement, No rhonchi, No wheeze, No rales Cardiovascular: Regular rate, Regular Rhythm, Normal S1, Normal S2, No murmurs Abdomen: Soft, Non Tender, Non-Distended, No Hepato-splenomegaly Extremities: No edema, Capillary Refill Less than 3 Seconds Skin: No rashes, No breakdown Musculoskeletal: No Tenderness to Palpation of Joints or Extremities Neurological: Cranial nerves II-XII grossly intact, Motor Exam 5/5 strength throughout, Sensory exam intact to light touch and pain Psych/Mental Status: Normal Affect, Appropriate Assessment & Plan Assessment/Plan (1) Shortness of breath: PLAN: Plan 1. Gram-negative phan bacteremia of unknown source/dyspnea ? She was discharged on Levaquin but was called back because of gram-negative rods in her blood ? White blood cell count is still elevated and there is no clear source, she denies any trauma or any skin wounds that she can see ? CT scans of her chest abdomen and pelvis do not indicate a source for her infection ? No murmur on exam ? Will await sensitivities and speciation. She states that she did have a UTI several weeks ago but that was treated with 10 days of antibiotics DVT: Lovenox
--- NOTE | 2022-06-04 11:30 | CASEMGMT ---
RN CM Face to Face with patient for initial transition planning/care coordination assessment. RN CM introduced self and role at [facility]. Patient lying in bed, alert and oriented. Patient willing to participate in assessment and is able to answer all questions appropriately. Care providers, pharmacy, and demographics verified. Patient wishes to discharge home, denies need for home health at this time. Will monitor for IV ATBs at discharge. Patient states she has no further needs or concerns at this time. CM to follow for discharge planning needs that may arise. PCP: Bryan Specialists: ajit Ritchie Preferred [facility] [place] Prescription Benefit: yes Living Will/HPOA: yes, son Vinicio Oliver LNOK: sons Living Arrangements: Patient lives with son in 2 story home with bed and bath on first floor. 4 steps and railing to enter the home. Patient is independent at home. Transportation: self, son DME/HHC: Patient states she has shower chair, cane, and walker at home. Patient denies previous HHC or SNF. Disposition Plan: Patient to discharge home with family support and follow-up plans in place. Will monitor ATBs for at discharge. Jennifer HWANG, RN, CM
[2022-06-04 12:53] LABS: Pathologist Review Reviewed
[2022-06-04 12:54] LABS: Pathologist Review Reviewed
[2022-06-04 13:39] VITALS: BP 142/71; PULSE 73; RESP 13; TEMP 36.9; O2SAT 97
[2022-06-04 15:15] VITALS: BP 142/82; PULSE 78; RESP 14; TEMP 36.8; O2SAT 98
[2022-06-04] MEDS: Ondansetron 4 MG/2 ML Vial IV (17:07)
[2022-06-04 19:04] VITALS: PULSE 91
[2022-06-04 21:48] VITALS: BP 144/68; PULSE 80; RESP 16; TEMP 36.7; O2SAT 98
[2022-06-04] MEDS: Benzonatate 100 MG Capsule PO (23:20)
[2022-06-05] VITALS (8 sets, daily range): BP systolic 99–148; BP diastolic 71–87; PULSE 75–89; RESP 16–20; TEMP 36.6–37.6; O2SAT 94–97
[2022-06-05] MEDS: Benzonatate 100 MG Capsule PO ×2 (05:35→13:40)
[2022-06-05] MEDS: traMADol 50 MG Tablet PO ×3 (05:35→19:59)
[2022-06-05] MEDS: Ondansetron 4 MG/2 ML Vial IV ×3 (05:41→22:37)
[2022-06-05 06:32] LABS: Absolute Lymphocyte Count 2.31 X10^3/uL (0.83-4.51); Absolute Neutrophil Count 14.9 X10^3/uL (2.0-7.7); Basophil# 0.05 X10^3/uL; Basophil% 0.2 % (0-1); Eosinophil# 0.34 X10^3/uL; Eosinophils% 1.7 % (0-5); Hematocrit 34.6 % (37-47); Hemoglobin 11.1 g/dL (12.0-15.0); Lymphocyte # 2.31 X10^3/ul (0.83-4.51); Lymphocyte % 11.4 % (19-41); Mean Corp Hgb Conc 32.1 g/dL (32-36); Mean Corpuscular Hgb 29.5 pg (27.0-32.0); Mean Platelet Vol. 13.3 fl (6.2-12.0); Monocyte# 1.68 X10^3/uL; Monocyte% 8.3 % (0-10); NRBC Flagged by Analyzer 0 % (0-5); Neutrophil # 14.88 X10^3/uL (2.7-7.7); Neutrophil % 73.7 % (47-70); POSITIVE DIFFERENTIAL YES; POSITIVE MORPHOLOGY YES; Platelet Count 231 K/mm3 (150-450); RBC Distribution Width CV 16.3 % (11.6-14.6); RBC Distribution Width SD 54.8 fl (35.1-43.9); Red Blood Count 3.76 M/mm3 (4.2-5.4); White Blood Count 20.2 K/mm3 (4.4-11.0)
[2022-06-05 06:43] LABS: Differential Indicated SCAN CRITERIA MET
[2022-06-05 06:57] LABS: Differential Comment SCANNED
[2022-06-05 06:58] LABS: Anion Gap 10 (5-15); BUN 10 mg/dL (7-18); BUN/Creat Ratio 13.9 RATIO (10-20); Calcium,Total 8.8 mg/dL (8.5-10.1); Chloride 104 mmol/L (98-107); Creatinine, Serum 0.72 mg/dL (0.55-1.02); EST Glomerular Filtration Rate 86 mL/min (>60); Est Glom Filt Rate - Afr Amer 104 mL/min (>60); Estimated Creatinine Clearance 51.11 ml/min; Glucose 124 mg/dL (74-106); Potassium 2.9 mmol/L (3.5-5.1); Sodium Level 140 mmol/L (136-145)
--- NOTE | 2022-06-05 09:37 | PCM.PN.HOSP ---
Reason for Visit Reason for Visit: Diagnoses Shortness of breath (06/03/22) Subjective Subjective Continues to have some fatigue as well as some nausea and vomiting Objective Data Objective Data Vital Signs: Vital Signs Temp Pulse Resp BP Pulse Ox O2 Del Method 98.9 F 79 16 99/72 97 Room Air 06/05/22 03:11 06/05/22 03:11 06/05/22 03:11 06/05/22 03:11 06/05/22 03:11 06/05/22 04:05 Oxygen Delivery Method Room Air Weight: 224 lb 6.889 oz Body Mass Index (BMI) 36.1 Intake & Output: Intake and Output for Last 24 Hours 06/04/22 06/05/22 06/06/22 03:59 03:59 03:59 Intake Total 1100 / 1100 1470 / 1470 400 / 400 Balance 1100 / 1100 1470 / 1470 400 / 400 Lab / Micro Data Result Diagrams: 06/05/22 05:54 06/05/22 05:54 Labs: Laboratory Results - last 24 hr 06/03/22 20:43: Diff Path Review Reviewed 06/04/22 05:12: Diff Path Review Reviewed 06/05/22 05:54: WBC 20.2 H, RBC 3.76 L, Hgb 11.1 L, Hct 34.6 L, MCV 92.0, MCH 29.5, MCHC 32.1, RDW Std Deviation 54.8 H, RDW Coeff of Kaiser 16.3 H, Plt Count 231, MPV 13.3 H, Immature Gran % (Auto) 4.700 H, Neut % (Auto) 73.7 H, Lymph % (Auto) 11.4 L, [place] % (Auto) 8.3, Eos % (Auto) 1.7, Baso % (Auto) 0.2, Absolute Neuts (auto) 14.9 H, Absolute Lymphs (auto) 2.31, Nucleated RBC % 0, Differential Comment SCANNED, Diff Path Review August06/05/22 05:54: Sodium 140, Potassium 2.9 L, Chloride 104, Carbon Dioxide 26.0, Anion Gap 10, BUN 10, Creatinine 0.72, Estim Creat Clear Calc 51.11, Est GFR (MDRD) Af Amer 104, Est GFR (MDRD) Non-Af 86, BUN/Creatinine Ratio 13.9, Glucose 124 H, Calcium 8.8 Physical Exam Narrative General: Alert, Oriented x3, Cooperative, No apparent distress HEENT: Atraumatic, PERRLA, EOMI, Normocephalic Oral: Moist Mucosa Neck: Supple, No JVD Lungs: Diminished, Normal air movement, No rhonchi, No wheeze, No rales Cardiovascular: Regular rate, Regular Rhythm, Normal S1, Normal S2, No murmurs Abdomen: Soft, Non Tender, Non-Distended, No Hepato-splenomegaly Extremities: No edema, Capillary Refill Less than 3 Seconds Skin: No rashes, No breakdown Musculoskeletal: No Tenderness to Palpation of Joints or Extremities Neurological: Cranial nerves II-XII grossly intact, Motor Exam 5/5 strength throughout, Sensory exam intact to light touch and pain Psych/Mental Status: Normal Affect, Appropriate Assessment & Plan Assessment/Plan (1) Shortness of breath: PLAN: Plan 1. E. coli bacteremia of unknown source/dyspnea ? She was discharged on Levaquin but was called back because of gram-negative rods in her blood ? Is elevated but has had significant improvement ? CT scans of her chest abdomen and pelvis do not indicate a source for her infection, there is some concern on CT scan about changes in her renal parenchyma however renal ultrasound was unremarkable ? No murmur on exam ? Will await sensitivities and speciation. She states that she did have a UTI several weeks ago but that was treated with 10 days of antibiotics DVT: Leonor Charges/Coding Visit Charges Inpatient E&M: 91058 Subs Hosp L2
[2022-06-05] MEDS: Enoxaparin 40 MG/0.4 ML Syringe SC (09:47)
[2022-06-05] MEDS: Aspirin 81 MG TAB.CHEW PO (09:47)
[2022-06-05] MEDS: Acetaminophen 325 MG Tablet 650 MG PO ×2 (09:47→22:30)
[2022-06-05 10:04] LABS: Magnesium 2.1 mg/dL (1.6-2.6); Phosphorus 3.1 mg/dL (2.5-4.9)
[2022-06-05] MEDS: Potassium Chloride Oral Tablet 20 MEQ 60 MEQ PO (13:05)
[2022-06-05] MEDS: oxyCODONE 5 MG Tablet PO ×2 (13:05→22:30)
[2022-06-05] MEDS: MELATONIN 3 MG TABLET PO (22:29)
[2022-06-05] MEDS: Gabapentin 400 MG Capsule PO (22:30)
[2022-06-05] MEDS: 0.9% Saline Lock 10 ML Syringe IV (22:37)
[2022-06-06] VITALS (7 sets, daily range): BP systolic 126–152; BP diastolic 62–120; PULSE 70–89; RESP 16–18; TEMP 36.5–36.8; O2SAT 92–97
[2022-06-06] MEDS: Benzonatate 100 MG Capsule PO ×2 (05:38→13:40)
[2022-06-06] MEDS: oxyCODONE 5 MG Tablet PO ×3 (05:38→21:59)
[2022-06-06 06:07] LABS: Hematocrit 35.6 % (37-47); Hemoglobin 11.1 g/dL (12.0-15.0); Mean Corp Hgb Conc 31.2 g/dL (32-36); Mean Corpuscular Hgb 29.1 pg (27.0-32.0); Mean Corpuscular Volume 93.4 fL (81-99); Mean Platelet Vol. 12.7 fl (6.2-12.0); POSITIVE COUNT YES; POSITIVE MORPHOLOGY YES; Platelet Count 314 K/mm3 (150-450); RBC Distribution Width CV 16.6 % (11.6-14.6); Red Blood Count 3.81 M/mm3 (4.2-5.4); White Blood Count 15.2 K/mm3 (4.4-11.0)
[2022-06-06 06:08] LABS: Differential Indicated MANUAL DIFF
[2022-06-06 06:36] LABS: Anion Gap 7 (5-15); BUN 6 mg/dL (7-18); Calcium,Total 8.6 mg/dL (8.5-10.1); Chloride 105 mmol/L (98-107); Creatinine, Serum 0.86 mg/dL (0.55-1.02); EST Glomerular Filtration Rate 70 mL/min (>60); Est Glom Filt Rate - Afr Amer 85 mL/min (>60); Estimated Creatinine Clearance 59.42 ml/min; Glucose 102 mg/dL (74-106); Sodium Level 140 mmol/L (136-145)
[2022-06-06 06:48] LABS: Eosinophil 4 % (0-5); Lymphocyte 17 % (19-41); Metamyelocyte 1 % (0-1); Monocyte 7 % (0-10); Myelocyte 1 % (0-0); Neutrophil-Band 1 % (0-5); Neutrophil-Segmented 69 % (47-70); Platelet Estimate ADEQUATE (ADEQ); Total Cells Counted 100 (MANUAL DIFF)
[2022-06-06 06:49] LABS: Absolute Lymphocyte Count 2.58 X10^3/uL (0.83-4.51); Absolute Neutrophil Count 10.6 X10^3/uL (2.0-7.7); Lymphocyte # 2.58 X10^3/ul (0.83-4.51); Neutrophil # 10.63 X10^3/uL (2.7-7.7); Red Cell Morphology NORM C+C NORMAL (NORM C&C)
[2022-06-06] MEDS: Potassium Chloride Oral Tablet 20 MEQ 60 MEQ PO (09:31)
[2022-06-06] MEDS: traMADol 50 MG Tablet PO ×3 (09:31→23:05)
[2022-06-06] MEDS: Gabapentin 400 MG Capsule PO ×2 (09:31→21:59)
[2022-06-06] MEDS: Enoxaparin 40 MG/0.4 ML Syringe SC (09:32)
[2022-06-06] MEDS: Aspirin 81 MG TAB.CHEW PO (09:32)
[2022-06-06] MEDS: Ondansetron 4 MG/2 ML Vial IV ×2 (09:35→17:44)
[2022-06-06] MEDS: 0.9% Saline Lock 10 ML Syringe IV ×5 (09:36→21:58)
[2022-06-06 09:47] LABS: Pathologist Review Reviewed
[2022-06-06 12:44] LABS: Pathologist Review Reviewed
--- NOTE | 2022-06-06 13:53 | MRI_ITS ---
STUDY: MRI LUMBAR SPINE WITHOUT CONTRAST REASON FOR EXAM: Female, 66 years old. Bacteremia with back pain TECHNIQUE: MRI examination of the lumbar spine obtained with standard protocol including multiplanar multiecho noncontrast imaging. Contrast: No contrast administered. COMPARISON: None FINDINGS: Vertebral bodies and alignment. 1. Vertebral body height is maintained throughout the lumbar spine although a multilevel disc and endplate changes are throughout the lumbar spine. 2. Modic type II changes are present at the T12-L1 level as well as L3-L4 and L5-S1. 3. There is loss vertebral body height at the T11 level with deformity of the inferior endplate, Modic type I changes are present along the endplates at the T11-12 level. Broad-based posterior osteophyte and chronic disc protrusion are present at this level with deformity of the anterior epidural space and canal stenosis. 4. No destructive bony process. No acute fractures noted. 5. Paraspinous soft tissue planes have normal appearance. Normal appearance of the muscular fascial planes of the erector spinae. 6. Normal appearance of the sacrum and sacroiliac joints. Intervertebral disks levels. T11-12: Marked degenerative change involving the endplates with endplate edema, degenerative disc changes, and a broad-based posterior chronic appearing disc protrusion and osteophyte complex. There is deformity of the anterior epidural space, cord contact and central canal stenosis to approximately 6 mm. No acute cord compression however there is deformity of the cord. No evidence of paraspinal fluid collection or abscess. No epidural abscess. T12-L1: Modic type II changes, broad-based posterior disc bulge and osteophyte complex with deformity of the anterior pleural space, central canal is narrowed to 7 mm. Cord contact without acute cord compression. L1-2: Disc desiccation, broad-based posterior disc bulge, no central canal stenosis however there is narrowing of lateral recesses and neural foramina greater on LEFT than RIGHT due to disc bulge and facet and ligamentum flavum hypertrophic changes. Crowding of nerve roots in the lateral recesses noted without bethany nerve root impingement. L2-3: Disc desiccation, broad-based chronic appearing disc bulge/protrusion and osteophyte complex, there is deformity the intervertebral space, central thecal sac is narrowed to approximately 7 to 8 mm. Facet and ligamentum flavum hypertrophic changes also present contributing to lateral recess narrowing greater on the LEFT than RIGHT with crowding of nerve roots. No bethany nerve root impingement. Neural foramina are widely patent. L3-4: Significant disc desiccation, Modic type II endplate changes, broad-based disc bulge/protrusion and osteophyte complex with moderate asymmetry greater on the LEFT than RIGHT. Central canal is narrowed for proximally 6 to 7 mm with narrowing of lateral recesses contributed by facet and ligamentum flavum hypertrophic changes. There is significant narrowing of the LEFT neural foramen with findings consistent with displacement and impingement of the emerging LEFT L3 nerve root. L4-5: Disc desiccation, broad-based posterior disc bulge and osteophyte complex. No central canal stenosis however there is mild grade 1 anterolisthesis of L4 and L5, and extruded disc material projects superiorly on the RIGHT behind the L4 vertebral body. No central canal stenosis, however there is compromise of the lateral recesses bilaterally greater on the RIGHT than LEFT with potential RIGHT L4 and L5 nerve root impingement. L5-S1: Disc space narrowing, endplate sclerosis, and broad-based disc protrusion and osteophyte complex. Deformity of the anterior pleural space without central canal stenosis. There is however narrowing of lateral recesses bilaterally greater on the RIGHT than LEFT. Neural foramina are widely patent. Spinal cord: Spinal cord is normal configuration however is contacted and displaced with mild deformity at the T11-12 level. No cord edema. No intramedullary signal abnormality. No syrinx noted. Conus is located at L1. Cauda equina has normal appearance. Normal visualized paraspinous soft tissue structures. MRI/Spine Lumbar W/WO Contrast IMPRESSION: 1. Extensive multilevel lumbar spondylosis, multilevel disc bulge/protrusion and osteophyte complexes. Multilevel canal narrowing is present. 2. Mild vertebral body loss at the T11 level with deformity of the inferior endplate, discogenic endplate changes and a broad-based posterior disc protrusion and osteophyte complex at this level contribute to canal stenosis, there is cord contact and cord displacement. Mild cord deformity without evidence of acute cord edema. 3. Significant multilevel disc changes as detailed, most significant is eccentric bulge/protrusion and osteophyte complex at L3-4 with compromise of the LEFT neural foramen and likely impingement of the LEFT L3 nerve root. 4. Additional degenerative disc change and extruded disc material at the L4-5 level projecting superiorly in the epidural space, compromise of the RIGHT lateral recess with potential RIGHT L4 and L5 nerve root impingement without canal stenosis. 5. No evidence of paraspinal fluid collections or abscess. No epidural abscess noted. No evidence of discitis or osteomyelitis. Electronically Signed: Vincenzo Ochoa MD at 20:44 EST ,
--- NOTE | 2022-06-06 14:13 | PCM.CONS.GEN ---
Assessment & Plan Assessment/Plan (1) Bacteremia: PLAN: Suspected source pyelonephritis. Will narrow zosyn to cefazolin. Given lower back pain and h/o trigger point injections, I think MRI is reasonable. Plan for discharge will be 10 days po keflex 500mg tid. Will follow, thank you, d/w Dr. Cruz HPI Consult Data Date of Consult: 06/06/22 HPI Narrative Reason for Consultation: bacteremia HPI Narrative: PAUL MEHTA, is a 66 F with h/o RA, chronic back pain, presented with about 2 weeks of fever, cough, lower back pain. Had uti with ecoli 2 months ago. Gets trigger point injections into her back. Came to [facility] called [facility] due to (+) bcx. Now feeling better today. Fever improved. No dysuria. No cough or sputum. Full ROS performed and neg except as noted above. [facility] Medical History Chronic back pain Rheumatoid arthritis Uncomplicated opioid dependence Home Medications aspirin 81 mg chewable tablet 81 mg PO DAILY HEALTH MAINTENANCE 05/30/19 [History Last Taken 06/01/22] fexofenadine 180 mg tablet (Fozia Allergy) 180 mg PO DAILY PRN SEASONAL ALLERGIES 05/15/20 [History Last Taken Unknown] gabapentin 400 mg capsule 400 mg PO BID back pain #180 caps 02/24/22 [Rx Last Taken 1 Month Ago ~05/02/22] ibuprofen 800 mg tablet 800 mg PO TID PRN pain #270 tabs 02/24/22 [Rx Last Taken 06/01/22] handicap placard #1 ea 05/08/22 [Rx Last Taken Unknown] Vicks DayQuil 30 ml PO/SL Q4H PRN Cold Symptoms 06/02/22 [History Last Taken 05/31/22] levofloxacin 750 mg tablet 750 mg PO DAILY #2 tabs 06/02/22 [Rx Last Taken Unknown] potassium chloride 20 mEq tablet,extended release (K-Tab) 20 meq PO BID #10 tabs 06/02/22 [Rx Last Taken Unknown] promethazine 25 mg tablet 25 mg PO Q6H PRN PRN Nausea #12 TABLETS 06/02/22 [Rx Last Taken Unknown] tramadol 50 mg tablet 50 mg PO Q6H PRN pain 3 days #12 tabs 06/02/22 [Rx Last Taken Unknown] Allergy/AdvReac Type Severity Reaction Status Date / Time No Known Allergies Allergy Verified 06/02/22 08:20 Family History Mother Diabetes Father Heart disease Cancer Surgical History History of back surgery History of bilateral knee replacement History of carpal tunnel release History of tonsillectomy History of tubal ligation Social History Smoking Status: Never smoker alcohol intake: never substance use type: does not use what type of physical activity do you participate in: other details: stretches frequency: daily Physical Exam Const alert, oriented x3 and no apparent distress General Appearance: cooperative and well developed HEENT normocephalic and head/scalp atraumatic Eyes PERRL and EOMs intact bilaterally Neck supple and No nodes Resp normal air movement and clear to auscultation bilaterally Cardio regular rate and regular rhythm GI soft to palpation, non-tender and non-distended Extremity Extremity Narrative: R flank and lumbar spine tenderness General Extremity: edema Skin no rashes or lesions noted Neuro CN's II-XII intact bilaterally Lab / Micro Data Attestation: I reviewed the patient's lab results. Result Diagrams: 06/06/22 05:49 06/06/22 05:49 Labs: Laboratory Results - last 24 hr 06/05/22 05:54: Diff Path Review Reviewed 06/06/22 05:49: WBC 15.2 H, RBC 3.81 L, Hgb 11.1 L, Hct 35.6 L, MCV 93.4, MCH 29.1, MCHC 31.2 L, RDW Std Deviation 56.0 H, RDW Coeff of Kaiser 16.6 H, Plt Count 314, MPV 12.7 H, Neut % (Auto) Not Reportable, Absolute Neuts (auto) 10.6 H, Absolute Lymphs (auto) 2.58, Total Counted 100, Neutrophils % (Manual) 69, Band Neutrophils % 1, Lymphocytes % (Manual) 17 L, Monocytes % (Manual) 7, Eosinophils % (Manual) 4, Metamyelocytes % 1, Myelocytes % 1 H, Diff Path Review Reviewed, Platelet Estimate ADEQUATE, RBC Morphology NORM C+C 06/06/22 05:49: Sodium 140, Potassium 3.0 L, Chloride 105, Carbon Dioxide 28.0, Anion Gap 7, BUN 6 L, Creatinine 0.86, Estim Creat Clear Calc 59.42, Est GFR (MDRD) Af Amer 85, Est GFR (MDRD) Non-Af 70, BUN/Creatinine Ratio 7.0 L, Glucose 102, Calcium 8.6 Micro: Microbiology 06/03/22 21:10 Blood Culture (Wb) - Left Hand Blood Culture - Preliminary No growth in 48 hours. 06/03/22 20:43 Blood Culture (Wb) - Anticubital Left Blood Culture - Preliminary No growth in 48 hours. 06/04/22 01:40 Urine, Clean Catch Urine Culture - Final Culture exhibits no growth.
[2022-06-06] MEDS: Cefazolin 2 GM in 0.9% Normal Saline 100 ML IV ×2 (14:16→21:58)
--- NOTE | 2022-06-06 14:44 | PCM.PN.HOSP ---
Subjective Subjective Doing well, no issues overnight. Feeling better today. White count is down to 15,000. Objective Data Objective Data Vital Signs: Vital Signs Temp Pulse Resp BP Pulse Ox O2 Del Method 97.7 F L 88 18 142/73 H 97 Room Air 06/06/22 09:25 06/06/22 09:25 06/06/22 09:25 06/06/22 09:25 06/06/22 09:25 06/06/22 09:25 Oxygen Delivery Method Room Air Weight: 222 lb 7.143 oz Body Mass Index (BMI) 36.1 Intake & Output: Intake and Output for Last 24 Hours 06/05/22 06/06/22 06/07/22 03:59 03:59 03:59 Intake Total 1470 / 1470 1440 / 1440 1000 / 1000 Balance 1470 / 1470 1440 / 1440 1000 / 1000 Lab / Micro Data Result Diagrams: 06/06/22 05:49 06/06/22 05:49 Labs: Laboratory Results - last 24 hr 06/05/22 05:54: Diff Path Review Reviewed 06/06/22 05:49: WBC 15.2 H, RBC 3.81 L, Hgb 11.1 L, Hct 35.6 L, MCV 93.4, MCH 29.1, MCHC 31.2 L, RDW Std Deviation 56.0 H, RDW Coeff of Kaiser 16.6 H, Plt Count 314, MPV 12.7 H, Neut % (Auto) Not Reportable, Absolute Neuts (auto) 10.6 H, Absolute Lymphs (auto) 2.58, Total Counted 100, Neutrophils % (Manual) 69, Band Neutrophils % 1, Lymphocytes % (Manual) 17 L, Monocytes % (Manual) 7, Eosinophils % (Manual) 4, Metamyelocytes % 1, Myelocytes % 1 H, Diff Path Review Reviewed, Platelet Estimate ADEQUATE, RBC Morphology NORM C+C 06/06/22 05:49: Sodium 140, Potassium 3.0 L, Chloride 105, Carbon Dioxide 28.0, Anion Gap 7, BUN 6 L, Creatinine 0.86, Estim Creat Clear Calc 59.42, Est GFR (MDRD) Af Amer 85, Est GFR (MDRD) Non-Af 70, BUN/Creatinine Ratio 7.0 L, Glucose 102, Calcium 8.6 Micro: Microbiology 06/03/22 21:10 Blood Culture (Wb) - Left Hand Blood Culture - Preliminary No growth in 48 hours. 06/03/22 20:43 Blood Culture (Wb) - Anticubital Left Blood Culture - Preliminary No growth in 48 hours. 06/04/22 01:40 Urine, Clean Catch Urine Culture - Final Culture exhibits no growth. Physical Exam Narrative General: Alert, Oriented x3, Cooperative, No apparent distress HEENT: Atraumatic, PERRLA, EOMI, Normocephalic Oral: Moist Mucosa Neck: Supple, No JVD Lungs: Diminished, Normal air movement, No rhonchi, No wheeze, No rales Cardiovascular: Regular rate, Regular Rhythm, Normal S1, Normal S2, No murmurs Abdomen: Soft, Non Tender, Non-Distended, No Hepato-splenomegaly Extremities: No edema, Capillary Refill Less than 3 Seconds Skin: No rashes, No breakdown Musculoskeletal: No Tenderness to Palpation of Joints or Extremities, she does have some moderate tenderness to her midline spine and her lumbar region Neurological: Cranial nerves II-XII grossly intact, Motor Exam 5/5 strength throughout, Sensory exam intact to light touch and pain Psych/Mental Status: Normal Affect, Appropriate Assessment & Plan Assessment/Plan (1) Shortness of breath: PLAN: Plan 1. E. coli bacteremia of unknown source/dyspnea ? She was discharged on Levaquin but was called back because of gram-negative rods in her blood ? Is elevated but has had significant improvement ? CT scans of her chest abdomen and pelvis do not indicate a source for her infection, there is some concern on CT scan about changes in her renal parenchyma however renal ultrasound was unremarkable ? No murmur on exam ? Urine culture is negative ?We will obtain an MRI of her lumbar spine to rule out any seeded area if negative can likely proceed with discharge tomorrow DVT: Lovenox Charges/Coding Visit Charges Inpatient E&M: 92015 Subs Hosp L2
[2022-06-06] MEDS: Acetaminophen 325 MG Tablet 650 MG PO (23:06)
[2022-06-07 03:55] VITALS: BP 115/88; PULSE 75; RESP 18; TEMP 36.6; O2SAT 95
[2022-06-07 03:56] VITALS: BP 115/88; PULSE 75; RESP 18; TEMP 36.6; O2SAT 95
[2022-06-07 05:15] LABS: Hematocrit 34.8 % (37-47); Hemoglobin 10.9 g/dL (12.0-15.0); Mean Corp Hgb Conc 31.3 g/dL (32-36); Mean Corpuscular Hgb 28.9 pg (27.0-32.0); Mean Corpuscular Volume 92.3 fL (81-99); Mean Platelet Vol. 12.4 fl (6.2-12.0); POSITIVE COUNT YES; POSITIVE DIFFERENTIAL YES; POSITIVE MORPHOLOGY YES; Platelet Count 316 K/mm3 (150-450); RBC Distribution Width CV 16.4 % (11.6-14.6); RBC Distribution Width SD 55.5 fl (35.1-43.9); Red Blood Count 3.77 M/mm3 (4.2-5.4); White Blood Count 15.8 K/mm3 (4.4-11.0)
[2022-06-07 05:25] LABS: Differential Indicated MANUAL DIFF
[2022-06-07] MEDS: Cefazolin 2 GM in 0.9% Normal Saline 100 ML IV (05:40)
[2022-06-07] MEDS: oxyCODONE 5 MG Tablet PO ×2 (05:40→12:36)
[2022-06-07 05:51] LABS: Anion Gap 9 (5-15); BUN 6 mg/dL (7-18); BUN/Creat Ratio 9.2 RATIO (10-20); Calcium,Total 8.5 mg/dL (8.5-10.1); Chloride 105 mmol/L (98-107); Creatinine, Serum 0.65 mg/dL (0.55-1.02); EST Glomerular Filtration Rate 96 mL/min (>60); Est Glom Filt Rate - Afr Amer 116 mL/min (>60); Estimated Creatinine Clearance 51.11 ml/min; Glucose 104 mg/dL (74-106); Potassium 3.1 mmol/L (3.5-5.1); Sodium Level 138 mmol/L (136-145)
[2022-06-07 06:39] LABS: Basophil 1 % (0-1); Eosinophil 3 % (0-5); Lymphocyte 25 % (19-41); Metamyelocyte 1 % (0-1); Monocyte 11 % (0-10); Myelocyte 2 % (0-0); Neutrophil-Segmented 57 % (47-70); Total Cells Counted 100 (MANUAL DIFF)
[2022-06-07 06:40] LABS: Absolute Lymphocyte Count 3.94 X10^3/uL (0.83-4.51); Lymphocyte # 3.94 X10^3/ul (0.83-4.51); Neutrophil # 8.99 X10^3/uL (2.7-7.7); Platelet Estimate ADEQUATE (ADEQ); Red Cell Morphology NORM C+C NORMAL (NORM C&C)
[2022-06-07] MEDS: Acetaminophen 325 MG Tablet 650 MG PO (09:05)
[2022-06-07] MEDS: Gabapentin 400 MG Capsule PO (09:05)
[2022-06-07] MEDS: Aspirin 81 MG TAB.CHEW PO (09:05)
[2022-06-07] MEDS: Enoxaparin 40 MG/0.4 ML Syringe SC (09:05)
[2022-06-07] MEDS: traMADol 50 MG Tablet PO (09:06)
[2022-06-07] MEDS: Potassium Chloride Oral Tablet 20 MEQ 60 MEQ PO (09:13)
[2022-06-07 09:55] VITALS: BP 169/70; PULSE 92; RESP 18; TEMP 36.6; O2SAT 96
[2022-06-07 11:00] VITALS: BP 169/70; PULSE 92; RESP 18; TEMP 36.6; O2SAT 96
--- NOTE | 2022-06-07 11:57 | DCINST_ITS ---
Discharge Instructions Diet Discharge Diet: No restrictions Activity Discharge Activity: Return to Normal Activity Dressing / Incision Call your doctor if you observe: Fever of 101 or Higher, Shortness of breath, Dizziness, Fainting spells, Swelling in the ankles, Chest pain and Increased palpitations (irregular heartbeat) Follow Up Care Test Results: Test results from this visit will be discussed in further detail at your follow- up appointment, if applicable. Discharge Plan Admission Admit Date/Time: 06/03/22 22:02 Attending Provider: Wilson Cruz Primary Care Provider: John Adams Consulting Providers: Esther Perry ; Mike Gates Additional Instructions / Restrictions: Follow-up with your PCP in 3 to 5 days to obtain outpatient lab work to monitor your potassium. Discharge Orders/Prescriptions Prescriptions: New cephalexin 500 mg capsule 500 mg PO TID 10 Days Qty: 30 0RF potassium chloride [Klor-Con M20] 20 mEq tablet,ER particles/crystals 20 meq PO BID Qty: 20 0RF Continued aspirin 81 mg tablet,chewable 81 mg PO DAILY fexofenadine [Fozia Allergy] 180 mg tablet 180 mg PO DAILY PRN (Reason: SEASONAL ALLERGIES) gabapentin 400 mg capsule 400 mg PO BID Qty: 180 1RF ibuprofen 800 mg tablet 800 mg PO TID PRN (Reason: pain) Qty: 270 3RF (DME) handicap placard See Rx Instructions .Route .MEDSUPPLY Qty: 1 0RF Rx Instructions: length of time=5years Dx=Debility Vicks DayQuil 30 ml PO/SL Q4H PRN (Reason: Cold Symptoms) tramadol 50 mg tablet 50 mg PO Q6H PRN (Reason: pain) 3 Days Qty: 12 0RF promethazine 25 mg tablet 25 mg PO Q6H PRN PRN (Reason: Nausea) Qty: 12 0RF potassium chloride [K-Tab] 20 mEq tablet extended release 20 meq PO BID Qty: 10 0RF Discontinued levofloxacin 750 mg tablet 750 mg PO DAILY Qty: 2 0RF Referrals / Follow Up: John Adams, [Primary Care Provider] - Within 1 Week Disposition Disposition (needs filled in before D/C Order can be placed): Home, Self Care
--- NOTE | 2022-06-07 14:53 | DS.PCM_ITS ---
Providers Date of Admission: 06/03/22 Primary Care Physician: Dr. John Adams, Consultations 06/05/22 18:07 Consult: Infectious Disease Routine Consulting Provider: Mike Gates Reason for Consult: e. coli bacteremia-advise treatment-unk source EMERGENT Consult: No MD Notified: Yes Date Notified: 06/06/22 Time Notified: 06:50 Method of Notification: Answering Service Reason For Visit: BACTEREMIA Diagnosis Discharge Diagnosis (1) Shortness of breath: Status: Acute Code(s): R06.02 - Shortness of breath Medications at Discharge Home Medications aspirin 81 mg chewable tablet 81 mg PO DAILY HEALTH MAINTENANCE 05/30/19 fexofenadine 180 mg tablet (Fozia Allergy) 180 mg PO DAILY PRN SEASONAL ALLERGIES 05/15/20 gabapentin 400 mg capsule 400 mg PO BID back pain #180 caps 02/24/22 ibuprofen 800 mg tablet 800 mg PO TID PRN pain #270 tabs 02/24/22 handicap placard #1 ea 05/08/22 Vicks DayQuil 30 ml PO/SL Q4H PRN Cold Symptoms 06/02/22 potassium chloride 20 mEq tablet,extended release (K-Tab) 20 meq PO BID #10 tabs 06/02/22 promethazine 25 mg tablet 25 mg PO Q6H PRN PRN Nausea #12 TABLETS 06/02/22 tramadol 50 mg tablet 50 mg PO Q6H PRN pain 3 days #12 tabs 06/02/22 cephalexin 500 mg capsule 500 mg PO TID 10 days #30 caps 06/07/22 potassium chloride 20 mEq tablet,extended release(part/cryst) (Klor-Con M) 20 meq PO BID #20 tabs 06/07/22 Hospital Course Operations None Procedures None Summary of Care Provided Minutes Spent on Discharge: 45 Hospital Course: Per HPI: PAUL MEHTA, is a 66-year-old female with a history of rheumatoid arthritis and chronic back pain who presented to [facility] 06/03/2022 after being called for 2 out of 2 blood cultures obtained the day prior positive for gram-negative rods.? She reports she initially was sick 4 months ago with COVID and since that time and has had a waxing and waning course of shortness of breath and cough.? Cough is worsened over the past month with intermittent yellow sputum then primarily clear, has also had some worsened shortness of breath which did worsen further over the past 48 hours.? She did present yesterday 06/02 and ultimately was discharged on Levaquin but today the blood cultures were noted to be positive and she was called back.? Today she reports she does feel worse from shortness of breath standpoint as well as coughing and has had poor appetite and nausea since yesterday as well as some right-sided pain when she coughs, did not report any other specific complaints at this time. Hospital Course: 1. E. coli bacteremia/dyspnea?66-year-old female presented initially to the hospital with a leukocytosis with an unknown source of infection, was discharged home on Levaquin but then was called back because her blood cultures came back positive for gram-negative rods. CT of her chest abdomen and pelvis was all negative for good source of infection, initially it was thought that the there might be some parenchymal changes with pyelonephritis however ultrasounds of the kidneys were negative. An MRI of her back since she was having back pain in the setting of this bacteremia, was negative for any signs of infection, she does have significant back pathology from an orthopedic standpoint but nothing consistent with current infection. Infectious disease was consulted and felt that the likely source was her urine and recommended 10 more days of Keflex 500 mg 3 times daily. Will also discharge on more potassium and recommend outpatient follow-up with her PCP for monitoring her potassium levels. Her magnesium and phosphorus levels were checked and these were normal. I discussed with her the plan for discharge today and she expressed understanding of the risk benefits going home and would like to go home today. Physical Exam Narrative General: Alert, Oriented x3, Cooperative, No apparent distress HEENT: Atraumatic, PERRLA, EOMI, Normocephalic Oral: Moist Mucosa Neck: Supple, No JVD Lungs: Diminished, Normal air movement, No rhonchi, No wheeze, No rales Cardiovascular: Regular rate, Regular Rhythm, Normal S1, Normal S2, No murmurs Abdomen: Soft, Non Tender, Non-Distended, No Hepato-splenomegaly Extremities: No edema, Capillary Refill Less than 3 Seconds Skin: No rashes, No breakdown Musculoskeletal: No Tenderness to Palpation of Joints or Extremities, she does have some moderate tenderness to her midline spine and her lumbar region Neurological: Cranial nerves II-XII grossly intact, Motor Exam 5/5 strength throughout, Sensory exam intact to light touch and pain Psych/Mental Status: Normal Affect, Appropriate Weight / BMI Weight Weight: 220 lb 14.451 oz Body Mass Index (BMI) 36.1 ABG / Lab / Microbiology Data Result Diagrams: 06/07/22 04:50 06/07/22 04:50 Laboratory: Laboratory Results - last 24 hr 06/07/22 04:50: WBC 15.8 H, RBC 3.77 L, Hgb 10.9 L, Hct 34.8 L, MCV 92.3, MCH 28.9, MCHC 31.3 L, RDW Std Deviation 55.5 H, RDW Coeff of Kaiser 16.4 H, Plt Count 316, MPV 12.4 H, Neut % (Auto) Not Reportable, Absolute Neuts (auto) 9.0 H, Absolute Lymphs (auto) 3.94, Total Counted 100, Neutrophils % (Manual) 57, Lymphocytes % (Manual) 25, Monocytes % (Manual) 11 H, Eosinophils % (Manual) 3, Basophils % (Manual) 1, Metamyelocytes % 1, Myelocytes % 2 H, Diff Path Review May foll, Platelet Estimate ADEQUATE, RBC Morphology NORM C+C 06/07/22 04:50: Sodium 138, Potassium 3.1 L, Chloride 105, Carbon Dioxide 24.0, Anion Gap 9, BUN 6 L, Creatinine 0.65, Estim Creat Clear Calc 51.11, Est GFR (MDRD) Af Amer 116, Est GFR (MDRD) Non-Af 96, BUN/Creatinine Ratio 9.2 L, Glucose 104, Calcium 8.5 Microbiology: Microbiology 06/03/22 21:10 Blood Culture (Wb) - Left Hand Blood Culture - Preliminary No growth in 48 hours. 06/03/22 20:43 Blood Culture (Wb) - Anticubital Left Blood Culture - Preliminary No growth in 48 hours. 06/04/22 01:40 Urine, Clean Catch Urine Culture - Final Culture exhibits no growth. Radiography Diagnostic Testing: Radiology Impression Lumbar Spine MRI 06/06/22 13:53 IMPRESSION: 1. Extensive multilevel lumbar spondylosis, multilevel disc bulge/protrusion and osteophyte complexes. Multilevel canal narrowing is present. 2. Mild vertebral body loss at the T11 level with deformity of the inferior endplate, discogenic endplate changes and a broad-based posterior disc protrusion and osteophyte complex at this level contribute to canal stenosis, there is cord contact and cord displacement. Mild cord deformity without evidence of acute cord edema. 3. Significant multilevel disc changes as detailed, most significant is eccentric bulge/protrusion and osteophyte complex at L3-4 with compromise of the LEFT neural foramen and likely impingement of the LEFT L3 nerve root. 4. Additional degenerative disc change and extruded disc material at the L4-5 level projecting superiorly in the epidural space, compromise of the RIGHT lateral recess with potential RIGHT L4 and L5 nerve root impingement without canal stenosis. 5. No evidence of paraspinal fluid collections or abscess. No epidural abscess noted. No evidence of discitis or osteomyelitis. Electronically Signed: Vincenzo Ochoa MD at 20:44 EST , D/C Instructions Discharge Diet: No restrictions Call your doctor if you observe: Fever of 101 or Higher, Shortness of breath, Dizziness, Fainting spells, Swelling in the ankles, Chest pain and Increased palpitations (irregular heartbeat) Meaningful Use Info Meaningful Use Diagnoses (Choose all that apply): None applicable Discharge Plan Admission Admit Date/Time: 06/03/22 22:02 Attending Provider: Wilson Cruz Primary Care Provider: John Adams Consulting Providers: Esther Perry ; Mike Gates Instructions Additional Instructions / Restrictions: Follow-up with your PCP in 3 to 5 days to obtain outpatient lab work to monitor your potassium. Discharge Orders/Prescriptions Prescriptions: New cephalexin 500 mg capsule 500 mg PO TID 10 Days Qty: 30 0RF potassium chloride [Klor-Con M20] 20 mEq tablet,ER particles/crystals 20 meq PO BID Qty: 20 0RF Continued aspirin 81 mg tablet,chewable 81 mg PO DAILY fexofenadine [Fozia Allergy] 180 mg tablet 180 mg PO DAILY PRN (Reason: SEASONAL ALLERGIES) gabapentin 400 mg capsule 400 mg PO BID Qty: 180 1RF ibuprofen 800 mg tablet 800 mg PO TID PRN (Reason: pain) Qty: 270 3RF (DME) handicap placard See Rx Instructions .Route .MEDSUPPLY Qty: 1 0RF Rx Instructions: length of time=5years Dx=Debility Vicks DayQuil 30 ml PO/SL Q4H PRN (Reason: Cold Symptoms) tramadol 50 mg tablet 50 mg PO Q6H PRN (Reason: pain) 3 Days Qty: 12 0RF promethazine 25 mg tablet 25 mg PO Q6H PRN PRN (Reason: Nausea) Qty: 12 0RF potassium chloride [K-Tab] 20 mEq tablet extended release 20 meq PO BID Qty: 10 0RF Discontinued levofloxacin 750 mg tablet 750 mg PO DAILY Qty: 2 0RF Referrals / Follow Up: John Adams DO [Primary Care Provider] - Within 1 Week Disposition Disposition (needs filled in before D/C Order can be placed): Home, Self Care Charges/Coding Visit Charges Inpatient E&M: 37523 Disch Hosp >30min
[2022-06-10 14:49] LABS: Pathologist Review Reviewed
== END 2022-06-07 13:05 | disposition home or self-care (01) | DRG 872 ==
LOC: ED 21:02 → PCU 22:07
PROVIDERS: Admitting Provider Internal Medicine; Emergency Provider Emergency Medicine; PCP Family Medicine; Visit Provider Family Medicine
DX: R78.81 Bacteremia (principal); N17.9 Acute kidney failure, unspecified; M06.9 Rheumatoid arthritis, unspecified; E87.6 Hypokalemia; M54.9 Dorsalgia, unspecified; R11.2 Nausea with vomiting, unspecified; B96.20 Unspecified Escherichia coli [E. coli] as the cause of diseases classified elsewhere; G89.29 Other chronic pain; R06.00 Dyspnea, unspecified; Z79.82 Long term (current) use of aspirin; E66.9 Obesity, unspecified; Z79.1 Long term (current) use of non-steroidal anti-inflammatories (NSAID); Z86.16 Personal history of COVID-19; Z96.653 Presence of artificial knee joint, bilateral
CPT/HCPCS: 36415; 71046; 71275; 72158; 74150; 76770; 80048; 80053; 81001; 82803; 83605; 83735; 83880; 84100; 84132; 84484; 85025; 85379; 85610; 85730; 87040; 87077; 87086; 87186; 93005; 94640; 94668; 96361; 96365; 96366; 96375; 97802; 99284; A9575; J7030; J7040; J7050; Q9967; A4216; J2405

== ENCOUNTER → 2022-06-10 | Outpatient (CLI) | payer MEDICARE, OTHER, SELFPAY ==
[2022-06-10 12:25] LABS: Hematocrit 42.1 % (37-47); Hemoglobin 12.8 g/dL (12.0-15.0); Mean Corp Hgb Conc 30.4 g/dL (32-36); Mean Corpuscular Volume 95.5 fL (81-99); Mean Platelet Vol. 13.8 fl (6.2-12.0); POSITIVE COUNT YES; POSITIVE MORPHOLOGY YES; Platelet Count 373 K/mm3 (150-450); RBC Distribution Width CV 16.9 % (11.6-14.6); RBC Distribution Width SD 59.3 fl (35.1-43.9); Red Blood Count 4.41 M/mm3 (4.2-5.4); White Blood Count 20.3 K/mm3 (4.4-11.0)
[2022-06-10 12:27] LABS: Differential Indicated MANUAL DIFF
[2022-06-10 12:39] LABS: Anion Gap 10 (5-15); BUN 7 mg/dL (7-18); BUN/Creat Ratio 10.6 RATIO (10-20); Calcium,Total 9.8 mg/dL (8.5-10.1); Chloride 107 mmol/L (98-107); Creatinine, Serum 0.66 mg/dL (0.55-1.02); EST Glomerular Filtration Rate 95 mL/min (>60); Est Glom Filt Rate - Afr Amer 115 mL/min (>60); Glucose 117 mg/dL (74-106); Potassium 4.5 mmol/L (3.5-5.1); Sodium Level 139 mmol/L (136-145)
[2022-06-10 12:56] LABS: Eosinophil 2 % (0-5); Lymphocyte 21 % (19-41); Metamyelocyte 1 % (0-1); Monocyte 7 % (0-10); Myelocyte 5 % (0-0); Neutrophil-Segmented 64 % (47-70); Total Cells Counted 100 (MANUAL DIFF)
[2022-06-10 12:57] LABS: Platelet Estimate ADEQUATE (ADEQ); Red Cell Morphology NORM C+C NORMAL (NORM C&C)
[2022-06-10 12:58] LABS: Absolute Lymphocyte Count 4.26 X10^3/uL (0.83-4.51)
[2022-06-11 13:32] LABS: Pathologist Review Reviewed
== END | disposition home or self-care (01) ==
LOC: BIMLAB 08:47
PROVIDERS: PCP Family Medicine; Referring Provider Family Medicine; Visit Provider Family Medicine
DX: E87.6 Hypokalemia (principal); M06.9 Rheumatoid arthritis, unspecified
CPT/HCPCS: 36415; 80048; 85025

== ENCOUNTER → 2022-06-18 | Outpatient (CLI) | payer MEDICARE, OTHER, SELFPAY ==
--- NOTE | 2022-06-18 13:18 | ECHOD_ITS ---
Reason For Study: Dyspnea/SOB Procedure This was a 2D Doppler, Color Flow transthoracic echocardiogram. Exam performed in department. Left Ventricle Normal LV size. Left ventricular systolic function is normal. The estimated ejection fraction is 60 %. Stage 1 diastolic dysfunction. No regional wall motion abnormalities noted. Right Ventricle Normal RV size. Normal systolic function. Atria Normal left atrium. Normal right atrium. Mitral Valve Normal mitral valve. Tricuspid Valve Normal tricuspid valve. Aortic Valve Trisinus/trileaflet aortic valve. Pulmonic Valve Normal pulmonic valve. Great Vessels Normal aortic root. The pulmonary artery is normal size. Normal inferior vena cava. Pericardium/Pleural No pericardial effusion. MMode/2D Measurements & Calculations LVIDd: 4.6 cm IVSd: 0.94 cm LA dimension: 4.0 cm LVIDs: 3.0 cm LVPWd: 1.00 cm RVDd: 3.2 cm FS: 36.2 % LAV(MOD-bp): 46.2 ml LA A4 area: 16.7 cm2 RA A4 area: 15.2 cm2 LAV(MOD-bp) Indexed: 22.0 ml/m2 LAV(MOD-sp2): 50.9 ml LAV(MOD-sp4): 42.0 ml Time Measurements MV dec time: 0.26 sec Doppler Measurements & Calculations MV E max toan: 76.7 cm/sec Lat Peak E' Toan: 11.1 cm/sec Med Peak E' Toan: 7.3 cm/sec MV A max toan: 84.6 cm/sec E/E' lat: 6.9 E/E' med: 10.6 MV E/A: 0.91 MV V2 max: 95.9 cm/sec MV dec slope: 293.9 cm/sec2 Ao V2 max: 144.7 cm/sec MV max P.7 mmHg Ao max P.4 mmHg MV V2 mean: 54.7 cm/sec Ao V2 mean: 96.8 cm/sec MV mean P.4 mmHg Ao mean P.3 mmHg MV V2 VTI: 27.1 cm Ao V2 VTI: 30.2 cm AV (velocity ratio): 0.85 LV V1 max: 108.3 cm/sec PA V2 max: 118.6 cm/sec LV V1 max P.7 mmHg LV V1 mean P.5 mmHg LV V1 mean: 73.3 cm/sec LV V1 VTI: 25.6 cm ECHO/Echo Complete Interpretation Summary Normal LV size. Left ventricular systolic function is normal. The estimated ejection fraction is 60 %. Stage 1 diastolic dysfunction. Structurally normal valves. Ordering Physician: John Adams Referring Physician: John Adams Performed By: Deandre Carrillo RCS
[2022-06-18 16:28] LABS: Absolute Lymphocyte Count 2.03 X10^3/uL (0.83-4.51); Absolute Neutrophil Count 6.6 X10^3/uL (2.0-7.7); Basophil# 0.09 X10^3/uL; Basophil% 0.9 % (0-1); Eosinophil# 0.28 X10^3/uL; Eosinophils% 2.9 % (0-5); Hematocrit 40.1 % (37-47); Hemoglobin 12.2 g/dL (12.0-15.0); Lymphocyte # 2.03 X10^3/ul (0.83-4.51); Lymphocyte % 20.9 % (19-41); Mean Corp Hgb Conc 30.4 g/dL (32-36); Mean Corpuscular Hgb 29.3 pg (27.0-32.0); Mean Corpuscular Volume 96.2 fL (81-99); Mean Platelet Vol. 14.1 fl (6.2-12.0); Monocyte# 0.68 X10^3/uL; NRBC Flagged by Analyzer 0 % (0-5); Neutrophil # 6.57 X10^3/uL (2.7-7.7); Neutrophil % 67.7 % (47-70); Platelet Count 313 K/mm3 (150-450); RBC Distribution Width CV 16.2 % (11.6-14.6); RBC Distribution Width SD 58.4 fl (35.1-43.9); Red Blood Count 4.17 M/mm3 (4.2-5.4); White Blood Count 9.7 K/mm3 (4.4-11.0)
== END | disposition home or self-care (01) ==
LOC: CVS 12:56
PROVIDERS: PCP Family Medicine; Referring Provider Family Medicine; Visit Provider Family Medicine
DX: D72.829 Elevated white blood cell count, unspecified (principal); R06.02 Shortness of breath
CPT/HCPCS: 36415; 85025; 93306

== ENCOUNTER → 2022-07-22 | Outpatient (CLI) | payer MEDICARE, OTHER, SELFPAY ==
[2022-07-22 12:47] LABS: AST(SGOT) 13 U/L (15-37); Alanine Aminotransfer ALT/SGPT 17 U/L (13-56); Albumin, Serum 3.4 g/dL (3.2-5.0); Alkaline Phosphatase 118 U/L (45-117); Anion Gap 5 (5-15); BUN 14 mg/dL (7-18); BUN/Creat Ratio 21.3 RATIO (10-20); Calcium,Total 9.5 mg/dL (8.5-10.1); Chloride 110 mmol/L (98-107); Creatinine, Serum 0.66 mg/dL (0.55-1.02); EST Glomerular Filtration Rate 95 mL/min (>60); Est Glom Filt Rate - Afr Amer 115 mL/min (>60); Globulin 3.5 g/dL (2.2-4.2); Glucose 105 mg/dL (74-106); Potassium 3.3 mmol/L (3.5-5.1); Protein, Total 6.9 g/dL (6.4-8.2); Sodium Level 142 mmol/L (136-145)
== END | disposition home or self-care (01) ==
LOC: BIMLAB 09:54
PROVIDERS: PCP Family Medicine; Referring Provider Family Medicine; Visit Provider Family Medicine
DX: R03.0 Elevated blood-pressure reading, without diagnosis of hypertension (principal); E87.6 Hypokalemia
CPT/HCPCS: 36415; 80053

== ENCOUNTER → 2023-01-13 | Outpatient (CLI) | payer MEDICARE, OTHER, SELFPAY ==
[2023-01-20 22:08] LABS: HPV Reflexed? NOT INDICATED
== END | disposition home or self-care (01) ==
LOC: LABSPEC 16:34
PROVIDERS: PCP Family Medicine; Referring Provider Obstetrics & Gynecology; Visit Provider Obstetrics & Gynecology
DX: Z12.4 Encounter for screening for malignant neoplasm of cervix (principal)
CPT/HCPCS: 88175; G0145

== ENCOUNTER → 2023-02-03 | Outpatient (CLI) | payer MEDICARE, OTHER, SELFPAY ==
--- NOTE | 2023-02-03 08:22 | US_ITS ---
INDICATION: uterovaginal prolapse EXAMINATION: Ultrasound US Pelvis Non OB Complete With Transvaginal Imaging TECHNIQUE: Transabdominal and transvaginal pelvic ultrasound was performed. Grayscale, spectral waveform, and color flow Doppler evaluation of the adnexa. COMPARISON: No relevant prior comparison study available FINDINGS: UTERUS: Anteverted. The uterus measures 8.9 x 3.6 x 2.9 cm. There is no uterine mass. There are calcifications in the peripheral aspect of the uterus. The endometrial stripe measures 2.3 mm in AP diameter which is within normal limits. The uterus appears to be somewhat prominent but no focal mass is definitely identified on this examination. Correlation with clinical findings recommended. Nabothian cyst is seen in the cervix. RIGHT OVARY: 1.6 x 0.9 x 0.9 cm. Non-enlarged, normal echogenicity. There is normal arterial inflow and venous outflow present in the right ovary. LEFT OVARY: Not visualized. FREE FLUID: None. US/Pelvic (Non ) IMPRESSION: 1. Slightly prominent uterus. 2. Nonvisualization of the left ovary. Electronically Signed: Anup Jade MD at 12:52 EDT ,
== END | disposition home or self-care (01) ==
LOC: OPUS 08:21
PROVIDERS: PCP Family Medicine; Referring Provider Obstetrics & Gynecology; Visit Provider Obstetrics & Gynecology
DX: N81.3 Complete uterovaginal prolapse (principal)
CPT/HCPCS: 76830; 76856

== ENCOUNTER 2023-05-04 06:01 | Day surgery (SDC) | payer MEDICARE, OTHER, SELFPAY ==
--- OUTSIDE RECORDS SUMMARY | 2023-05-04 06:11 | XMS RPT_ITS | CCD ---
Author Name Unknown Address [address] [place] [address] Organization [facility] Care Team Providers Care Cleat Blanker Name Role Phone JENNA EDGAR DO Primary Care Physician Medications Current Medications Medication Drug Class(es) Dates Sig (Normalized) Sig (Original) acetaminophen 1000 mg oral tablet (1 source) Start: 03-20-2021 take 1 tablet by mouth once daily Tylenol Dose : 1,000 mg = 2 tab(s), Oral, TID, not to exceed 3000 mg/day, 0 Refill(s) Start Date: 03/20/21 Status: Ordered aspirin 81 mg oral tablet (2 sources) Platelet Aggregation Inhibitor, Nonsteroidal Anti-inflammatory Drug Start: 01-09-2021 take 1 tablet by mouth twice daily at mealtime aspirin Dose : 81 mg = 1 tab(s), Oral, BIDM, Take 81 mg aspirin twice daily with food for 4 weeks postoperatively for DVT prophylaxis, 0 Refill(s) Start Date: 01/09/21 Status: Ordered doxycycline hyclate 100 mg oral capsule (1 source) Tetracycline-class Drug Start: 03-20-2021 End: 03-27-2021 doxycycline monohydrate 100 mg oral capsule Dose : 100 mg = 1 cap(s), Oral, BID, Take for 1 week postoperatively, # 14 cap(s), 0 Refill(s), 03/27/21 7:47:00 EST, Pharmacy: [facility]/pharmacy #[id number], 165.1, cm, 03/20/21 1:31:00 EST, Height, 118, kg, 03/20/21 1:31:00 EST, Dosing Weight Start Date: 03/20/21 Stop Date: 03/27/21 Status: Ordered famotidine 20 mg oral tablet (2 sources) Histamine-2 Receptor Antagonist Start: 03-20-2021 Pepcid 20 mg oral tablet Dose : 20 mg = 1 tab(s), Oral, qDay, # 30 tab(s), 0 Refill(s), Pharmacy: [facility]/pharmacy #[id number], 165.1, cm, 03/20/21 1:31:00 EST, Height, kg, 03/20/21 1:31:00 EST, Dosing Weight Start Date: 03/20/21 Status: Ordered Completed/Discontinued Medications Medication Drug Class(es) Dates Sig (Normalized) Sig (Original) gabapentin 400 mg oral capsule (2 sources) Anti-epileptic Agent Start: 12-21-2020 gabapentin 400 mg oral capsule Dose : 400 mg = 1 cap(s), Oral, BID, 0 Refill(s), 109.1 Start Date: 12/21/20 Status: Ordered Problems Problem Classification Problem Date Documented Da te Episodic/Chronic Osteoarthritis (2 sources) Osteoarthritis; Translations: [Unspecified osteoarthritis, unspecified site] Onset: 03-19-2021 Chronic Other connective tissue disease (1 source) Artificial knee joint present; Translations: [Presence of unspecified artificial knee joint] Onset: 03-19-2021 Chronic Other nutritional; endocrine; and metabolic disorders (3 sources) Morbid obesity; Translations: [Morbid (severe) obesity due to excess calories] Onset: 03-19-2021 01-08-2021 Chronic Residual codes; unclassified (2 sources) Chronic back pain 11-12-2017 Episodic Rheumatoid arthritis and related disease (1 source) Rheumatoid arthritis; Translations: [Rheumatoid arthritis, unspecified] Onset: 03-19-2021 Chronic Spondylosis; intervertebral disc disorders; other back problems (1 source) Backache; Translations: [Dorsalgia, unspecified] Onset: 03-19-2021 Episodic Results Test Name Value Interpretation Reference Range Facil ity Vital Signs Date Time Vital Sign Value Performing Clinician Faci lity 03-20-2021 15:31-0500 Body temperature 97.7 [degF] DR JOSE HICKEY MD [facility] 03-20-2021 15:31-0500 Diastolic Blood Pressure NBP [address] JOSE HICKEY MD [facility] 03-20-2021 15:31-0500 Heart rate 87 /min DR JOSE HICKEY MD [facility] 03-20-2021 15:31-0500 Respiratory rate 18 /min DR JOSE HICKEY MD [facility] 03-20-2021 15:31-0500 Systolic Blood Pressure NBP [address] JOSE HICKEY MD [facility] 03-20-2021 11:20-0500 Body temperature 97.88 [degF] DR JOSE HICKEY MD [facility] 03-20-2021 11:20-0500 Diastolic Blood Pressure NBP [address] JOSE HICKEY MD [facility] 03-20-2021 11:20-0500 Heart rate 84 /min DR JOSE HICKEY MD [facility] 03-20-2021 11:20-0500 Respiratory rate 18 /min DR JOSE HICKEY MD [facility] 03-20-2021 11:20-0500 Systolic Blood Pressure NBP [address] JOSE HICKEY MD [facility] 03-20-2021 07:33-0500 Body temperature 98.42 [degF] DR JOSE HICKEY MD [facility] 03-20-2021 07:33-0500 Diastolic Blood Pressure NBP [address] JOSE HICKEY MD [facility] 03-20-2021 07:33-0500 Heart rate 81 /min DR JOSE HICKEY MD [facility] 03-20-2021 07:33-0500 Respiratory rate 18 /min DR JOSE HICKEY MD [facility] 03-20-2021 07:33-0500 Systolic Blood Pressure NBP [address] JOSE HICKEY MD [facility] 03-20-2021 03:27-0500 Heart rate 88 /min DR JOSE HICKEY MD [facility] 03-20-2021 00:42-0500 Heart rate 87 /min DR JOSE HICKEY MD [facility] 03-19-2021 20:28-0500 Diastolic blood pressure 70 mm[Hg] DR JOSE HICKEY MD [facility] 03-19-2021 20:28-0500 Heart rate 94 /min DR JOSE HICKEY MD [facility] 03-19-2021 20:28-0500 Systolic blood pressure 138 mm[Hg] DR JOSE HICKEY MD [facility] 03-19-2021 17:10-0500 Body temperature 96.8 [degF] DR JOSE HICKEY MD [facility] 03-19-2021 12:16-0500 Body height 165.[address] JOSE HICKEY MD [facility] 03-19-2021 12:16-0500 Body weight [address] JOSE HICKEY MD [facility] 03-19-2021 12:16-0500 Body weight 43.29 kg/m2 DR JOSE HICKEY MD [facility] 03-19-2021 12:04-0500 Body temperature 97.34 [degF] DR JOSE HICKEY MD [facility] 03-19-2021 12:04-0500 Diastolic blood pressure 67 mm[Hg] DR JOSE HICKEY MD [facility] 03-19-2021 12:04-0500 Heart rate 72 /min DR JOSE HICKEY MD [facility] 03-19-2021 12:04-0500 Systolic blood pressure 152 mm[Hg] DR JOSE HICKEY MD [facility] Encounters Encounter Date Encounter Type Care Provider Facility Start: 03-19-2021 End: 03-20-[address] JOSE HICKEY MD [facility] Start: 03-01-2021 End: 03-01-[address] JOSE HICKEY MD [facility] Procedures Date Procedure Procedure Detail Performing Clinician Start: 01-08-2021 Structure of left kn ee (body structure) DR JOSE HICKEY MD Decompression of med mark nerve DR JOSE HICKEY MD Immunizations Immunization Date Immunization Notes Care Provider Fa cility 08-15-2020 SARS-CoV-2 (COVID-19 ) mRNA-[id number] JOSE HICKEY MD [facility] Social History Date Type Detail Facility Start: 12-21-2020 Never smoked t obacco (finding) [facility] Sex Assigned At [facility] Hospital Discharge instructions 03-20-2021 Note Date & Type Note Facility 03-20-2021 Hospital Discharg e instructions Patient Education 03/20/2021 07:46:05 5 - [facility] Post-op Instruction 11/2016 (64816) [facility] Post-operative Instructions PLEASE FOLLOW [facility] POST-OP INSTRUCTIONS GIVEN WATCH FOR SIGNS OF INFECTION: call the office ([phone]) if experencing any of the following: (Usually appears 36-48 hours after surgery) Increased temperature (101 degrees Fahrenheit or higher) Redness or swelling Increased uncontrolled pain Foul odor or drainage Calf discomfort Significant swelling Or if having any chest pain, shortness of breath, or difficulty breathing or swallowing call the office or go the nearest Emergency Room. If you have any questions, please call your doctor at the number listed on your follow up instructions. Form: 338A (22541) R: 08/24 Follow Up Care 02/28/2021 15:44:07 With:[facility] Address: [address] [place] [address] [phone] When:03/22/2021 10:00:00 Comments:This is your first physical therapy appointment. Follow-up as scheduled. With:JOSE HICKEY MD Address: [address] [place] [address] [phone] When:04/01/2021 14:00:00 Comments:This is your post-op appointment and is in the [facility] office. Follow-up as scheduled. [facility] Progress note 08-27-2020 Note Date & Type Note Facility 08-27-2020 Note HNO ID: [id number] Author: Heber Perry MD Service: ? Author Type: Physician Type: Progress Notes Filed: 08/28/2020 7:41 AM Note Text: Heber Perry MD Department of Orthopaedics Orthopa[facility]ics [address] [facility] [address] Dept: [phone] Dept August 27, 2020 CHIEF COMPLAINT: New and Knee Pain of the Right Knee and New and Knee Pain of the Left Knee HPI Patient here today for bilateral knee pain x 7-8 years. States she has seen Orthopaedics at [facility] and was told to lose weight. She has not been able to exercise due to knee pain. Gives history of Rheumatoid arthritis. X-ray at [facility] today. ASSESSMENT: M17.0 Primary osteoarthritis of both knees (primary encounter diagnosis) M25.561, M25.562, G89.29 Chronic pain of both knees E66.01, Z68.41 Morbid obesity with BMI of 40.0-44.9, adult (HCC) PLAN: Patient has severe bilateral knee arthritis. She is also dealing with morbid obesity. We talked about different options as far as setting her up with somebody to discuss potential surgery in town versus going up to main campus to see one of our joint reconstruction specialist. In the meantime, she has to work on weight loss and I put in a consultation for our weight loss program. FOLLOW UP INSTRUCTIONS: As above Paul Marco A Mehta was advised as to contrast therapies and/or to take analgesics/anti-inflammatories as needed and all contraindications were reviewed. OBJECTIVE: Ms. Paul Mehta is a pleasant 64 year old in no apparent distress. Gen:Ht 5' 5 (1.65m) Wt 270 lb (122.5kg) BMI 44.93 kg/(m2). nl development, Morbidly obese, no deformities ENT: Normocephalic, normal hearing, moist mucosa CV: Pulses:DP/PT= 2+ and symmetric, capillary refill < 2 secs, no peripheral edema/varicosities Skin: no rash, bruising or lesions. Good turgor. Psych: cooperative and appropriate, alert and oriented x 3, good mood and affect. Musculoskeletal: Significant difficulty with ambulation with, use of a cane. Marked varus of both knees which do not correct to neutral. Motion is limited from 10?110 degrees at each knee. IMAGING: IMPRESSION: Advanced degenerative changes as described. Knife Machine Operator: PSCB ? Transcribe Date/Time: Aug 27 2020 ?3:27P Dictated by : DEMETRI HALL MD This examination was interpreted and the report reviewed and electronically signed by: DEMETRI HALL MD on Aug 27 2020 ?3:29PM ?EST Results-Findings * * *Final Report* * * DATE OF EXAM: Aug 27 2020 ?3:12PM ? WRX ? [id number] ?- ?XR KNEE 4V AP/PA/LAT/MERC LAKESHIA ? / PROCEDURE REASON: Pain ?? ? * * * * Physician Interpretation * * * * ?CLINICAL INDICATION: Knee pain TECHNIQUE: 4 view radiographic study of the bilateral knees COMPARISON: None FINDINGS: Right knee: Trace fluid in the suprapatellar joint space. Osseous demineralization. Genu varus deformity. Severe medial compartmental joint space narrowing with subchondral sclerosis. Severe patellofemoral compartmental joint space narrowing. Tricompartmental osteophyte production. Left knee: Small suprapatellar joint effusion. Osseous demineralization. Genu varus deformity. Severe medial and patellofemoral compartmental joint space narrowing. Tricompartmental osteophyte production. 1.5 cm calcified loose body in the suprapatellar joint space. Supporting Subjective Information Below: Past Medical History: No past medical history on file. Past Surgical History: PAST SURGICAL HISTORY Procedure Laterality Date - LIGATE FALLOPIAN TUBE 1983 - PAST SURGICAL HISTORY OF 2009 Low back surgery - unsure what level - REVISE MEDIAN N/CARPAL TUNNEL SURG Bilateral - TONSILLECTOMY AND ADENOIDECTOMY HX as a child Family History: FAMILY HISTORY Problem Relation Age of Onset - Blood Clots Mother - other (malaria) Father - other (heart issues) Father - Diabetes Sister Social History: Social History Tobacco Use - Smoking status: Never Smoker - Smokeless tobacco: Never Used Vaping Use - Vaping Use: Never used Substance Use Topics - Alcohol use: Yes Comment: once a year - Drug use: Never Medications: Current Outpatient Medications Medication Sig - aspirin 81 mg chewable tablet Take 1 tablet by mouth once daily. - gabapentin (NEURONTIN) 400 mg capsule Take 400 mg by mouth twice daily. - Cholecalciferol, Vitamin D3, 50 mcg (2,000 unit) cap Take 1 capsule by mouth once daily. - ibuprofen (MOTRIN) 800 mg tablet Take 800 mg by mouth three times daily. No current facility-administered medications for this visit. Allergies: Patient has no known allergies. ROS: General (negative for fatigue, malaise, weight loss/gain) HEENT (negative for headache, earache, recent vision changes, sinus pain, sore throat) Respiratory (no recent shortness of breath, hemoptysis) CV (negative for chest tightness, palpitations) Musculoskeletal (see HPI) Psych (no depres (more content not included)... [facility] Progress note 08-27-2020 Note Date & Type Note Facility 08-27-2020 Note HNO ID: [id number] Author: Radha Mcrae RT(R) Service: ? Author Type: Oil Lease Operator Type: Progress Notes Filed: 08/27/2020 3:14 PM Note Text: Radiology Service Progress Note PATIENT NAME: Paul Mehta DATE OF SERVICE: August 27, 2020 TIME: 3:13 PM PATIENT IDENTITY VERIFICATION COMPLETED USING TWO (2) IDENTIFIERS: Name and Date of confirmed by patient verbally. FALL SCREENING: Has the patient had 2 falls in the last year or 1 fall with injury or currently using an Ambulatory Assistive Device (Walker, Cane, Wheelchair, Crutches, etc.)? Yes, Patient High Risk for Falls What interventions were put in place to prevent falls during this visit? Instructed Patient to Call for Help if Needed, Offered Assistance with Transfers/Clothing, Instructed Patient to Remain Seated (Not on Exam Table) Until Exam, Increased Observations by Caregivers and Patient Refused Interventions/Assistance PATIENT GENDER DATA: Female. status: : No status: NO. PATIENT RELEVANT IMPLANT DATA REVIEWED: Not Applicable RADIOLOGY DEPARTMENT: General X-ray: Exam(s) Completed: Lower Extremity X-Ray(s): Knee, AP / Lat / Tunne / Merchant Bilateral and Wt. Bearing PERIPHERAL IV DATA: Not applicable SIGNED BY: Radha Mcrae, RT(R) August 27, 2020 3:13 PM [facility] Evaluation + Plan note Note Date & Type Note Facility Evaluation + Plan note Future Appointments [facility] Hospital course Narrative Note Date & Type Note Facility Hospital course Narrative No data available for this section [facility] Hospital Discharge instructions Note Date & Type Note Facility Hospital Discharge instructions No data available for this section [facility] Summary Purpose Family History No Family History Records FoundNo Family History Records Found Advance Directives No Advanced Directives Records FoundNo Advanced Directives Records Found Additional Source Comments INFORMATION SOURCE (unrecogn ized section and content) DATE CREATED AUTHOR AUTHOR'S ORGANIZ ATION 05/21/2021 [facility] FOR RECORDS PERTAINING TO PATIENTS WHO ARE OR HAVE BEEN ENROLLED IN A CHEMICAL DEPENDENCY/SUBSTANCEABUSE PROGRAM, SOME INFORMATION MAY BE OMITTED. This clinical summary was aggregated from multiple sources. Caution should be exercised in using it in the provision of clinical care. This summary normalizes information from multiple sources, and as a consequence, information in this document may materially change the coding, format and clinical context of patient data. In addition, data may be omitted in some cases. CLINICAL DECISIONS SHOULD BE BASED ON THE PRIMARY CLINICAL RECORDS. [employer] [facility]. provides no warranty or guarantee of the accuracy or completeness of information in this document.
[2023-05-04 06:42] VITALS: BP 126/66; PULSE 71; RESP 16; TEMP 36.6; O2SAT 93; BMI 34.7
[2023-05-04] MEDS: Lactated Ringers 1,000 ML 15 ML IV (06:54)
--- NOTE | 2023-05-04 07:11 | HP.PCM_ITS ---
HPI - General General Date of Service: 05/04/23 HPI Narrative PAUL MEHTA, is a 67 F who presents for EGD due to nausea. Patient still states she has nausea pretty much all the time. Patient has been on Protonix for several months now. Patient denies any abdominal pain. office visit 03/16/23 HPI HPI: 67-year-old female presents due to nausea and abdominal pain. Patient states she has had this for about a year states she has nausea all the time. Patient has been on a PPI for a few months denies any changes or any vomiting on this medication. Patient does occasionally take Tums. Patient has never had EGD. Patient had colonoscopy about 20 years ago but did request Cologuard from her primary as she is not really interested in doing a colonoscopy. Patient states she has some lower abdominal pain occasionally last about 5 minutes not really related to moving or eating or her vaginal prolapse. Patient states she has bowel movements daily. [facility] Medical History (Updated 04/28/23 @ 13:50 by Laurita Edmonds) Chronic back pain Easy bruising History of echocardiogram Migraine headache MRSA infection Non-smoker Post-menopausal Rheumatoid arthritis Uncomplicated opioid dependence Wears glasses Home Medications aspirin 81 mg chewable tablet 81 mg PO DAILY HEALTH MAINTENANCE 05/30/19 [History Last Taken 06/01/22] fexofenadine 180 mg tablet (Fozia Allergy) 180 mg PO DAILY PRN SEASONAL ALLERGIES 05/15/20 [History Last Taken Unknown] handicap placard #1 ea 05/08/22 [Rx Last Taken Unknown] potassium chloride 20 mEq tablet,extended release(part/cryst) (Klor-Con M) 20 meq PO BID #20 tabs 06/07/22 [Rx Last Taken Unknown] Handicap placard #1 ea 08/28/22 [Rx Last Taken Unknown] gabapentin 400 mg capsule 400 mg PO BID back pain #180 caps 01/27/23 [Rx Last Taken Unknown] ibuprofen 800 mg tablet 800 mg PO TID PRN pain #270 tabs 01/27/23 [Rx Last Taken Unknown] valsartan 160 mg tablet 160 mg PO DAILY #90 tabs 01/27/23 [Rx Last Taken Unkn own] promethazine 25 mg tablet See Rx Instructions .Route .COMPLEX #30 TABLETS 03/09/23 [Rx Last Taken Unknown] pantoprazole 40 mg tablet,delayed release See Rx Instructions .Route .COMPLEX #30 tabs 04/17/23 [Rx Last Taken Unknown] cholecalciferol (vitamin D3) 50 mcg (2,000 unit) tablet (Vitamin D3) 50 mcg PO DAILY 04/28/23 [History Last Taken Unknown] Allergy/AdvReac Type Severity Reaction Status Date / Time No Known Allergies Allergy Verified 04/28/23 13:39 Family History Mother Diabetes Father Heart disease Cancer Surgical History History of back surgery History of bilateral knee replacement History of carpal tunnel release History of tonsillectomy History of tubal ligation Social History Smoking Status: Never smoker alcohol intake: never substance use type: does not use caffeine: Yes what type of physical activity do you participate in: other details: stretches frequency: daily seatbelt use: always do you feel safe at home: Yes additional social history: Past Medical/Surgical History Planned Operation Planned Operative Procedure/s: EGD Previous Hospitalizations/Surgeries HX Hospitalizations: No Any Problems With Anesthesia: No You/Your Family Experience Fever (Hyperthermia) With Anes: No Cholinesterase deficiency: No Cardiovascular Hx Hypertension: Yes (CONTROLLED WITH MED) Respiratory Hx Sleep Apnea: No Hx Respiratory Tract Infection/Cold (presently): No Do You Snore Loudly (louder than talking or can be heard): No Do You Often Feel Tired/ Fatigued/ Sleepy Dring Daytime?: No Has Anyone Observed You Stop Breathing During Sleep?: No Result (for STOP score): Negative Smoking Status: Never smoker Neurological Hx Back Injury/Pain: Yes (back or) Does patient have nerve stimulator: No Miscellaneous Recent Exposure to Contagious Disease: No Allergies No Known Allergies Allergy (Verified 04/28/23 13:39) Discharge Is Pt Admitted From a Detention, or a [place] [facility]: No After D/C, Where Do you Plan to Go: Return Home Vital Signs Vital Signs Vital Signs: 05/04/23 06:40 05/04/23 06:42 Temperature 97.9 F Temperature Source Temporal Pulse Rate 71 Respiratory Rate 16 Respiratory Pattern Normal Blood Pressure 126/66 H Blood Pressure Mean 86 Blood Pressure Source Monitor Blood Pressure Position Sitting Blood Pressure Location Left Arm Pulse Ox 93 Oxygen Delivery Method Room Air Weight Weight: 215 lb Body Mass Index (BMI) 34.7 Physical Exam Const alert, oriented x3 and no apparent distress HEENT normocephalic and head/scalp atraumatic Resp normal respiratory effort Cardio regular rate GI soft to palpation and non-tender; Negative for non-distended Palpation: Negative for guarding Extremity no clubbing, cyanosis or edema Skin no rashes or lesions noted Neuro CN's II-XII intact bilaterally Psych mental status grossly normal Assessment & Plan Assessment/Plan (1) GERD (gastroesophageal reflux disease): (2) Nausea alone: Surgery Risks - Colonoscopy I discussed with the patient the risks of the procedure: Yes Risks Include but are not Limited To: To do an esophagogastroduodenoscopy Risks include but are not limited to: Bleeding, perforation requiring further surgery
[2023-05-04 08:15] VITALS: BP 126/66; BP 91/65; PULSE 78; RESP 16; TEMP 36.4; O2SAT 93
--- NOTE | 2023-05-04 08:15 | IMM_PTH ---
PATHOLOGY RESULTS PATIENT: PAUL MEHTA LOC: EN U#:[id number] AGE/SX: 67/F ROOM: RE05/04/[address]: Dr. Hanane Louie MD : 1955 BED: DIS: 05/04/2023 SPEC #: [id number] RECD: 05/05/23 07:43 STATUS: MARCELO REQ #: [id number] MELLISSA: 05/04/23 08:[address]: Hanane Louie DEPT: IMMUNOHISTOCHEMISTRY RECD BY: Apurva Bolton ENTERED: 05/05/23 07:44 SP TYPE: IMMUNO OTHR DR: Dr. John Adams, DO Tissues: Stomach, NOS Procedures: H Pylori (initial) PHYSICIAN & INSTITUTION [facility] [facility] [id number] SPECIMEN INFORMATION: Tissue Source: Antrum Clinical Info: GERD, nausea Specimen Number: [id number] CPT code: 39029 METHODOLOGY: Deparaffinized sections of prefer/formalin-fixed tissue or PAP/DQ stained slides are incubated with monoclonal/polyclonal antibodies/oligonucleotide probes. Localization is made via biotin free immunoperoxidase method. Appropriate controls are performed and reacted as expected. Results on target cell population are indicated in the following table: RESULTS: ANTIBODY / CLONE RESULT H Pylori (polyclonal) negative These tests were developed and their performance characteristics determined by [facility]. They may not have been cleared or approved by the U.S. Food and Drug Administration. The FDA has determined that such clearance or approval is not necessary. The above immunohistochemical/dualISH markers are ordered and reviewed by the Pathologist. INTERPRETATION: Antrum, biopsy: Negative for Helicobacter pylori organisms. SJ:andres 05/05/2023
--- NOTE | 2023-05-04 08:15 | EGD_PTH ---
PATHOLOGY RESULTS PATIENT: PAUL MEHTA LOC: EN U#:[id number] AGE/SX: 67/F ROOM: RE05/04/[address]: Dr. Hanane Louie MD : 1955 BED: DIS: 05/04/2023 SPEC #: [id number] RECD: 05/04/23 11:58 STATUS: MARCELO QUIANA #: [id number] MELLISSA: 05/04/23 08:[address]: Hanane Louie DEPT: SURGICAL PATHOLOGY RECD BY: Elidia Hernández ENTERED: 05/04/23 11:59 SP TYPE: EGD BIOPSY OTHR DR: Dr. John Adams, DO Tissues: Gastric mucous membrane Procedures: Surgery Specimen Level IV HEADER OPERATION: EGD with biopsy PRE-OP DIAGNOSIS: GERD, nausea TISSUE SUBMITTED: Antrum for H. pylori and path MICROSCOPIC DIAGNOSIS Antrum, biopsy: Mild gastritis. See microscopic description and comment. SJ:andres 05/05/2023 COMMENT The results of immunohistochemistry for Helicobacter pylori will be reported separately ([id number]). MICROSCOPIC DESCRIPTION Slides are reviewed. The specimen shows fragments of gastric mucosa with chronic inflammatory cell infiltrates in the lamina propria consisting of lymphocytes and plasma cells, consistent with mild chronic gastritis. GROSS DESCRIPTION Received in fixative is one container labeled with the patient's name and designated antrum. The specimen consists of one irregular fragment of light ayala soft tissue that measures 0.4 x 0.3 x 0.1 cm. The specimen is totally submitted in one cassette. / SJ:rg 05/04/2023 TC:3 CPT: 08117
--- NOTE | 2023-05-04 08:17 | OP.CCLET_ITS ---
05/04/2023 John Adams Re : Upper GI endoscopy procedure for Minerva Oliver Dear Dr. Adams This procedure was performed on Thursday, May 04, 2023. My impressions and recommendations are as follows: Impressions : - Z-line variable, 37 cm from the incisors. - Normal examined duodenum. - Erythematous mucosa in the antrum. Biopsied. - Normal esophagus. Recommendations : - Await pathology results. - Discharge patient to home. - Resume previous diet. - Continue present medications. - Use sucralfate tablets 1 gram PO QID for 2 weeks. My findings are described in the full procedure note, which is enclosed. If I can be of further assistance, please feel free to contact me at Doctor phone number(s): , Work: . Sincerely, MD Hanane Levy MD 05/04/2023 8:16:52 AM This report has been signed electronically.
--- NOTE | 2023-05-04 08:17 | OP.EGD_ITS ---
Patient Name: Minerva Oliver Procedure Date: 05/04/2023 7:58 AM Date of : 1955 Age: 67 Procedure: Upper GI endoscopy Indications: Abdominal pain, Nausea Providers: Hanane Louie MD Medicines: Monitored Anesthesia Care Patient Profile: This is a 67 year old female. Complications: No immediate complications. Procedure: Pre-Anesthesia Assessment: - Prior to the procedure, a History and Physical was performed, and patient medications and allergies were reviewed. The patient's tolerance of previous anesthesia was also reviewed. The risks and benefits of the procedure and the sedation options and risks were discussed with the patient. All questions were answered, and informed consent was obtained. Prior Anticoagulants: The patient has taken no anticoagulant or antiplatelet agents except for aspirin. ASA Grade Assessment: Per anesthesia. After reviewing the risks and benefits, the patient was deemed in satisfactory condition to undergo the procedure. After obtaining informed consent, the endoscope was passed under direct vision. Throughout the procedure, the patient's blood pressure, pulse, and oxygen saturations were monitored continuously. The Endoscope was introduced through the mouth, and advanced to the second part of duodenum. The upper GI endoscopy was accomplished without difficulty. The patient tolerated the procedure well. Scope In: 8:03:34 AM Scope Out: 8:07:35 AM Total Procedure Duration Time 0 hours 4 minutes 1 second Findings: The Z-line was variable and was found 37 cm from the incisors. The cardia and gastric fundus were normal on retroflexion. The examined duodenum was normal. Diffuse moderately erythematous mucosa without bleeding was found in the gastric antrum. Biopsies were taken with a cold forceps for histology. Biopsies were taken with a cold forceps for Helicobacter pylori cultures. The examined esophagus was normal. Impression: - Z-line variable, 37 cm from the incisors. - Normal examined duodenum. - Erythematous mucosa in the antrum. Biopsied. - Normal esophagus. Recommendation: - Await pathology results. - Discharge patient to home. - Resume previous diet. - Continue present medications. - Use sucralfate tablets 1 gram PO QID for 2 weeks. Procedure Code(s): --- Professional --- 33484, Esophagogastroduodenoscopy, flexible, transoral; with biopsy, single or multiple Diagnosis Code(s): --- Professional --- K22.89, Other specified disease of esophagus K31.89, Other diseases of stomach and duodenum R10.9, Unspecified abdominal pain R11.0, Nausea CPT copyright 2021 [employer]. All rights reserved. The codes documented in this report are preliminary and upon staff development educator review may be revised to meet current compliance requirements. MD Hanane Levy MD 05/04/2023 8:16:52 AM This report has been signed electronically. Number of Addenda: 0 Note Initiated On: 05/04/2023 7:58 AM
[2023-05-04 08:20] VITALS: BP 126/66; BP 99/64; PULSE 70; RESP 16; O2SAT 95
[2023-05-04 08:25] VITALS: BP 109/64; BP 126/66; PULSE 71; RESP 16; O2SAT 97
[2023-05-04 08:30] VITALS: BP 109/62; BP 126/66; PULSE 67; RESP 16; TEMP 36.3; O2SAT 99
[2023-05-04 08:53] VITALS: BP 126/66
== END 2023-05-04 08:59 | disposition home or self-care (01) ==
LOC: EN 06:05 → AC 06:33
PROVIDERS: PCP Family Medicine; Referring Provider Family Medicine; Visit Provider Surgery
PROC: 0DJ08ZZ Inspection of Upper Intestinal Tract, Via Natural or Artificial Opening Endoscopic (ICD-10-PCS; CPT 43235; principal; 2023-05-04 08:10)
DX: K29.70 Gastritis, unspecified, without bleeding (principal); K21.9 Gastro-esophageal reflux disease without esophagitis; I10 Essential (primary) hypertension; Z79.899 Other long term (current) drug therapy; Z79.82 Long term (current) use of aspirin
CPT/HCPCS: 43239; 88305; 88342; J7120; J2405

== ENCOUNTER → 2023-10-09 | Outpatient (CLI) | payer MEDICARE, OTHER, SELFPAY ==
--- NOTE | 2023-10-09 09:16 | NM_ITS ---
CLINICAL: 67-year-old female with history of abdominal pain. RADIONUCLIDE HEPATOBILIARY SCINTIGRAPHY COMPARISON: None available FINDINGS: Following the intravenous administration of 5.7 mCi of 99m Tc Mebrofenin, hepatobiliary images reveal: 1. Relatively prompt and homogeneous radiopharmaceutical concentration is noted by a normal sized liver. No parenchymal defects are identified. 2. Gallbladder activity is identified at 30 minutes post radiopharmaceutical administration. 3. Small intestinal tract is not visualized during 60 minutes of pre-CCK sequential imaging. Small bowel activity is identified following the administration of cholecystokinin. 4. Washout of the radiopharmaceutical by the hepatic parenchyma appears qualitatively normal. Cholecystokinin (0.02 ug/kg) was administered intravenously over a 30-minute period. The post CCK gallbladder ejection fraction calculated at 20 minutes following Cholecystokinin administration was noted to be 96.0 % (normal greater than 35%). During 30 minutes of post CCK imaging, there is no scintigraphic evidence of reflux of the radiotracer into the common hepatic duct or refilling of the gallbladder. NM/Hepatobilliary Img w/Pharm Int IMPRESSION: 1. NORMAL 99m Tc Mebrofenin hepatobiliary imaging examination with Cholecystokinin. A. A gallbladder ejection fraction calculated to be greater than 35% following the administration of Cholecystokinin makes the probability of functional hepatobiliary disease (gallbladder and/or sphincter of Oddi dyskinesia) and/or organic hepatobiliary disease (chronic acalculous cholecystitis and/or cystic duct syndrome) to be low. (Terry Baker et al, Journal of Nuclear Medicine 32:1695, 1991). Electronically Signed: Vincenzo Dietrich DO at 11:25 EDT ,
== END | disposition home or self-care (01) ==
LOC: NM 09:11
PROVIDERS: PCP Family Medicine; Referring Provider Family Medicine; Visit Provider Family Medicine
DX: R10.9 Unspecified abdominal pain (principal)
CPT/HCPCS: 78227; A9537; J2805

== ENCOUNTER 2024-01-22 07:27 | Inpatient (IN) | payer MEDICARE, OTHER, SELFPAY ==
--- NOTE | 2024-01-14 10:17 | EKG12_ITS ---
Test Reason : PRE OP Blood Pressure : / mmHG Vent. Rate : 056 BPM Atrial Rate : 056 BPM P-R Int : 164 ms QRS Dur : 118 ms QT Int : 416 ms P-R-T Axes : 047 011 032 degrees QTc Int : 401 ms Sinus bradycardia Incomplete right bundle branch block Borderline Confirmed by Justino Vyas ([id number]), editor greeting card JENNIFER JAMES ([id number]) on 01/15/2024 6:02:46 AM Referred By: Klarissa Arteaga Confirmed By:Justino Vyas
[2024-01-22] VITALS (18 sets, daily range): BP systolic 98–146; BP diastolic 49–116; PULSE 61–102; RESP 12–22; TEMP 36.1–36.6; O2SAT 93–99; BMI 34.8
--- OUTSIDE RECORDS SUMMARY | 2024-01-22 05:06 | XMS RPT_ITS | CCD ---
Author Organization [facility] Care Team Providers Care Rvda Master Certified Rv Technician Name Role Phone JENNA EDGAR DO Primary [...] cap(s), 0 Refill(s), 03/27/21 7:47:00 EST, Pharmacy: [facility]/pharmacy #[id number], 165.1, cm, 03/20/21 1:31:00 EST, Height, 118, kg, 03/20/21 1:31:00 EST, Dosing Weight Start Date: 03/20/21 Stop Date: 03/27/21 Status: Ordered famotidine 20 mg oral tablet (2 sources) Histamine-2 Receptor Antagonist Start: 03-20-2021 Pepcid 20 mg oral tablet Dose : 20 mg = 1 tab(s), Oral, qDay, # 30 tab(s), 0 Refill(s), Pharmacy: [facility]/pharmacy #[id number], 165.1, cm, 03/20/21 1:31:00 EST, Height, kg, 03/20/21 1:31:00 EST, Dosing Weight Start Date: 03/20/21 Status: Ordered Start: 01-09-2021 Pepcid 20 mg o ral tablet Dose : 20 mg = 1 tab(s), Oral, qDay, # 30 tab(s), 0 Refill(s), Pharmacy: [facility]/pharmacy #[id number], 165.1, cm, 01/08/21 14:33:00 EDT, Height, kg, 01/08/21 14:33:00 EDT, Dosing Weight Start Date: 01/09/21 Status: Ordered meloxicam 7.5 mg oral tablet (2 sources) Nonsteroidal Anti-inflammatory Drug Start: 03-20-2021 Mobic 7.5 mg oral tablet Dose : 7.5 mg = 1 tab(s), Oral, BIDM, Do not take any other nonsteroidal anti-inflammatories while on meloxicam/Mobic, # 60 tab(s), 0 Refill(s), Pharmacy: [facility]/pharmacy #[id number], 165.1, cm, 03/20/21 1:31:00 EST, Height, kg, 03/20/21 1:31:00 EST, Dosing We... Start Date: 03/20/21 Status: Ordered Start: 01-09-2021 Mobic 7.5 mg o ral tablet Dose : 7.5 mg = 1 tab(s), Oral, BIDM, Do not take any other nonsteroidal anti-inflammatories while on meloxicam/Mobic, # 60 tab(s), 0 Refill(s), Pharmacy: [facility]/pharmacy #[id number], 165.1, cm, 01/08/21 14:33:00 EDT, Height, kg, 01/08/21 14:33:00 EDT, Dosing... Start Date: 01/09/21 Status: Ordered oxyCODONE hydrochloride 5 mg oral tablet (1 source) Opioid Agonist Start: 03-20-2021 End: 03-27-2021 take 1-2 tablets by mouth every four hours as needed for pain oxyCODONE 5 mg oral tablet ( IMMEDIATE release ) See Instructions, PRN as needed for pain, 1-2 tab(s) Oral q4h, # 56 tab(s), 0 Refill(s), 03/27/21 7:48:00 EST, S/P total knee arthroplasty, 118 Start Date: 03/20/21 Stop Date: 03/27/21 Status: Ordered sennosides, [facility] (1 source) Start: 03-20-2021 End: 03-22-2021 take 1 tablet by mouth twice daily Senokot S 50 mg-8.6 mg oral tablet Dose = 2 tab(s), Oral, BID, Take until first bowel movement, then as needed, # 20 tab(s), 0 Refill(s), Pharmacy: [facility]/pharmacy #[id number], 165.1, cm, 03/20/21 1:31:00 EST, Height, kg, 03/20/21 1:31:00 EST, Dosing Weight Start Date: 03/20/21 Stop Date: 03/22/21 Status: Ordered Vitamin D3 (2 sources) Start: 12-21-2020 Vitamin D3 Dos e : 1,000 unit(s) = 1 tab(s), Oral, Daily, 0 Refill(s) Start Date: 12/21/20 Status: Ordered Completed/Discontinued Medications Medication Drug Class(es) [...] Results Test Name Value Interpretation Reference Range Facility .Auto Diffon 03-20-2021 Basophil, Absolute 0.00 10 3/mcL Normal 0.00-0.19 [facility] ([place]) Comment on above: Performed By: #### C BC, ADIFF, ANEU, BMP, ALB #### [address] [address] #### GFR #### [address] [address] Basophils/100 WBC (Bld) 0.1 % Normal 0.0-2.5 [facility] ([place]) Comment on above: Performed By: #### C BC, ADIFF, ANEU, BMP, ALB #### [place] [address] #### GFR #### [address] [address] Eosinophil, Absolute 0.00 10 3/mcL Normal 0.00-0.40 [facility] ([place]) Comment on above: Performed By: #### C BC, ADIFF, ANEU, BMP, ALB #### [place] [address] #### GFR #### [address] [address] Eosinophils/100 WBC (Bld) 0.0 % Normal 0.0-7.0 [facility] ([place]) Comment on above: Performed By: #### C BC, ADIFF, ANEU, BMP, ALB #### [place] [address] #### GFR #### [address] [address] Lymphocyte, Absolute 1.20 10 3/mcL Normal 0.77-3.85 [facility] ([place]) Comment on above: Performed By: #### C BC, ADIFF, ANEU, BMP, ALB #### [address] [address] #### GFR #### [address] [address] Lymphocytes/100 WBC (Bld) 6.8 % Low 10.0-50.0 [facility] ([place]) Comment on above: Performed By: #### C BC, ADIFF, ANEU, BMP, ALB #### [place] [address] #### GFR #### [address] [address] Monocyte, Absolute 0.90 10 3/mcL Normal 0.15-1.00 [facility] ([place]) Comment on above: Performed By: #### C BC, ADIFF, ANEU, BMP, ALB #### [place] [address] #### GFR #### [address] [address] Monocytes/100 WBC (Bld) 5.0 % Normal 1.7-13.0 [facility] ([place]) Comment on above: Performed By: #### C BC, ADIFF, ANEU, BMP, ALB #### [place] [address] #### GFR #### [address] [address] Neutrophils/100 WBC (Bld) 88.1 % High 37.0-80.0 [facility] ([place]) Comment on above: Performed By: #### C BC, ADIFF, ANEU, BMP, ALB #### [place] [address] #### GFR #### [address] [address] .GFRon 03-20-2021 GFR 109 ml/min/1.73sqm Normal [facility] ([place]) Comment on above: Result Comment: GFR Population mean for , Non- Americans Ages 20-29 = 116 mL/min/1.73 sq.m. Ages 30-39 = 107 mL/min/1.73 sq.m. Ages 40-49 = 99 mL/min/1.73 sq.m. Ages 50-59 = 93 mL/min/1.73 sq.m. Ages 60-69 = 85 mL/min/1.73 sq.m. Ages 70+ = 75 mL/min/1.73 sq.m. Chronic Kidney Disease: Less than 60 mL/min/1.73 square meters End Stage Renal Disease: Less than 15 mL/min/1.73 square meters Performed By: #### C BC, ADIFF, ANEU, BMP, ALB #### [address] [address] #### GFR #### [address] [address] GFR Non- 90 ml/min/1.73sqm Normal [facility] ([place]) Comment on above: Result Comment: GFR Population mean for , Non- Americans Ages 20-29 = 116 mL/min/1.73 sq.m. Ages 30-39 = 107 mL/min/1.73 sq.m. Ages 40-49 = 99 mL/min/1.73 sq.m. Ages 50-59 = 93 mL/min/1.73 sq.m. Ages 60-69 = 85 mL/min/1.73 sq.m. Ages 70+ = 75 mL/min/1.73 sq.m. Chronic Kidney Disease: Less than 60 mL/min/1.73 square meters End Stage Renal Disease: Less than 15 mL/min/1.73 square meters Performed By: #### C BC, ADIFF, ANEU, BMP, ALB #### [address] [address] #### GFR #### [address] [address] .NEUABSon 03-20-2021 Neutrophil, Absolute 15.30 10 3/mcL High 2.85-6.16 [facility] ([place]) Comment on above: Performed By: #### C BC, ADIFF, ANEU, BMP, ALB #### [place] [address] #### GFR #### [address] [address] BMPon 03-20-2021 BUN/Creatinine Ratio 20 ratio Normal 7-27 [facility] ([place]) Comment on above: Performed By: #### C BC, ADIFF, ANEU, BMP, ALB #### [address] [address] #### GFR #### [place] [address] Calcium [Mass/Vol] 8.9 mg/dL Normal 8.4-10.2 [facility] ([place]) Comment on above: Performed By: #### C BC, ADIFF, ANEU, BMP, ALB #### [place] [address] #### GFR #### [place] [address] Chloride [Moles/Vol] 109 mmol/L High 98-107 [facility] ([place]) Comment on above: Performed By: #### C BC, ADIFF, ANEU, BMP, ALB #### [place] [address] #### GFR #### [place] [address] CO2 [Moles/Vol] 24 mmol/L Normal 23-31 [facility] ([place]) Comment on above: Performed By: #### C BC, ADIFF, ANEU, BMP, ALB #### [place] [address] #### GFR #### [place] [address] Creatinine [Mass/Vol] 0.66 mg/dL Normal 0.55-1.02 [facility] ([place]) Comment on above: Performed By: #### C BC, ADIFF, ANEU, BMP, ALB #### [place] [address] #### GFR #### [place] [address] Electrolyte Balance 11.0 mEq/L Normal [facility] ([place]) Comment on above: Performed By: #### C BC, ADIFF, ANEU, BMP, ALB #### [address] [address] #### GFR #### [address] [address] Glucose [Mass/Vol] 188 mg/dL High 80-115 [facility] ([place]) Comment on above: Performed By: #### C BC, ADIFF, ANEU, BMP, ALB #### [address] [address] #### GFR #### [address] [address] Potassium [Moles/Vol] 4.1 mmol/L Normal 3.5-5.1 [facility] ([place]) Comment on above: Performed By: #### C BC, ADIFF, ANEU, BMP, ALB #### [place] [address] #### GFR #### [address] [address] Sodium [Moles/Vol] 144 mmol/L Normal 136-145 [facility] ([place]) Comment on above: Performed By: #### C BC, ADIFF, ANEU, BMP, ALB #### [address] [address] #### GFR #### [place] [address] Urea nitrogen [Mass/Vol] 13 mg/dL Normal 7-18 [facility] ([place]) Comment on above: Performed By: #### C BC, ADIFF, ANEU, BMP, ALB #### [place] [address] #### GFR #### [address] [address] CBCon 03-20-2021 Erythrocyte distribution width (RBC) [Ratio] 14.4 % Normal 11.5-14.5 [facility] ([place]) Comment on above: Performed By: #### C BC, ADIFF, ANEU, BMP, ALB #### [place] [address] #### GFR #### [place] [address] Hematocrit (Bld) [Volume fraction] 32.0 % Low 37.0-47.0 [facility] ([place]) Comment on above: Performed By: #### C BC, ADIFF, ANEU, BMP, ALB #### [place] [address] #### GFR #### [place] [address] Hgb 10.5 G/dL Low 12.0-16.0 [facility] ([place]) Comment on above: Performed By: #### C BC, ADIFF, ANEU, BMP, ALB #### [place] [address] #### GFR #### [place] [address] MCH (RBC) [Entitic mass] 29.8 pg Normal 27.0-31.2 [facility] ([place]) Comment on above: Performed By: #### C BC, ADIFF, ANEU, BMP, ALB #### [place] [address] #### GFR #### [place] [address] MCHC 32.8 G/dL Low 33.0-37.0 [facility] ([place]) Comment on above: Performed By: #### C BC, ADIFF, ANEU, BMP, ALB #### [place] [address] #### GFR #### [place] [address] MCV (RBC) [Entitic vol] 90.6 fL Normal 80.0-94.0 [facility] ([place]) Comment on above: Performed By: #### C BC, ADIFF, ANEU, BMP, ALB #### [place] [address] #### GFR #### [place] [address] Platelet 177 10 3/mcL Normal 130-400 [facility] ([place]) Comment on above: Performed By: #### C BC, ADIFF, ANEU, BMP, ALB #### [place] [address] #### GFR #### [place] [address] Platelet mean volume (Bld) [Entitic vol] 12.5 fL High 7.4-10.4 [facility] ([place]) Comment on above: Performed By: #### C BC, ADIFF, ANEU, BMP, ALB #### [place] [address] #### GFR #### [place] [address] RBC 3.54 10 6/mcL Low 4.20-5.40 [facility] ([place]) Comment on above: Performed By: #### C BC, ADIFF, ANEU, BMP, ALB #### [place] [address] #### GFR #### [place] [address] WBC 17.30 10 3/mcL High 4.60-10.80 [facility] ([place]) Comment on above: Performed By: #### C BC, ADIFF, ANEU, BMP, ALB #### [place] [address] #### GFR #### [place] [address] LABORATORYOrdered By: Socorro Currie on 03-20-2021 Basophil, Absolute 0.00 103/mcL Invalid Interpretation Code 0.00 - 0.19 10^3/mcL AO Auto Heme SS Basophils/100 WBC (Bld) 0.1 % Invalid Interpretation Code 0.0 - 2.5 % AO Auto Heme SS Calcium [Mass/Vol] 8.9 mg/dL Invalid Interpretation Code 8.4 - 10.2 mg/dL AO ADM SS Chloride [Moles/Vol] 109 mmol/L Invalid Interpretation Code 98 - 107 mmol/L AO ADM SS CO2 [Moles/Vol] 24 mmol/L Invalid Interpretation Code 23 - 31 mmol/L AO ADM SS Creatinine [Mass/Vol] 0.66 mg/dL Invalid Interpretation Code 0.55 - 1.02 mg/dL AO ADM SS Electrolyte Balance 11.0 mEq/L Invalid Interpretation Code AO ADM SS Eosinophil, Absolute 0.00 103/mcL Invalid Interpretation Code 0.00 - 0.40 10^3/mcL AO Auto Heme SS Eosinophils/100 WBC (Bld) 0.0 % Invalid Interpretation Code 0.0 - 7.0 % AO Auto Heme SS Erythrocyte distribution width (RBC) [Ratio] 14.4 % Invalid Interpretation Code 11.5 - 14.5 % AO Auto Heme SS Glucose [Mass/Vol] 188 mg/dL Invalid Interpretation Code 80 - 115 mg/dL AO ADM SS Hematocrit (Bld) [Volume fraction] 32.0 % Invalid Interpretation Code 37.0 - 47.0 % AO Auto Heme SS Hemoglobin (Bld) [Mass/Vol] 10.5 G/dL Invalid Interpretation Code 12.0 - 16.0 G/dL AO Auto Heme SS Lymphocyte, Absolute 1.20 103/mcL Invalid Interpretation Code 0.77 - 3.85 10^3/mcL AO Auto Heme SS Lymphocytes/100 WBC (Bld) 6.8 % Invalid Interpretation Code 10.0 - 50.0 % AO Auto Heme SS MCH (RBC) [Entitic mass] 29.8 pg Invalid Interpretation Code 27.0 - 31.2 pg AO Auto Heme SS MCHC (RBC) [Mass/Vol] 32.8 G/dL Invalid Interpretation Code 33.0 - 37.0 G/dL AO Auto Heme SS MCV (RBC) [Entitic vol] 90.6 fL Invalid Interpretation Code 80.0 - 94.0 fL AO Auto Heme SS Monocyte, Absolute 0.90 103/mcL Invalid Interpretation Code 0.15 - 1.00 10^3/mcL AO Auto Heme SS Monocytes/100 WBC (Bld) 5.0 % Invalid Interpretation Code 1.7 - 13.0 % AO Auto Heme SS Neutrophil, Absolute 15.30 103/mcL Invalid Interpretation Code 2.85 - 6.16 10^3/mcL AO Auto Heme SS Neutrophils/100 WBC (Bld) 88.1 % Invalid Interpretation Code 37.0 - 80.0 % AO Auto Heme SS Platelet mean volume (Bld) [Entitic vol] 12.5 fL Invalid Interpretation Code 7.4 - 10.4 fL AO Auto Heme SS Platelets (Bld) [#/Vol] 177 103/mcL Invalid Interpretation Code 130 - 400 10^3/mcL AO Auto Heme SS Potassium [Moles/Vol] 4.1 mmol/L Invalid Interpretation Code 3.5 - 5.1 mmol/L AO ADM SS RBC (Bld) [#/Vol] 3.54 106/mcL Invalid Interpretation Code 4.20 - 5.40 10^6/mcL AO Auto Heme SS Sodium [Moles/Vol] 144 mmol/L Invalid Interpretation Code 136 - 145 mmol/L AO ADM SS Urea nitrogen [Mass/Vol] 13 mg/dL Invalid Interpretation Code 7 - 18 mg/dL AO ADM SS Urea nitrogen/Creatinine [Mass ratio] 20 ratio Invalid Interpretation Code 7 - 27 ratio AO ADM SS WBC (Bld) [#/Vol] 17.30 103/mcL Invalid Interpretation Code 4.60 - 10.80 10^3/mcL AO Auto Heme SS LABORATORYOrdered By: SYSTEM SYSTEM on 03-20-2021 GFR 109 ml/min/1.73sqm Invalid Interpretation Code AO Chemistry S GFR Non- 90 ml/min/1.73sqm Invalid Interpretation Code AO Chemistry S XR KNEE 1 OR 2 VIEWS RIGHTon 03-19-2021 XR KNEE 1 OR 2 VIEWS RIGHT ORIGINAL EXAMINATION: TWO XRAY VIEWS OF THE RIGHT KNEE 03/19/2021 5:45 pm COMPARISON: None. HISTORY: ORDERING SYSTEM PROVIDED HISTORY: Reason for Exam: Status Post Arthroplasty IMPRESSION: Effusion with fluid levels noted within the joint space. Soft tissue swelling is noted overlying the knee. Arthroplasty hardware is in place with no evidence of hardware fracture or loosening. Interpreted by: Pawna Bates MD Preliminary Report By: Pawan Bates MD Electronically signed By Pawan Bates MD Dictated Date: 03/19/2021 6:58:19 PM Prelim Date: 03/19/2021 7:02:10 PM Sign Date: 03/19/2021 7:02:10 PM Ordering Provider: JOSE HICKEY [facility] ([place]) .Auto Diffon 03-01-2021 Basophil, Absolute 0.10 10 3/mcL Normal 0.00-0.19 [facility] ([place]) Comment on above: Performed By: #### C BC, ADIFF, ANEU, BMP, ALB #### [place] [address] #### GFR #### [address] [address] Basophils/100 WBC (Bld) 0.8 % Normal 0.0-2.5 [facility] ([place]) Comment on above: Performed By: #### C BC, ADIFF, ANEU, BMP, ALB #### [place] [address] #### GFR #### [address] [address] Eosinophil, Absolute 0.40 10 3/mcL Normal 0.00-0.40 [facility] ([place]) Comment on above: Performed By: #### C BC, ADIFF, ANEU, BMP, ALB #### [place] [address] #### GFR #### [address] [address] Eosinophils/100 WBC (Bld) 4.4 % Normal 0.0-7.0 [facility] ([place]) Comment on above: Performed By: #### C BC, ADIFF, ANEU, BMP, ALB #### [place] [address] #### GFR #### [address] [address] Lymphocyte, Absolute 2.40 10 3/mcL Normal 0.77-3.85 [facility] ([place]) Comment on above: Performed By: #### C BC, ADIFF, ANEU, BMP, ALB #### [place] [address] #### GFR #### [address] [address] Lymphocytes/100 WBC (Bld) 25.7 % Normal 10.0-50.0 [facility] ([place]) Comment on above: Performed By: #### C BC, ADIFF, ANEU, BMP, ALB #### [address] [address] #### GFR #### [address] [address] Monocyte, Absolute 0.80 10 3/mcL Normal 0.15-1.00 [facility] ([place]) Comment on above: Performed By: #### C BC, ADIFF, ANEU, BMP, ALB #### [address] [address] #### GFR #### [address] [address] Monocytes/100 WBC (Bld) 8.2 % Normal 1.7-13.0 [facility] ([place]) Comment on above: Performed By: #### C BC, ADIFF, ANEU, BMP, ALB #### [address] [address] #### GFR #### [address] [address] Neutrophils/100 WBC (Bld) 60.9 % Normal 37.0-80.0 [facility] ([place]) Comment on above: Performed By: #### C BC, ADIFF, ANEU, BMP, ALB #### [address] [address] #### GFR #### [address] [address] .GFRon 03-01-2021 GFR 113 ml/min/1.73sqm Normal [facility] ([place]) Comment on above: Result Comment: GFR Population mean for , Non- Americans Ages 20-29 = 116 mL/min/1.73 sq.m. Ages 30-39 = 107 mL/min/1.73 sq.m. Ages 40-49 = 99 mL/min/1.73 sq.m. Ages 50-59 = 93 mL/min/1.73 sq.m. Ages 60-69 = 85 mL/min/1.73 sq.m. Ages 70+ = 75 mL/min/1.73 sq.m. Chronic Kidney Disease: Less than 60 mL/min/1.73 square meters End Stage Renal Disease: Less than 15 mL/min/1.73 square meters Performed By: #### C BC, ADIFF, ANEU, BMP, ALB #### [address] [address] #### GFR #### [address] [address] GFR Non- 93 ml/min/1.73sqm Normal [facility] ([place]) Comment on above: Result Comment: GFR Population mean for , Non- Americans Ages 20-29 = 116 mL/min/1.73 sq.m. Ages 30-39 = 107 mL/min/1.73 sq.m. Ages 40-49 = 99 mL/min/1.73 sq.m. Ages 50-59 = 93 mL/min/1.73 sq.m. Ages 60-69 = 85 mL/min/1.73 sq.m. Ages 70+ = 75 mL/min/1.73 sq.m. Chronic Kidney Disease: Less than 60 mL/min/1.73 square meters End Stage Renal Disease: Less than 15 mL/min/1.73 square meters Performed By: #### C BC, ADIFF, ANEU, BMP, ALB #### [place] [address] #### GFR #### [address] [address] .NEUABSon 03-01-2021 Neutrophil, Absolute 5.70 10 3/mcL Normal 2.85-6.16 [facility] ([place]) Comment on above: Performed By: #### C BC, ADIFF, ANEU, BMP, ALB #### [address] [address] #### GFR #### [address] [address] ALBon 03-01-2021 Albumin Level 3.3 G/dL Low 3.4-4.8 [facility] ([place]) Comment on above: Performed By: #### C BC, ADIFF, ANEU, BMP, ALB #### [address] [address] #### GFR #### [address] [address] BMPon 03-01-2021 BUN/Creatinine Ratio 20 ratio Normal 7-27 [facility] ([place]) Comment on above: Performed By: #### C BC, ADIFF, ANEU, BMP, ALB #### [address] [address] #### GFR #### [place] [address] Calcium [Mass/Vol] 8.7 mg/dL Normal 8.4-10.2 [facility] ([place]) Comment on above: Performed By: #### C BC, ADIFF, ANEU, BMP, ALB #### [place] [address] #### GFR #### [place] [address] Chloride [Moles/Vol] 110 mmol/L High 98-107 [facility] ([place]) Comment on above: Performed By: #### C BC, ADIFF, ANEU, BMP, ALB #### [place] [address] #### GFR #### [place] [address] CO2 [Moles/Vol] 25 mmol/L Normal 23-31 [facility] ([place]) Comment on above: Performed By: #### C BC, ADIFF, ANEU, BMP, ALB #### [place] [address] #### GFR #### [place] [address] Creatinine [Mass/Vol] 0.64 mg/dL Normal 0.55-1.02 [facility] ([place]) Comment on above: Performed By: #### C BC, ADIFF, ANEU, BMP, ALB #### [address] [address] #### GFR #### [place] [address] Electrolyte Balance 9.0 mEq/L Normal [facility] ([place]) Comment on above: Performed By: #### C BC, ADIFF, ANEU, BMP, ALB #### [address] [address] #### GFR #### [address] [address] Glucose [Mass/Vol] 101 mg/dL Normal 80-115 [facility] ([place]) Comment on above: Performed By: #### C BC, ADIFF, ANEU, BMP, ALB #### [address] [address] #### GFR #### [address] [address] Potassium [Moles/Vol] 3.8 mmol/L Normal 3.5-5.1 [facility] ([place]) Comment on above: Performed By: #### C BC, ADIFF, ANEU, BMP, ALB #### [place] [address] #### GFR #### [address] [address] Sodium [Moles/Vol] 144 mmol/L Normal 136-145 [facility] ([place]) Comment on above: Performed By: #### C BC, ADIFF, ANEU, BMP, ALB #### [address] [address] #### GFR #### [address] [address] Urea nitrogen [Mass/Vol] 13 mg/dL Normal 7-18 [facility] ([place]) Comment on above: Performed By: #### C BC, ADIFF, ANEU, BMP, ALB #### [address] [address] #### GFR #### [address] [address] CBCon 03-01-2021 Erythrocyte distribution width (RBC) [Ratio] 15.1 % High 11.5-14.5 [facility] ([place]) Comment on above: Performed By: #### C BC, ADIFF, ANEU, BMP, ALB #### [place] [address] [place], [place] [address] #### GFR #### [place] [address] Hematocrit (Bld) [Volume fraction] 36.1 % Low 37.0-47.0 [facility] ([place]) Comment on above: Performed By: #### C BC, ADIFF, ANEU, BMP, ALB #### [place] [address] #### GFR #### [place] [address] Hgb 11.8 G/dL Low 12.0-16.0 [facility] ([place]) Comment on above: Performed By: #### C BC, ADIFF, ANEU, BMP, ALB #### [place] [address] #### GFR #### [place] [address] MCH (RBC) [Entitic mass] 30.1 pg Normal 27.0-31.2 [facility] ([place]) Comment on above: Performed By: #### C BC, ADIFF, ANEU, BMP, ALB #### [place] [address] #### GFR #### [place] [address] MCHC 32.6 G/dL Low 33.0-37.0 [facility] ([place]) Comment on above: Performed By: #### C BC, ADIFF, ANEU, BMP, ALB #### [place] [address] #### GFR #### [place] [address] MCV (RBC) [Entitic vol] 92.4 fL Normal 80.0-94.0 [facility] ([place]) Comment on above: Performed By: #### C BC, ADIFF, ANEU, BMP, ALB #### [place] [address] #### GFR #### [place] [address] Platelet 185 10 3/mcL Normal 130-400 [facility] ([place]) Comment on above: Performed By: #### C BC, ADIFF, ANEU, BMP, ALB #### [place] [address] #### GFR #### [place] [address] Platelet mean volume (Bld) [Entitic vol] 12.8 fL High 7.4-10.4 [facility] ([place]) Comment on above: Performed By: #### C BC, ADIFF, ANEU, BMP, ALB #### [place] [address] #### GFR #### [place] [address] RBC 3.91 10 6/mcL Low 4.20-5.40 [facility] ([place]) Comment on above: Performed By: #### C BC, ADIFF, ANEU, BMP, ALB #### [place] [address] #### GFR #### [place] [address] WBC 9.40 10 3/mcL Normal 4.60-10.80 [facility] ([place]) Comment on above: Performed By: #### C BC, ADIFF, ANEU, BMP, ALB #### [place] [address] #### GFR #### [place] [address] CT KNEE W/O CONTRAST RIGHTon 03-01-2021 CT KNEE W/O CONTRAST RIGHT ORIGINAL EXAMINATION: CT OF THE RIGHT KNEE WITHOUT CONTRAST 03/01/2021 3:35 pm TECHNIQUE: CT of the right knee was performed without the administration of intravenous contrast. Multiplanar reformatted images are provided for review. Dose modulation, iterative reconstruction, and/or weight based adjustment of the mA/kV was utilized to reduce the radiation dose to as low as reasonably achievable. COMPARISON: None. HISTORY ORDERING SYSTEM PROVIDED HISTORY: Reason for Exam: VARUS DEFORMITY NOT ELSEWHERE CLASSIFIED. Primary osteoarthritis of right knee. FINDINGS: No acute fracture or dislocation is identified. Osseous mineralization is within normal limits. No aggressive osseous lesions are noted within the provided field of view. Moderate to severe osteoarthrosis is noted of the medial femorotibial compartment with joint space narrowing, subchondral sclerosis, and large marginal osteophytes. A meniscal ossicle is noted of posterior horn medial meniscus. Mild to moderate osteoarthrosis is noted of the lateral femorotibial compartment with joint space narrowing and sizable marginal osteophytes. Moderate to severe osteoarthrosis is present of the patellofemoral compartment with joint space narrowing and large marginal osteophytes. A trace volume knee joint effusion is present. An intracapsular osteochondral body of the posterior aspect of the lateral femorotibial compartment near the intercondylar notch measures 7 mm transverse dimension. Additional mild proximal tibiofibular degenerative changes are present with subchondral cystic change. Provided images of the pelvis and right hip exhibit no acute osseous abnormalities or aggressive osseous lesion. A small synovial herniation pit is noted of the femoral head-neck junction. Provided images of the right ankle exhibit no acute abnormalities or aggressive osseous lesions. No significant muscular atrophy is evident. Visualized tendons are grossly intact. Ligaments are poorly evaluated on this examination. Visualized intra-abdominal and pelvic contents exhibit no acute abnormalities. There is sigmoid colon diverticulosis without acute diverticulitis. IMPRESSION: 1. No acute osseous abnormalities or aggressive osseous lesions. 2. Tricompartmental osteoarthrosis, most pronounced of the medial femorotibial and patellofemoral compartments. Meniscal ossicle of posterior horn medial meniscus. 7 mm intracapsular osteochondral body of posterior aspect of lateral femorotibial compartment. 3. Trace volume knee joint effusion. Interpreted by: Tay Sandra DO Preliminary Report By: Tay Sandra DO Electronically signed By Tay Sandra DO Dictated Date: 03/01/2021 4:12:14 PM Prelim Date: 03/01/2021 4:20:23 PM Sign Date: 03/01/2021 4:20:23 PM Ordering Provider: JOSE HICKEY [facility] ([place]) LABORATORYOrdered By: Will Prescott on 03-01-2021 Albumin BCP dye [Mass/Vol] 3.3 G/dL Invalid Interpretation Code 3.4 - 4.8 G/dL AO ADM SS Calcium [Mass/Vol] 8.7 mg/dL Invalid Interpretation Code 8.4 - 10.2 mg/dL AO ADM SS Chloride [Moles/Vol] 110 mmol/L Invalid Interpretation Code 98 - 107 mmol/L AO ADM SS CO2 [Moles/Vol] 25 mmol/L Invalid Interpretation Code 23 - 31 mmol/L AO ADM SS Creatinine [Mass/Vol] 0.64 mg/dL Invalid Interpretation Code 0.55 - 1.02 mg/dL AO ADM SS Electrolyte Balance 9.0 mEq/L Invalid Interpretation Code AO ADM SS Glucose [Mass/Vol] 101 mg/dL Invalid Interpretation Code 80 - 115 mg/dL AO ADM SS Potassium [Moles/Vol] 3.8 mmol/L Invalid Interpretation Code 3.5 - 5.1 mmol/L AO ADM SS Sodium [Moles/Vol] 144 mmol/L Invalid Interpretation Code 136 - 145 mmol/L AO ADM SS Urea nitrogen [Mass/Vol] 13 mg/dL Invalid Interpretation Code 7 - 18 mg/dL AO ADM SS Urea nitrogen/Creatinine [Mass ratio] 20 ratio Invalid Interpretation Code 7 - 27 ratio AO ADM SS LABORATORYOrdered By: Rogelio Steven on 03-01-2021 Basophil, Absolute 0.10 103/mcL Invalid Interpretation Code 0.00 - 0.19 10^3/mcL AO Auto Heme SS Basophils/100 WBC (Bld) 0.8 % Invalid Interpretation Code 0.0 - 2.5 % AO Auto Heme SS Eosinophil, Absolute 0.40 103/mcL Invalid Interpretation Code 0.00 - 0.40 10^3/mcL AO Auto Heme SS Eosinophils/100 WBC (Bld) 4.4 % Invalid Interpretation Code 0.0 - 7.0 % AO Auto Heme SS Erythrocyte distribution width (RBC) [Ratio] 15.1 % Invalid Interpretation Code 11.5 - 14.5 % AO Auto Heme SS Hematocrit (Bld) [Volume fraction] 36.1 % Invalid Interpretation Code 37.0 - 47.0 % AO Auto Heme SS Hemoglobin (Bld) [Mass/Vol] 11.8 G/dL Invalid Interpretation Code 12.0 - 16.0 G/dL AO Auto Heme SS Lymphocyte, Absolute 2.40 103/mcL Invalid Interpretation Code 0.77 - 3.85 10^3/mcL AO Auto Heme SS Lymphocytes/100 WBC (Bld) 25.7 % Invalid Interpretation Code 10.0 - 50.0 % AO Auto Heme SS MCH (RBC) [Entitic mass] 30.1 pg Invalid Interpretation Code 27.0 - 31.2 pg AO Auto Heme SS MCHC (RBC) [Mass/Vol] 32.6 G/dL Invalid Interpretation Code 33.0 - 37.0 G/dL AO Auto Heme SS MCV (RBC) [Entitic vol] 92.4 fL Invalid Interpretation Code 80.0 - 94.0 fL AO Auto Heme SS Monocyte, Absolute 0.80 103/mcL Invalid Interpretation Code 0.15 - 1.00 10^3/mcL AO Auto Heme SS Monocytes/100 WBC (Bld) 8.2 % Invalid Interpretation Code 1.7 - 13.0 % AO Auto Heme SS Neutrophil, Absolute 5.70 103/mcL Invalid Interpretation Code 2.85 - 6.16 10^3/mcL AO Auto Heme SS Neutrophils/100 WBC (Bld) 60.9 % Invalid Interpretation Code 37.0 - 80.0 % AO Auto Heme SS Platelet mean volume (Bld) [Entitic vol] 12.8 fL Invalid Interpretation Code 7.4 - 10.4 fL AO Auto Heme SS Platelets (Bld) [#/Vol] 185 103/mcL Invalid Interpretation Code 130 - 400 10^3/mcL AO Auto Heme SS RBC (Bld) [#/Vol] 3.91 106/mcL Invalid Interpretation Code 4.20 - 5.40 10^6/mcL AO Auto Heme SS WBC (Bld) [#/Vol] 9.40 103/mcL Invalid Interpretation Code 4.60 - 10.80 10^3/mcL AO Auto Heme SS LABORATORYOrdered By: SYSTEM SYSTEM on 03-01-2021 GFR 113 ml/min/1.73sqm Invalid Interpretation Code AO Chemistry S GFR Non- 93 ml/min/1.73sqm Invalid Interpretation Code AO Chemistry S .Auto Diffon 01-09-2021 Basophil, Absolute 0.00 10 3/mcL Normal 0.00-0.19 [facility] ([place]) Comment on above: Performed By: #### C BC, ADIFF, ANEU #### [place] [id number] [place], [place] [address] #### BMP, GFR #### [address] [address] Basophils/100 WBC (Bld) 0.1 % Normal 0.0-2.5 [facility] ([place]) Comment on above: Performed By: #### C BC, ADIFF, ANEU #### [place] [address] #### BMP, GFR #### [address] [address] Eosinophil, Absolute 0.00 10 3/mcL Normal 0.00-0.40 [facility] ([place]) Comment on above: Performed By: #### C BC, ADIFF, ANEU #### [place] [address] #### BMP, GFR #### [address] [address] Eosinophils/100 WBC (Bld) 0.0 % Normal 0.0-7.0 [facility] ([place]) Comment on above: Performed By: #### C BC, ADIFF, ANEU #### [place] [address] #### BMP, GFR #### [address] [address] Lymphocyte, Absolute 1.50 10 3/mcL Normal 0.77-3.85 [facility] ([place]) Comment on above: Performed By: #### C BC, ADIFF, ANEU #### [place] [address] #### BMP, GFR #### [address] [address] Lymphocytes/100 WBC (Bld) 8.1 % Low 10.0-50.0 [facility] ([place]) Comment on above: Performed By: #### C BC, ADIFF, ANEU #### [place] [address] #### BMP, GFR #### [address] [address] Monocyte, Absolute 1.00 10 3/mcL Normal 0.15-1.00 [facility] ([place]) Comment on above: Performed By: #### C BC, ADIFF, ANEU #### [address] [address] #### BMP, GFR #### [address] [address] Monocytes/100 WBC (Bld) 5.5 % Normal 1.7-13.0 [facility] ([place]) Comment on above: Performed By: #### C BC, ADIFF, ANEU #### [address] [address] #### BMP, GFR #### [address] [address] Neutrophils/100 WBC (Bld) 86.3 % High 37.0-80.0 [facility] ([place]) Comment on above: Performed By: #### C BC, ADIFF, ANEU #### [address] [address] #### BMP, GFR #### [address] [address] .GFRon 01-09-2021 GFR Non- 75 ml/min/1.73sqm Normal [facility] ([place]) Comment on above: Result Comment: GFR Population mean for , Non- Americans Ages 20-29 = 116 mL/min/1.73 sq.m. Ages 30-39 = 107 mL/min/1.73 sq.m. Ages 40-49 = 99 mL/min/1.73 sq.m. Ages 50-59 = 93 mL/min/1.73 sq.m. Ages 60-69 = 85 mL/min/1.73 sq.m. Ages 70+ = 75 mL/min/1.73 sq.m. Chronic Kidney Disease: Less than 60 mL/min/1.73 square meters End Stage Renal Disease: Less than 15 mL/min/1.73 square meters Performed By: #### C BC, ADIFF, ANEU, BMP, ALB #### [address] [address] #### GFR #### [address] [address] GFR 91 ml/min/1.73sqm Normal [facility] ([place]) Comment on above: Result Comment: GFR Population mean for , Non- Americans Ages 20-29 = 116 mL/min/1.73 sq.m. Ages 30-39 = 107 mL/min/1.73 sq.m. Ages 40-49 = 99 mL/min/1.73 sq.m. Ages 50-59 = 93 mL/min/1.73 sq.m. Ages 60-69 = 85 mL/min/1.73 sq.m. Ages 70+ = 75 mL/min/1.73 sq.m. Chronic Kidney Disease: Less than 60 mL/min/1.73 square meters End Stage Renal Disease: Less than 15 mL/min/1.73 square meters Performed By: #### C BC, ADIFF, ANEU, BMP, ALB #### [place] [address] #### GFR #### [place] [address] .NEUABSon 01-09-2021 Neutrophil, Absolute 15.90 10 3/mcL High 2.85-6.16 [facility] ([place]) Comment on above: Performed By: #### C BC, ADIFF, ANEU, BMP, ALB #### [place] [address] #### GFR #### [address] [address] BMPon 01-09-2021 BUN/Creatinine Ratio 21 ratio Normal 7-27 [facility] ([place]) Comment on above: Performed By: #### C BC, ADIFF, ANEU, BMP, ALB #### [place] [address] #### GFR #### [place] [address] Calcium [Mass/Vol] 8.7 mg/dL Normal 8.4-10.2 [facility] ([place]) Comment on above: Performed By: #### C BC, ADIFF, ANEU, BMP, ALB #### [place] [address] #### GFR #### [address] [address] Chloride [Moles/Vol] 108 mmol/L High 98-107 [facility] ([place]) Comment on above: Performed By: #### C BC, ADIFF, ANEU, BMP, ALB #### [address] [address] #### GFR #### [address] [address] CO2 [Moles/Vol] 25 mmol/L Normal 23-31 [facility] ([place]) Comment on above: Performed By: #### C BC, ADIFF, ANEU, BMP, ALB #### [address] [address] #### GFR #### [address] [address] Creatinine [Mass/Vol] 0.77 mg/dL Normal 0.55-1.02 [facility] ([place]) Comment on above: Performed By: #### C BC, ADIFF, ANEU, BMP, ALB #### [address] [address] #### GFR #### [address] [address] Electrolyte Balance 10.0 mEq/L Normal [facility] ([place]) Comment on above: Performed By: #### C BC, ADIFF, ANEU, BMP, ALB #### [address] [address] #### GFR #### [address] [address] Glucose [Mass/Vol] 152 mg/dL High 80-115 [facility] ([place]) Comment on above: Performed By: #### C BC, ADIFF, ANEU, BMP, ALB #### [address] [address] #### GFR #### [address] [address] Potassium [Moles/Vol] 4.1 mmol/L Normal 3.5-5.1 [facility] ([place]) Comment on above: Performed By: #### C BC, ADIFF, ANEU, BMP, ALB #### [address] [address] #### GFR #### [address] [address] Sodium [Moles/Vol] 143 mmol/L Normal 136-145 [facility] ([place]) Comment on above: Performed By: #### C BC, ADIFF, ANEU, BMP, ALB #### [address] [address] #### GFR #### [address] [address] Urea nitrogen [Mass/Vol] 16 mg/dL Normal 7-18 [facility] ([place]) Comment on above: Performed By: #### C BC, ADIFF, ANEU, BMP, ALB #### [address] [address] #### GFR #### [address] [address] CBCon 01-09-2021 Erythrocyte distribution width (RBC) [Ratio] 15.9 % High 11.5-14.5 [facility] ([place]) Comment on above: Performed By: #### C BC, ADIFF, ANEU #### [address] [address] #### BMP, GFR #### [address] [address] Hematocrit (Bld) [Volume fraction] 31.6 % Low 37.0-47.0 [facility] ([place] Comment on above: Performed By: #### C BC, ADIFF, ANEU #### [address] [address] #### BMP, GFR #### [address] [address] Hgb 10.2 G/dL Low 12.0-16.0 [facility] ([place] Comment on above: Performed By: #### C BC, ADIFF, ANEU #### [address] [address] #### BMP, GFR #### [address] [address] MCH (RBC) [Entitic mass] 29.7 pg Normal 27.0-31.2 [facility] ([place] Comment on above: Performed By: #### C BC, ADIFF, ANEU #### [place] [address] #### BMP, GFR #### [place] [address] MCHC 32.4 G/dL Low 33.0-37.0 [facility] ([place]) Comment on above: Performed By: #### C BC, ADIFF, ANEU #### [place] [address] #### BMP, GFR #### [place] [address] MCV (RBC) [Entitic vol] 91.9 fL Normal 80.0-94.0 [facility] ([place] Comment on above: Performed By: #### C BC, ADIFF, ANEU #### [place] [address] #### BMP, GFR #### [place] [address] Platelet 179 10 3/mcL Normal 130-400 [facility] ([place] Comment on above: Performed By: #### C BC, ADIFF, ANEU #### [place] [address] #### BMP, GFR #### [place] [address] Platelet mean volume (Bld) [Entitic vol] 13.1 fL High 7.4-10.4 [facility] ([place] Comment on above: Performed By: #### C BC, ADIFF, ANEU #### [place] [address] #### BMP, GFR #### [place] [address] RBC 3.44 10 6/mcL Low 4.20-5.40 [facility] ([place] Comment on above: Performed By: #### C BC, ADIFF, ANEU #### [address] [address] #### BMP, GFR #### [address] [address] WBC 18.40 10 3/mcL High 4.60-10.80 [facility] ([place] Comment on above: Performed By: #### C BC, ADIFF, ANEU #### [address] [address] #### BMP, GFR #### [place] [address] XR KNEE 1 OR 2 VIEWS LEFTon 01-08-2021 XR KNEE 1 OR 2 VIEWS LEFT ORIGINAL EXAMINATION: TWO XRAY VIEWS OF THE LEFT KNEE 01/08/2021 11:47 am COMPARISON: None. HISTORY: ORDERING SYSTEM PROVIDED HISTORY: Reason for Exam: Status Post Arthroplasty FINDINGS: A complete knee prosthesis is identified. The components appear well seated and intact. No acute fracture or dislocation is identified. Gas within the soft tissues is likely postoperative. Surgical andria overlie the midline. IMPRESSION: Surgical changes. Interpreted by: Meron Vargas Preliminary Report By: Meron Vargas Electronically signed By Meron Vargas Dictated Date: 01/08/2021 12:03:52 PM Prelim Date: 01/08/2021 12:04:47 PM Sign Date: 01/08/2021 12:04:47 PM Ordering Provider: JOSE Perkins [facility] ([place]) .Auto Diffon 12-21-2020 Basophil, Absolute 0.10 10 3/mcL Normal 0.00-0.19 [facility] ([place]) Comment on above: Performed By: #### C BC, ADIFF, ANEU, BMP, ALB #### [address] [address] #### GFR #### [address] [address] Basophils/100 WBC (Bld) 0.8 % Normal 0.0-2.5 [facility] ([place] Comment on above: Performed By: #### C BC, ADIFF, ANEU, BMP, ALB #### [place] [address] #### GFR #### [address] [address] Eosinophil, Absolute 0.30 10 3/mcL Normal 0.00-0.40 [facility] ([place]) Comment on above: Performed By: #### C BC, ADIFF, ANEU, BMP, ALB #### [place] [address] #### GFR #### [address] [address] Eosinophils/100 WBC (Bld) 3.3 % Normal 0.0-7.0 [facility] ([place] Comment on above: Performed By: #### C BC, ADIFF, ANEU, BMP, ALB #### [place] [address] #### GFR #### [address] [address] Lymphocyte, Absolute 2.10 10 3/mcL Normal 0.77-3.85 [facility] ([place]) Comment on above: Performed By: #### C BC, ADIFF, ANEU, BMP, ALB #### [place] [address] #### GFR #### [address] [address] Lymphocytes/100 WBC (Bld) 21.6 % Normal 10.0-50.0 [facility] ([place] Comment on above: Performed By: #### C BC, ADIFF, ANEU, BMP, ALB #### [place] [address] #### GFR #### [address] [address] Monocyte, Absolute 0.70 10 3/mcL Normal 0.15-1.00 [facility] ([place]) Comment on above: Performed By: #### C BC, ADIFF, ANEU, BMP, ALB #### [place] [address] #### GFR #### [address] [address] Monocytes/100 WBC (Bld) 7.6 % Normal 1.7-13.0 [facility] ([place] Comment on above: Performed By: #### C BC, ADIFF, ANEU, BMP, ALB #### [address] [address] #### GFR #### [address] [address] Neutrophils/100 WBC (Bld) 66.7 % Normal 37.0-80.0 [facility] ([place] Comment on above: Performed By: #### C BC, ADIFF, ANEU, BMP, ALB #### [address] [address] #### GFR #### [address] [address] .GFRon 12-21-2020 GFR 117 ml/min/1.73sqm Normal [facility] ([place]) Comment on above: Result Comment: GFR Population mean for , Non- Americans Ages 20-29 = 116 mL/min/1.73 sq.m. Ages 30-39 = 107 mL/min/1.73 sq.m. Ages 40-49 = 99 mL/min/1.73 sq.m. Ages 50-59 = 93 mL/min/1.73 sq.m. Ages 60-69 = 85 mL/min/1.73 sq.m. Ages 70+ = 75 mL/min/1.73 sq.m. Chronic Kidney Disease: Less than 60 mL/min/1.73 square meters End Stage Renal Disease: Less than 15 mL/min/1.73 square meters Performed By: #### C BC, ADIFF, ANEU, BMP, ALB #### [address] [address] #### GFR #### [address] [address] GFR Non- 96 ml/min/1.73sqm Normal [facility] ([place] Comment on above: Result Comment: GFR Population mean for , Non- Americans Ages 20-29 = 116 mL/min/1.73 sq.m. Ages 30-39 = 107 mL/min/1.73 sq.m. Ages 40-49 = 99 mL/min/1.73 sq.m. Ages 50-59 = 93 mL/min/1.73 sq.m. Ages 60-69 = 85 mL/min/1.73 sq.m. Ages 70+ = 75 mL/min/1.73 sq.m. Chronic Kidney Disease: Less than 60 mL/min/1.73 square meters End Stage Renal Disease: Less than 15 mL/min/1.73 square meters Performed By: #### C BC, ADIFF, ANEU, BMP, ALB #### [place] [address] #### GFR #### [place] [address] .NEUABSon 12-21-2020 Neutrophil, Absolute 6.40 10 3/mcL High 2.85-6.16 [facility] ([place]) Comment on above: Performed By: #### C BC, ADIFF, ANEU, BMP, ALB #### [place] [address] #### GFR #### [place] [address] ALBon 12-21-2020 Albumin Level 3.4 G/dL Normal 3.4-4.8 [facility] ([place] Comment on above: Performed By: #### C BC, ADIFF, ANEU, BMP, ALB #### [place] [address] #### GFR #### [place] [address] BMPon 12-21-2020 BUN/Creatinine Ratio 18 ratio Normal 7-27 [facility] ([place]) Comment on above: Performed By: #### C BC, ADIFF, ANEU, BMP, ALB #### [place] [address] #### GFR #### [place] [address] Calcium [Mass/Vol] 9.0 mg/dL Normal 8.4-10.2 [facility] ([place]) Comment on above: Performed By: #### C BC, ADIFF, ANEU, BMP, ALB #### [address] [address] #### GFR #### [address] [address] Chloride [Moles/Vol] 107 mmol/L Normal 98-107 [facility] ([place]) Comment on above: Performed By: #### C BC, ADIFF, ANEU, BMP, ALB #### [address] [address] #### GFR #### [address] [address] CO2 [Moles/Vol] 23 mmol/L Normal 23-31 [facility] ([place]) Comment on above: Performed By: #### C BC, ADIFF, ANEU, BMP, ALB #### [place] [address] #### GFR #### [place] [address] Creatinine [Mass/Vol] 0.62 mg/dL Normal 0.55-1.02 [facility] ([place]) Comment on above: Performed By: #### C BC, ADIFF, ANEU, BMP, ALB #### [place] [address] #### GFR #### [place] [address] Electrolyte Balance 13.0 mEq/L Normal [facility] ([place]) Comment on above: Performed By: #### C BC, ADIFF, ANEU, BMP, ALB #### [place] [address] #### GFR #### [place] [address] Glucose [Mass/Vol] 104 mg/dL Normal 80-115 [facility] ([place]) Comment on above: Performed By: #### C BC, ADIFF, ANEU, BMP, ALB #### [address] [address] #### GFR #### [address] [address] Potassium [Moles/Vol] 3.8 mmol/L Normal 3.5-5.1 [facility] ([place]) Comment on above: Performed By: #### C BC, ADIFF, ANEU, BMP, ALB #### [address] [address] #### GFR #### [address] [address] Sodium [Moles/Vol] 143 mmol/L Normal 136-145 [facility] ([place]) Comment on above: Performed By: #### C BC, ADIFF, ANEU, BMP, ALB #### [address] [address] #### GFR #### [address] [address] Urea nitrogen [Mass/Vol] 11 mg/dL Normal 7-18 [facility] ([place] Comment on above: Performed By: #### C BC, ADIFF, ANEU, BMP, ALB #### [address] [address] #### GFR #### [address] [address] CBCon 12-21-2020 Erythrocyte distribution width (RBC) [Ratio] 15.8 % High 11.5-14.5 [facility] ([place]) Comment on above: Order Comment: Pre-A dmission Testing Performed By: #### C BC, ADIFF, ANEU, BMP, ALB #### [address] [address] #### GFR #### [address] [address] Hematocrit (Bld) [Volume fraction] 36.2 % Low 37.0-47.0 [facility] ([place] Comment on above: Order Comment: Pre-A dmission Testing Performed By: #### C BC, ADIFF, ANEU, BMP, ALB #### [place] [address] #### GFR #### [place] [address] Hgb 12.1 G/dL Normal 12.0-16.0 [facility] ([place] Comment on above: Order Comment: Pre-A dmission Testing Performed By: #### C BC, ADIFF, ANEU, BMP, ALB #### [place] [address] #### GFR #### [place] [address] MCH (RBC) [Entitic mass] 29.7 pg Normal 27.0-31.2 [facility] ([place] Comment on above: Order Comment: Pre-A dmission Testing Performed By: #### C BC, ADIFF, ANEU, BMP, ALB #### [place] [address] #### GFR #### [place] [address] MCHC 33.3 G/dL Normal 33.0-37.0 [facility] ([place] Comment on above: Order Comment: Pre-A dmission Testing Performed By: #### C BC, ADIFF, ANEU, BMP, ALB #### [place] [address] #### GFR #### [place] [address] MCV (RBC) [Entitic vol] 89.2 fL Normal 80.0-94.0 [facility] ([place] Comment on above: Order Comment: Pre-A dmission Testing Performed By: #### C BC, ADIFF, ANEU, BMP, ALB #### [place] [address] #### GFR #### [place] [address] Platelet 176 10 3/mcL Normal 130-400 [facility] ([place] Comment on above: Order Comment: Pre-A dmission Testing Performed By: #### C BC, ADIFF, ANEU, BMP, ALB #### [place] [address] [place], [place] [address] #### GFR #### [place] [address] Platelet mean volume (Bld) [Entitic vol] 13.1 fL High 7.4-10.4 [facility] ([place] Comment on above: Order Comment: Pre-A dmission Testing Performed By: #### C BC, ADIFF, ANEU, BMP, ALB #### [address] [address] #### GFR #### [place] [address] RBC 4.05 10 6/mcL Low 4.20-5.40 [facility] ([place]) Comment on above: Order Comment: Pre-A dmission Testing Performed By: #### C BC, ADIFF, ANEU, BMP, ALB #### [address] [address] #### GFR #### [place] [address] WBC 9.70 10 3/mcL Normal 4.60-10.80 [facility] ([place]) Comment on above: Order Comment: Pre-A dmission Testing Performed By: #### C BC, ADIFF, ANEU, BMP, ALB #### [address] [address] #### GFR #### [place] [address] CT KNEE W/O CONTRAST LEFTon 12-21-2020 CT KNEE W/O CONTRAST LEFT ORIGINAL EXAMINATION: CT OF THE LEFT KNEE WITHOUT CONTRAST 12/21/2020 1:03 pm TECHNIQUE: CT of the left knee was performed without the administration of intravenous contrast. Multiplanar reformatted images are provided for review. Dose modulation, iterative reconstruction, and/or weight based adjustment of the mA/kV was utilized to reduce the radiation dose to as low as reasonably achievable. COMPARISON: Left knee radiographs 03/13/2014 HISTORY ORDERING SYSTEM PROVIDED HISTORY: Reason for Exam: varus deformity not elsewhere classified left knee FINDINGS: No acute fracture or dislocation is identified. There is a diffuse decrease in osseous mineralization. No aggressive osseous lesions are noted within the provided field of view. However, there is an osseous excrescence projecting at the midline of the posterior tibial plateau with corticomedullary continuity, compatible with an osteochondroma. There Is severe osteoarthrosis of the medial femorotibial compartment and patellofemoral compartments with marked joint space loss, large marginal osteophytes, subchondral sclerosis, and subchondral cystic change. There is moderate to severe osteoarthrosis of the lateral femorotibial compartment with large marginal osteophytes, subchondral sclerosis, and subchondral cystic change. A small volume knee joint effusion is present. A sizable intracapsular osteochondral body of the suprapatellar recess measures 1.9 cm in craniocaudal dimension. Visualized soft tissues exhibit no gross acute abnormalities. Survey images of the left hip exhibit mild arthrosis. No aggressive osseous lesions are present. Survey images of the left ankle exhibit no acute abnormalities or aggressive osseous lesions. IMPRESSION: 1. Moderate to severe tricompartmental osteoarthrosis, most pronounced of the patellofemoral compartment. 2. Small volume knee joint effusion with a large intracapsular osteochondral body of the suprapatellar recess. 3. Small osteochondroma of the posterior central tibial plateau. If there is further concern, MRI may be obtained to further evaluate the cartilage cap. Interpreted by: Tay Sandra Preliminary Report By: Tay Sandra Electronically signed By Tay Sandra Dictated Date: 12/21/2020 1:10:38 PM Prelim Date: 12/21/2020 1:15:56 PM Sign Date: 12/21/2020 1:15:56 PM Ordering Provider: JOSE HICKEY [facility] ([place]) Jean Claude 08-31-2020 EMILIO Telephone (STED) MINERVA MEHTA ([id number]) 1955 F Date Time Provider Department 08/31/20 CELESTE FOSTER During your visit today, we recorded the following information about you: Celeste Foster MD 08/31/2020 3:10 PM Signed Please schedule this patient in the new weight management slots on Thursday afternoons Please let me know if there are any questions about the slots. MD Lance Muñoz [facility] 08/31/2020 3:25 PM Signed Attempted to reach patient Left vm to return call and schedule with Dr Foster for weight mgmt consultation Mychart not active Please schedule when patient returns call Niki Mera [facility] 09/03/2020 9:54 AM Signed Patient is declining scheduling at this time she stated that she would have to do this locally as she is currently immobile due to knee issues and wants to weight until she finds out about the knee issue. Allergies As of Date: 08/31/2020 (No Known Allergies) Date Reviewed: 08/28/2020 Reviewed by: Jose Adame MD - Fully Assessed Reason for Visit: Appointment [[id number]] Prescriptions as of 08/31/2020 Sig: ASPIRIN 81 MG CHEWABLE TABLET Take 1 tablet by mouth once d* GABAPENTIN 400 MG CAPSULE Take 400 mg by mouth twice da* CHOLECALCIFEROL (VITAMIN D3) * Take 1 capsule by mouth once * IBUPROFEN 800 MG TABLET Take 800 mg by mouth three ti* Problem List As Of Date: 08/31/2020 (None) Encounter Status:Closed by LANCE RICHARD on 08/31/20 [facility] CNOVon 08-27-2020 CNOV Office Visit (ART ) MINERVA MEHTA ([id number]) 1955 F Date Time Provider Department 08/27/20 3:30 PM JOSE ADAME During your visit today, we recorded the following information about you: Weight Height 122.5 kg 1.651 m Jose Adame MD 08/28/2020 7:41 AM Signed Jose Adame MD Department of Orthopaedics [facility] [address] [place] [address] Dept: [phone] Dept August 27, 2020 CHIEF COMPLAINT: New and Knee Pain of the Right Knee and New and Knee Pain of the Left Knee HPI Patient here today for bilateral knee pain x 7-8 years. States she has seen Orthopaedics at [facility] and was told to lose weight. She has not been able to exercise due to knee pain. Gives history of Rheumatoid arthritis. X-ray at [facility] today. ASSESSMENT: M17.0 Primary osteoarthritis of both [...] loss program. FOLLOW UP INSTRUCTIONS: As above Ms. Minerva Mehta was advised as to contrast therapies and/or to take analgesics/anti-infla mmatories as needed and all contraindications were reviewed. OBJECTIVE: Ms. Minerva Mehta is a pleasant 64 year old [...] IMAGING: IMPRESSION: Advanced degenerative changes as described. Business Banker: BENITEZ ? Transcribe Date/Time: Aug 27 2020 ?3:27P Dictated by : DEMETRI HALL MD This examination was interpreted and the report reviewed and electronically signed by: DEMETRI HALL MD on Aug 27 2020 ?3:29PM ?EST Results-Findings * * *Final Report* * * DATE OF EXAM: Aug 27 2020 ?3:12PM ? WRX ? 5618 ?- ?XR KNEE 4V AP/PA/LAT/MERCH LAKESHIA ? / PROCEDURE REASON: Pain ?? [...] for fatigue, malaise, weight loss/gain) HEENT (negative (more content not included)... Normal [facility] XR KNEE 4V AP/PA/LAT/MERCH B ILon 08-27-2020 XR KNEE 4V AP/PA/LAT/MERCH LAKESHIA * * *Final Report* * * DATE OF EXAM: Aug 27 2020 3:12PM WRX 5618 - XR KNEE 4V AP/PA/LAT/MERCH LAKESHIA / PROCEDURE REASON: Pain * * * * Physician Interpretation * * * * CLINICAL INDICATION: Knee pain TECHNIQUE: 4 view radiographic [...] loose body in the suprapatellar joint space. IMPRESSION: Advanced degenerative changes as described. Business Banker: BENITEZ Transcribe Date/Time: Aug 27 2020 3:27P Dictated by : DEMETRI HALL MD This examination was interpreted and the report reviewed and electronically signed by: DEMETRI HALL MD on Aug 27 2020 3:29PM EST [id number] Normal [facility] Vital Signs Date Time Vital Sign Value Performing Clinician Faci lity 03-20-2021 15:31-0500 Body temperature 97.7 [degF] DR JOSE HICKEY MD [facility] 03-20-2021 15:31-0500 Diastolic Blood Pressure NBP [address] JOSE HICKEY MD [facility] 03-20-2021 15:31-0500 Heart rate 87 /min DR JOSE HICKEY MD [facility] 03-20-2021 15:31-0500 Respiratory rate 18 /min DR JOSE HICKEY MD [facility] 03-20-2021 15:31-0500 Systolic Blood Pressure NBP [address] JOSE HICKEY MD [facility] 03-20-2021 11:20-0500 Body temperature 97.88 [degF] DR JOSE HICKEY MD [facility] 03-20-2021 11:20-0500 Diastolic Blood Pressure NBP [address] JOSE HICKEY MD [facility] 03-20-2021 11:20-0500 Heart rate 84 /min DR JOSE HICKEY MD [facility] 03-20-2021 11:20-0500 Respiratory rate 18 /min DR JOSE HICKEY MD [facility] 03-20-2021 11:20-0500 Systolic Blood Pressure NBP [address] JOSE HICKEY MD [facility] 03-20-2021 07:33-0500 Body temperature 98.42 [degF] DR JOSE HICKEY MD [facility] 03-20-2021 07:33-0500 Diastolic Blood Pressure NBP [address] JOSE HICKEY MD [facility] 03-20-2021 07:33-0500 Heart rate 81 /min DR JOSE HICKEY MD [facility] 03-20-2021 07:33-0500 Respiratory rate 18 /min DR JOSE HICKEY MD [facility] 03-20-2021 07:33-0500 Systolic Blood Pressure NBP [address] JOSE HICKEY MD [facility] 03-20-2021 03:27-0500 Heart rate 88 /min DR JOSE HICKEY MD [facility] 03-20-2021 00:42-0500 Heart rate 87 /min DR JOSE HICKEY MD [facility] 03-19-2021 20:28-0500 Diastolic blood pressure 70 mm[Hg] DR JOSE HICKEY MD [facility] 03-19-2021 20:28-0500 Heart rate 94 /min DR JOSE HICKEY MD [facility] 03-19-2021 20:28-0500 Systolic blood pressure 138 mm[Hg] DR JOSE HICKEY MD [facility] 03-19-2021 17:10-0500 Body temperature 96.8 [degF] DR JOSE HICKEY MD [facility] 03-19-2021 12:16-0500 Body height 165.[address] JOSE HICKEY MD [facility] 03-19-2021 12:16-0500 Body weight [address] JOSE HICKEY MD [facility] 03-19-2021 12:16-0500 Body weight 43.29 kg/m2 DR JOSE HICKEY MD [facility] 03-19-2021 12:04-0500 Body temperature 97.34 [degF] DR JOSE HICKEY MD [facility] 03-19-2021 12:04-0500 Diastolic blood pressure 67 mm[Hg] DR JOSE HICKEY MD [facility] 03-19-2021 12:04-0500 Heart rate 72 /min DR JOSE HICKEY MD [facility] 03-19-2021 12:04-0500 Systolic blood pressure 152 mm[Hg] DR JOSE HICKEY MD [facility] Encounters Encounter Date Encounter Type Care Provider Facility Start: 03-19-2021 End: 03-20-[address] JOSE HICKEY MD [facility] Start: 03-01-2021 End: 03-01-[address] JOSE HICKEY MD [facility] Procedures Date Procedure Procedure Detail Performing Clinician Start: 01-08-2021 Structure of left kn ee (body structure) DR JOSE HICKEY MD Decompression of med mark nerve DR JOSE HICKEY MD Comment on above: bilateral Excision of lumbar intervertebral disc DR JOSE HICKEY MD Laparoscopic sterilization D R JOSE HICKEY MD Tonsillectomy DR JOSE HINOJOSA MD Immunizations Immunization Date Immunization Notes Care Provider Fa cili 08-15-2020 SARS-CoV-2 (COVID-19 ) mRNA-[address] JOSE HICKEY MD [facility] Comment on above: Result Comment: 2020: TPV65 07-18-2020 SARS-CoV-2 (COVID-19 ) mRNA-[address] JOSE HICKEY MD [facility] Comment on above: Result Comment: 2020: TPV65 10-27-2017 tetanus toxoid, redu henry diphtheria toxoid, and acellular pertussis vaccine, adsorbed DR JOSE HICKEY MD [facility] 03-09-2014 zoster vaccine, live DR EVE HICKEY MD [facility] Social History Date Type Detail Facility Start: 12-21-2020 Never smoked t obacco (finding) [facility] Sex Assigned At [facility] Hospital Discharge instructions 03-20-2021 Note Date & Type Note Facility 03-20-2021 Hospital Discharg e instructions Patient Education 03/20/2021 07:46:05 5 - [facility] Post-op Instruction 11/2016 (95331) [facility] Post-operative Instructions PLEASE FOLLOW [facility] POST-OP INSTRUCTIONS GIVEN WATCH FOR SIGNS OF INFECTION: call the office ([phone]) if experencing any of the following: (Usually [...] on your follow up instructions. Form: 338A (08125) R: 08/24 Follow Up Care 02/28/2021 15:44:07 With:[facility] Address: [address] [place] [address] [phone] When:03/22/2021 10:00:00 Comments:This is your first physical therapy appointment. Follow-up as scheduled. With:JOSE HICKEY MD Address: [address] [place] [id number] [phone] When:04/01/2021 14:00:00 Comments:This is your post-op appointment and is in the [place] office. Follow-up as scheduled. [facility] Progress note 08-27-2020 Note Date & Type Note Facility 08-27-2020 Note HNO ID: [id number] Author: Jose Adame MD Service: ? Author Type: Physician Type: Progress Notes Filed: 08/28/2020 7:41 AM Note Text: Jose Adame MD Department of Orthopaedics Orthopa[facility] [address] [facility] [address] Dept: [phone] Dept August 27, 2020 CHIEF COMPLAINT: New and Knee Pain of the Right Knee and New and Knee Pain of the Left Knee HPI Patient here today for bilateral knee pain x 7-8 years. States she has seen Orthopaedics at [facility] and was told to lose weight. She has not been able to exercise due to knee pain. Gives history of Rheumatoid arthritis. X-ray at [facility] today. ASSESSMENT: M17.0 Primary osteoarthritis of both [...] loss program. FOLLOW UP INSTRUCTIONS: As above Ms. Minerva Mehta was advised as to contrast therapies and/or to take analgesics/anti-inflammatories as needed and all contraindications were reviewed. OBJECTIVE: Ms. Minerva Mehta is a pleasant 64 year old [...] IMAGING: IMPRESSION: Advanced degenerative changes as described. Business Banker: BENITEZ ? Transcribe Date/Time: Aug 27 2020 ?3:27P Dictated by : DEMETRI HALL MD This examination was interpreted and the report reviewed and electronically signed by: DEMETRI HALL MD on Aug 27 2020 ?3:29PM ?EST Results-Findings * * *Final Report* * * DATE OF EXAM: Aug 27 2020 ?3:12PM ? WRX ? 5618 ?- ?XR KNEE 4V AP/PA/LAT/MERCH LAKESHIA ? / PROCEDURE REASON: Pain ?? [...] Psych (no depres (more content not included)... [facility] Progress note 08-27-2020 Note Date & Type Note Facility 08-27-2020 Note HNO ID: [id number] Author: RT Salty(R) Service: ? Author Type: Manager Convention Type: Progress Notes Filed: 08/27/2020 3:14 PM Note Text: Radiology Service Progress Note PATIENT NAME: Minerva Mehta DATE OF SERVICE: August 27, 2020 [...] PERIPHERAL IV DATA: Not applicable SIGNED BY: RT Salty(R) August 27, 2020 3:13 PM [facility] Evaluation + Plan note Note Date & Type Note Facility Evaluation + Plan note Future Appointments [facility] Hospital course Narrative Note Date & Type Note Facility Hospital course Narrative No data available for this section [facility] Hospital Discharge instructions Note Date & Type Note Facility Hospital Discharge instructions No data available for this section [facility] Summary Purpose Family History No Family History Records FoundNo Family History Records Found Advance Directives No Advanced Directives Records FoundNo Advanced Directives Records Found Additional Source Comments INFORMATION SOURCE (unrecogn ized section and content) DATE CREATED AUTHOR 03/28/2021 [facility] ([place]) DATE CREATED AUTHOR AUTHOR'S LISBET ATCOLLIN 05/21/2021 [facility] FOR RECORDS PERTAINING TO PATIENTS WHO ARE [...] BE BASED ON THE PRIMARY CLINICAL RECORDS. [email or web address] [facility]. provides no warranty or guarantee of the accuracy or completeness of information in this document.
[2024-01-22] MEDS: Lactated Ringers 1,000 ML 40 ML IV (06:36)
[2024-01-22] MEDS: dexAMETHasone 4 MG/ML Vial 8 MG IV (06:37)
[2024-01-22] MEDS: Scopolamine 1mg/72hr Patch 1 PATCH TD (06:38)
[2024-01-22] MEDS: Enoxaparin 40 MG/0.4 ML Syringe SC (06:39)
[2024-01-22] MEDS: Acetaminophen 500 MG Tablet 1000 MG PO ×3 (06:41→18:24)
[2024-01-22] MEDS: Gabapentin 600 MG Tablet PO (06:41)
[2024-01-22] MEDS: Celecoxib 200 MG Capsule 400 MG PO (06:41)
[2024-01-22 06:42] LABS: Hematocrit 40.8 % (37-47); Hemoglobin 12.8 g/dL (12.0-15.0); Mean Corp Hgb Conc 31.4 g/dL (32-36); Mean Corpuscular Hgb 29.4 pg (27.0-32.0); Mean Corpuscular Volume 93.6 fL (81-99); Mean Platelet Vol. 13.6 fl (6.2-12.0); Platelet Count 182 K/mm3 (150-450); RBC Distribution Width CV 13.8 % (11.6-14.6); RBC Distribution Width SD 46.8 fl (35.1-43.9); Red Blood Count 4.36 M/mm3 (4.2-5.4); White Blood Count 9.5 K/mm3 (4.4-11.0)
--- NOTE | 2024-01-22 07:11 | HP.PCM_ITS ---
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 Is patient in pain?: Yes (left sided pain ) Allergies No Known Allergies Allergy (Verified 01/08/24 13:25) Medications ?Medication ?Instructions ?Recorded ?Confirmed ?Type aspirin 81 mg chewable tablet 81 mg PO DAILY HEALTH MAINTENANCE 05/30/19 01/08/24 History fexofenadine 180 mg tablet 180 mg PO DAILY PRN SEASONAL 05/15/20 01/08/24 History (Fozia Allergy) ALLERGIES handicap placard #1 ea 05/08/22 11/25/23 Rx Handicap placard #1 ea 08/28/22 11/25/23 Rx cholecalciferol (vitamin D3) 50 50 mcg PO DAILY 04/28/23 01/08/24 History mcg (2,000 unit) tablet (Vitamin D3) gabapentin 400 mg capsule 400 mg PO BID back pain #180 caps 05/20/23 01/08/24 Rx pantoprazole 40 mg tablet,delayed See Rx Instructions .Route 11/25/23 01/06/24 Rx release .COMPLEX #30 tabs promethazine 25 mg tablet See Rx Instructions .Route 11/25/23 01/08/24 Rx .COMPLEX #30 TABLETS valsartan 160 mg tablet 160 mg PO DAILY #90 TABLETS 01/05/24 01/08/24 Rx ibuprofen 800 mg tablet 800 mg PO TID pain 01/08/24 History Is last menstrual period known: No Post menopausal: Yes Patient : No : No PFSH Medical History (Updated 01/08/24 @ 13:[address] Klarissa Arteaga MD) Essential hypertension Ambulates with cane Wears glasses MRSA infection Post-menopausal Easy bruising Migraine headache Non-smoker History of echocardiogram Uncomplicated opioid dependence Chronic back pain Rheumatoid arthritis Surgical History (Updated 09/20/24 @ 13:[address] Klarissa Arteaga MD) History of bilateral knee replacement History of back surgery History of carpal tunnel release History of tubal ligation History of tonsillectomy Family History Mother DiabetesFather Heart disease Cancer Social History Smoking Status: Never smoker alcohol intake: never substance use type: does not use caffeine: Yes what type of physical activity do you participate in: other details: stretches frequency: daily seatbelt use: always do you feel safe at home: Yes additional social history: HPI [place] Combo Details: PAUL MEHTA is a 68 year old who presents for preop visit. she has prolapse, planning combo case hysterectomy with myla. Female Reproductive History Menopausal Symptoms: No night sweats History 2 Elective abortions Hx Para 2 Spontaneous abortions Hx # Term Pregnancies Ectopic pregnancies Hx # Pregnancies Multiple births # of living children Past Pregnancies Del. Date Name GA/Weeks Outcome Route Bth Weight Infant Gen Labor Lgth Anesthesia Del Locatn Provider FOB Unknown Vinicio Unknown Rochelle ROS Const Constitutional: Reports fatigue; Denies night sweats, weight gain or weight loss ENT ENT: Reports system reviewed and no additional complaints, except as documented Cardio Card: Denies chest pain Resp Resp: Denies cough or dyspnea GI GI: Reports as per HPI; Denies abdominal pain, nausea or vomiting : Denies nipple discharge, urinary frequency, urinary hesitancy, vaginal discharge, vaginal dryness, vaginal odor or vaginal pruritus Musc Musc: Reports arthralgias and back pain; Denies muscle weakness Skin Skin/Breast: Denies alopecia, change in hair, dry skin, breast mass, breast pain, breast skin changes or nipple discharge Neuro Neuro: Reports system reviewed and no additional complaints, except as documented Psych Psych: Reports system reviewed and no additional complaints, except as documented Endo Endo: Denies cold intolerance, excessive sweating, heat intolerance or polydipsia Federico/Lymph Hematologic/Lymphatic: Denies easy bleeding, Denies easy bruising and Denies lymphadenopathy Exam Const General: cooperative, healthy appearing, comfortable and no acute distress Orientation: alert HENMT Head: normal to inspection and normocephalic Ears: hearing grossly normal bilaterally and external ears normal Nose: external nose normal and nares normal Face and sinus: normal facial exam Neck Neck: normal visual inspection and no lymphadenopathy Thyroid: thyroid normal Chest Chest palpation & inspection: normal inspection of the chest Resp Effort & Inspection: normal respiratory effort Auscultation: clear to auscultation bilaterally Cardio Rate: regular rate Rhythm: regular rhythm Heart Sounds: S1 normal and S2 normal GI Inspection: normal to inspection and non-distended Palpation: soft and no hepatosplenomegaly Musc Other: gross motor intact no deficits, full bilateral strength Skin General: no rashes or lesions noted Neuro General: patient alert, patient awake, moves all extremities and no focal motor deficits Motor: muscle tone normal throughout (walks with cane) Extrem General: normal to inspection and no pedal edema Psych Appearance: grossly normal Mental Status: mental status grossly normal Affect: normal affect Speech and Movement: speech and movement normal Coding Level of Care Code No Charge Diagnoses Complete uterovaginal prolapse N81.3 Stress incontinence N39.3 Assessment and Plan Assessment and Plan (1) Complete uterovaginal prolapse: Status: Acute Comment: plan TVHBSO combo with Myla (2) Stress incontinence: Status: Acute Plan After discussing the patient's diagnosis and treatment plan options, patient wishes to proceed with surgical management. I have discussed with the patient the risks, benefits, and alternatives of the procedure which include but are not limited to risks of anesthesia, bleeding, infection, possible damage to bowel, bladder, or surrounding vasculature which could lead to additional surgery to evaluate any complications. Patient agrees to procedure and wishes to proceed. ACOG/uptodate references given for additional information regarding procedure. UPDATE- I have seen the patient and performed any clinically relevant updates to the history and physical exam. Klarissa Arteaga MD
--- NOTE | 2024-01-22 07:12 | PCM.PRE.AN2 ---
ASA Classification* ASA Classification ASA Classification: 2 Assessment & Plan Anesthesia* Anesthesia Assessment Anesthesia Assessment: Discussed sedation and/or anesthesia options, risks, benefits, and alternatives with patient/parents/legal guardian/POA. Questions invited. The patient/parents/legal guardian/POA seems to understand and agrees to proceed with anesthesia plan. Reviewed the physical assessment, medical history, allergy history and patient home medications list prior to surgery/procedure/anesthetic and documented any changes. Performed airway and anesthesia risk assessments. Anesthesia Type Anesthesia Type: MAC (see written pre anesthesia record for full assessment) Anesthesia Focused Assessment* Temperature: 98 F Pulse Rate: 66 Blood Pressure: 146/81 Respiratory Rate: 18 Pulse Ox: 98 Airway Assessment Mouth opens: >3 cm Mallampati Score: II Focused Labs Anesthesia Preop lab: CBC WBC 9.5 K/mm3 (4.4-11.0) 01/22/24 06:25 RBC 4.36 M/mm3 (4.2-5.4) 01/22/24 06:25 Hgb 12.8 g/dL (12.0-15.0) 01/22/24 06:25 Hct 40.8 % (37-47) 01/22/24 06:25 Plt Count 182 K/mm3 (150-450) 01/22/24 06:25 CHEMISTRY Potassium 3.3 mmol/L (3.5-5.1) L 07/22/22 09:54 Sodium 142 mmol/L (136-145) 07/22/22 09:54 Magnesium 2.1 mg/dL (1.6-2.6) 06/05/22 05:54 Phosphorus 3.1 mg/dL (2.5-4.9) 06/05/22 05:54 BUN 14 mg/dL (7-18) 07/22/22 09:54 Creatinine 0.66 mg/dL (0.55-1.02) 07/22/22 09:54 Glucose 105 mg/dL (74-106) 07/22/22 09:54 TSH 1.02 uIU/mL (0.358-3.74) 05/25/19 11:40 COAG PT 16.2 SECONDS (11.7-14.9) H 06/03/22 20:43 Pre-Assessment Diagnosis/Proposed Procedure Planned Operative Procedure(s): (B) Hysterectomy,Total Vaginal, Bilateral Salpingectomy (B) Repair Anterior & Posterior with Dermis, Possible Sling, Cysto, Bilateral SSLF Anesthesia History 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 When Was Last Pacemaker Check QUESTION #4 FULL TEXT: You/Your Family Experience fever (hyperthermia) with Anesthesia Last Oral Intake Last Oral intake: Last Oral Intake NPO since 00:00 01/22/24 06:46 Meds taken in AM with sips of Yes 01/22/24 06:46 water? 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 Female Yes 01/06/24 10:21 HX of Motion Sickness No 01/06/24 10:21 HX of N/V After Surgery No 01/06/24 10:21 Non-Smoker Yes 01/06/24 10:21 Duration of Surgery greater Yes 01/06/24 10:21 than 60 minutes Number of Risk Factors 3 01/06/24 10:21 PONV Score Moderate Risk 01/06/24 10:21 Height & Weight Height & Weight: Anesthesia: Height & Weight Height 5 ft 6 in 01/22/24 06:46 Weight: 98 kg 01/22/24 06:46 Body Mass Index (BMI) 34.8 01/22/24 06:46 Respiratory Assessment Respiratory Assessment - bookkeeping clerks supervisor: Respiratory Tract Infection Hx - bookkeeping clerks supervisor Hx Respiratory Tract Infection No 01/06/24 10:21 STOP Sleep Apnea STOP Sleep Apnea - bookkeeping clerks supervisor: STOP Sleep Apnea - bookkeeping clerks supervisor Hx Hypertension Yes: CONTROLLED WITH MED 01/06/24 10:21 Hx Sleep Apnea No 01/06/24 10:21 CPAP BIPAP Do you snore loudly (louder No 01/06/24 10:21 than talking or can be heard Do you often feel tired/ No 01/06/24 10:21 fatigued/ sleepy during daytime? Has anyone observed you stop No 01/06/24 10:21 breathing during sleep? STOP Results Negative 01/06/24 10:21 QUESTION #5 FULL TEXT : Do you snore loudly (louder than talking or can be heard through closed doors)? 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 Specify any problems Hx of Preganancy in last 3 N/A 01/06/24 10:21 Months Nurse Filling Out Transfusion NBUCHER 01/06/24 10:21 & Questions: Date: 01/06/24 01/06/24 10:21 Time: 10:22 01/06/24 10:21 Patient unable to answer at this time (ie. 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: /Reproductive Hx- bookkeeping clerks supervisor Hx Now No 01/06/24 10:21 Gestational Age (in weeks): EDC: Hx Hx Para Hx Section SAB No 01/08/24 13:28 Active Medications Active Medications: Current Medications Generic Name Dose Route Start Last Admin Trade Name Freq PRN Reason Stop Dose Admin Acetaminophen 1,000 mg 01/22/24 07:30 01/22/24 06:41 Acetaminophen 500 Mg Tablet PO 01/22/24 07:31 1,000 mg PREOP ONE Administration Celecoxib 400 mg 01/22/24 07:30 01/22/24 06:41 Celecoxib 200 Mg Capsule PO 01/22/24 07:31 400 mg X1 ONE Administration Dexamethasone Sodium Phosphate 8 mg 01/22/24 07:30 01/22/24 06:37 Dexamethasone 4 Mg/Ml Vial IV 01/22/24 07:31 8 mg X1 ONE Administration Enoxaparin Sodium 40 mg 01/22/24 07:30 01/22/24 06:39 Enoxaparin 40 Mg/0.4 Ml Syringe SC 01/22/24 07:31 40 mg X1 ONE Administration Gabapentin 600 mg 01/22/24 07:30 01/22/24 06:41 Gabapentin 600 Mg Tablet PO 01/22/24 07:31 600 mg PREOP ONE Administration Lactated Ringer's 1,000 mls @ 40 mls/hr 01/22/24 07:30 01/22/24 06:36 IV 40 mls/hr .Q25H TIN Administration Cefazolin Sodium 2 gm/ Sodium 110 mls @ 150 mls/hr 01/22/24 07:30 Chloride IV 01/22/24 08:13 PREOP ONE Insulin Human Lispro 0 unit 01/22/24 07:30 Insulin Lispro 100 Unit/Ml Insuln.Pen SC 01/22/24 18:00 Q4H PRN PRN BG >/= 180, SEE PROTOCOL Protocol Ondansetron HCl 4 mg 01/22/24 07:30 Ondansetron 4 Mg/2 Ml Vial IV 01/22/24 07:31 X1 ONE Scopolamine HBr 1 patch 01/22/24 07:30 01/22/24 06:38 Scopolamine 1mg/72hr Patch TD 01/22/24 07:31 1 patch X1 ONE Administration PFSH Medical History Essential hypertension Ambulates with cane Wears glasses MRSA infection Post-menopausal Easy bruising Migraine headache Non-smoker History of echocardiogram Uncomplicated opioid dependence Chronic back pain Rheumatoid arthritis Home Medications ?Medication ?Instructions ?Recorded ?Last Taken ?Type aspirin 81 mg chewable tablet 81 mg PO DAILY HEALTH MAINTENANCE 05/30/19 01/15/24 History fexofenadine 180 mg tablet 180 mg PO DAILY PRN SEASONAL 05/15/20 Unknown History (Fozia Allergy) ALLERGIES handicap placard #1 ea 05/08/22 Unknown Rx Handicap placard #1 ea 08/28/22 Unknown Rx cholecalciferol (vitamin D3) 50 50 mcg PO DAILY 04/28/23 01/15/24 History mcg (2,000 unit) tablet (Vitamin D3) gabapentin 400 mg capsule 400 mg PO BID back pain #180 caps 05/20/23 01/15/24 Rx pantoprazole 40 mg tablet,delayed See Rx Instructions .Route 11/25/23 01/22/24 Rx release .COMPLEX #30 tabs promethazine 25 mg tablet See Rx Instructions .Route 11/25/23 01/22/24 Rx .COMPLEX #30 TABLETS valsartan 160 mg tablet 160 mg PO DAILY #90 TABLETS 01/05/24 01/22/24 Rx ibuprofen 800 mg tablet 800 mg PO TID pain 01/08/24 Unknown History Allergy/AdvReac Type Severity Reaction Status Date / Time No Known Allergies Allergy Verified 01/22/24 06:34 Family History Mother Diabetes Father Heart disease Cancer Surgical History History of bilateral knee replacement History of back surgery History of carpal tunnel release History of tubal ligation History of tonsillectomy Social History Smoking Status: Never smoker alcohol intake: never substance use type: does not use caffeine: Yes what type of physical activity do you participate in: other details: stretches frequency: daily seatbelt use: always do you feel safe at home: Yes additional social history: Review of Systems (Anesthesia) ROS Narrative System reviewed and no additional complaints, except as documented.
[2024-01-22 07:14] LABS: ALB/GLOB Ratio 0.9 RATIO (0.9-2.4); AST(SGOT) 12 U/L (15-37); Alanine Aminotransfer ALT/SGPT 13 U/L (13-56); Albumin, Serum 3.2 g/dL (3.2-5.0); Alkaline Phosphatase 142 U/L (45-117); Anion Gap 3 (5-15); BUN 14 mg/dL (7-18); Calcium,Total 8.8 mg/dL (8.5-10.1); Chloride 111 mmol/L (98-107); Creatinine, Serum 0.64 mg/dL (0.55-1.02); EST Glomerular Filtration Rate 98 mL/min (>60); Est Glom Filt Rate - Afr Amer 119 mL/min (>60); Estimated Creatinine Clearance 78.35 ml/min; Globulin 3.7 g/dL (2.2-4.2); Glucose 108 mg/dL (74-106); Potassium 3.7 mmol/L (3.5-5.1); Protein, Total 6.9 g/dL (6.4-8.2); Sodium Level 142 mmol/L (136-145)
[2024-01-22] MEDS: Magnesium 1 GM over 15 mins IV (07:22)
--- NOTE | 2024-01-22 07:30 | HYST_PTH ---
PATHOLOGY RESULTS PATIENT: PAUL MEHTA LOC: MS3 U#:[id number] AGE/SX: 68/F ROOM: GA321 RE01/22/[address]: Dr. Klarissa Arteaga MD : 1955 BED: 1 DIS: 01/23/2024 SPEC #: [id number] RECD: 01/22/24 13:14 STATUS: MARCELO ARAYA #: [id number] MELLISSA: 01/22/24 07:[address]: Klarissa Arteaga DEPT: SURGICAL PATHOLOGY RECD BY: Srini Rodriguez ENTERED: 01/22/24 13:31 SP TYPE: HYSTERECT OTHR DR: DO Dr. Clotilde Mosquera MD Tissues: Uterus, NOS Procedures: Surgery Specimen Level V HEADER OPERATION: Total vaginal hysterectomy PRE-OP DIAGNOSIS: Complete uterovaginal prolapse, stress incontinence, postmenopausal atrophic vaginitis, overactive bladder, nocturia TISSUE SUBMITTED: Uterus, Cervix MICROSCOPIC DIAGNOSIS Uterus and cervix, vaginal hysterectomy: Cervix - Chronic cystic cervicitis. - Hyperkeratosis. Endometrium - Weakly proliferative endometrium with cystic changes. Myometrium - Focal superficial adenomyosis. MIKEY. 01/25/2024 MICROSCOPIC DESCRIPTION Slides are reviewed. GROSS DESCRIPTION Received in fixative is one container labeled with the patient's name and designated uterus, cervix. The specimen consists of a hysterectomy specimen consisting of cervix and uterus. The uterus with cervix weighs 50 gm and measures 9.0 x 3.5 x 3.0 cm. The serosal surface is ayala glistening. The ectocervical mucosa is unremarkable. The external os is markedly stenotic. The endocervical canal measures 4.0 cm in length and the endocervical mucosa is ayala glistening and unremarkable. The triangular endometrial cavity measures 4.0 cm in length and 2.0 cm in width. The endometrium is ayala, glistening without any mass lesions and measures 0.1 cm in thickness. Sections of the uterine wall do not reveal any mass lesions and measures up to 1.2cm in thickness. [employer] sections are submitted in six cassettes as follows: 1 - anterior cervix, 2 - posterior cervix, 3 & 4 - anterior uterine wall, 5 & 6 - posterior uterine wall. MIKEY: 01/22/2024 TC:5 CPT: 18515
[2024-01-22] MEDS: Cefazolin 2 GM in 0.9% Normal Saline (100mL Bag) 100 ML IV (07:32)
--- NOTE | 2024-01-22 08:45 | PCM.OPRPT ---
Problems Associated Problem List Diagnoses (1) Complete uterovaginal prolapse: Report of Operation Date of Procedure: 01/22/24 Pre-Operative Diagnosis: Incomplete uterovaginal prolapse Post-Operative Diagnosis: Same Surgery/Procedure Performed:: Posterior repair, bilateral sacrospinous ligament fixation with dermis, cystoscopy with bilateral ureteral catheterization Surgeon: Clotilde Lanza Type of Anesthesia: General Estimated Blood Loss (mL): 200 cc Description of Procedure: The patient is a 68-year-old female with uterovaginal prolapse who presents for surgical intervention. She has undergone testing in the office previously. Informed consent has been obtained. She was taken to the operating room and placed on the operating room table. Anesthesia monitored the head, neck, airway, IV access and vital signs throughout the case. Once anesthesia was appropriately administered, she was placed into dorsolithotomy position and was prepped and draped in usual sterile fashion. Dr. Jacek Gant then performed her portion of the procedure and close the vaginal cuff. At this time I removed to the Frye catheter and inserted a cystoscope under direct visualization through the urethra into the urinary bladder. Visualization of the bladder mucosa revealed no evidence of injury, mass, ulceration or other abnormality. Using a 5 Belarusian whistle-tip catheter, each ureteral orifice was gently intubated and the catheter advanced easily without evidence of injury or obstruction to 20 cm on each side. At this time the cystoscope was removed and the Frye catheter was reinserted. The patient was placed in Trendelenburg and exaggerated dorsolithotomy positioning. Attention was turned to the posterior vaginal wall which was injected submucosally with vasopressin for hydrostatic dissection and hemostatic control. A midline incision was made and sharp and blunt dissection was performed bilaterally until the ischial spines were palpable and the sacrospinous ligaments were freed from surrounding tissues. There was a significant amount of oozing from her vaginal mucosa and deeper structures throughout the procedure. There is no heavy bleeding, just oozing throughout. 2-0 Ethibond sutures were passed into the ligaments bilaterally using the saffron device. In the midline, dissection extended all the way up to the apex. The Ethibond sutures were then passed through the dermis and through the vaginal mucosa at the apex. A 2-0 Vicryl was used in interrupted fashion to secure the dermis along the apex. Care was taken to be sure that the enterocele was completely reduced behind the dermis. The dermis was secured circumferentially in the same fashion to the white line laterally all the way down to just above the perineal body where it was attached to the rectovaginal fascia. The perineal body was reconstructed using 3-0 PDS interrupted sutures. Her vaginal introitus is wide and the perineal body repair reflects that. The vaginal mucosa was extremely redundant and was trimmed to size. It was closed using running interlocking 2-0 Vicryl. Multiple sutures were required secondary to the trimming that was needed. Attention was once again turned to the bladder with removal of the Frye catheter and insertion of the cystoscope through the urethra under direct visualization. Once again no injuries were identified on cystoscopic evaluation. The 5 Belarusian whistle-tip catheter was once again used to evaluate each ureter. They were both found to be patent and without injury. The whistle-tip catheters easily advanced to 20 cm bilaterally. At this time the cystoscope and the whistle-tip catheter were removed and the Frye catheter was inserted and reinflated with 10 cc of water in the balloon. The patient's vagina was packed with estrogen cream and vaginal packing. She was awakened and taken to the recovery room in good condition. There were no complications during this procedure. Grafts/Implants Used: Dermis Complications None Admit VTE Documentation VTE Present on Admission: Yes VTE Mechan Device Prophylaxis: SCD's VTE Pharm Prophylaxis ordered?: Yes
[2024-01-22 08:46] LABS: Bedside Glucose 107 mg/dL (74-106)
--- NOTE | 2024-01-22 08:46 | DCINST_ITS ---
Discharge Instructions Diet Discharge Diet: No restrictions Activity Discharge Activity: May Shower May resume sexual activity in: 8 weeks Lifting Restrictions: No lifting over 5 pounds for 8 weeks Additional Activity Instructions:: No strenuous activity, exercise, sexual activity, hot tubs, tub bathing, swimming for 8 weeks Dressing / Incision Call your doctor if your incision/area has: Continuous Slow Oozing, Sudden Increased Bleeding and Foul Smelling Discharge Call your doctor if you observe: Fever of 101 or Higher, Inability to urinate and Inability to have a bowel movement Follow Up Care Please Follow Up With: Klarissa Arteaga MD When: and Dr. Lanza, the office will call to make arrangements. Test Results: Test results from this visit will be discussed in further detail at your follow- up appointment, if applicable. Discharge Plan Admission Attending Provider: Klarissa Arteaga Primary Care Provider: John Adams Consulting Providers: Clotilde Lanza Instructions Print Language: Mozambican Discharge Orders/Prescriptions Prescriptions: No Action aspirin 81 mg tablet,chewable 81 mg PO DAILY fexofenadine [Fozia Allergy] 180 mg tablet 180 mg PO DAILY PRN (Reason: SEASONAL ALLERGIES) (DME) handicap placard See Rx Instructions .Route .MEDSUPPLY Qty: 1 0RF Rx Instructions: length of time=5years Dx=Debility (DME) Handicap placard See Rx Instructions .Route .MEDSUPPLY Qty: 1 0RF Rx Instructions: Duration 5 years, Back problem prevents long ambulation gabapentin 400 mg capsule 400 mg PO BID Qty: 180 1RF pantoprazole 40 mg tablet,delayed release (DR/EC) See Rx Instructions .ROUTE .COMPLEX Qty: 30 6RF Dose Instruction: TAKE 1 TABLET BY MOUTH EVERY MORNING Rx Instructions: TAKE 1 TABLET BY MOUTH EVERY MORNING promethazine 25 mg tablet See Rx Instructions .ROUTE .COMPLEX Qty: 30 1RF Dose Instruction: TAKE 1 TABLET BY MOUTH EVERY 6 HOURS NEEDED NEEDED FOR NAUSEA Rx Instructions: TAKE 1 TABLET BY MOUTH EVERY 6 HOURS NEEDED NEEDED FOR NAUSEA ibuprofen 800 mg tablet 800 mg PO TID cholecalciferol (vitamin D3) [Vitamin D3] 50 mcg (2,000 unit) tablet 50 mcg PO DAILY valsartan 160 mg tablet 160 mg PO DAILY Qty: 90 1RF Other Ambulatory Orders: 12 Lead EKG (Routine) Timeframe: 20240112 Location: None Selected Ordered By: Dr. Klarissa Arteaga Referrals / Follow Up: John Adams DO [Primary Care Provider] - Disposition Disposition (needs filled in before D/C Order can be placed): Home, Self Care
--- NOTE | 2024-01-22 09:22 | PCM.OPRPT ---
Problems Associated Problem List Diagnoses (1) Complete uterovaginal prolapse: (2) S/P vaginal hysterectomy: Report of Operation Date of Procedure: 01/22/24 Pre-Operative Diagnosis: see PL Post-Operative Diagnosis: same Surgery/Procedure Performed:: TVH Description of Surgical Findings:: nl uterus severe prolapse unable to visualize tubes and ovaries Surgeon: Klarissa Arteaga certified low vision therapist: Walter Long Type of Anesthesia: General Specimen's removed: uterus, Drains: rosa Estimated Blood Loss (mL): 100 Fluids Replaced: crystalloid Description of Procedure: Patient was taken to the operating room and was placed under general anesthesia was prepped and draped in normal sterile fashion in the dorsal lithotomy position. Preoperative antibiotics and SCDs and Rosa catheter was placed inside the bladder. Weighted speculum was placed in the vagina and the anterior and posterior lip of the cervix was grasped with 2 To clamps and circumferentially injected with dilute vasopressin. A circumferential incision was made with a scalpel and the posterior cul-de-sac was entered into sharply and a longneck speculum was placed. The anterior cul-de-sac was also dissected down and entered into sharply and the uterosacral ligaments were clamped cut and suture ligated bilaterally followed by the cardinal ligaments which were Clamped cut and suture ligated bilaterally with 0 Monocryl. The uterus serially descended and progressive bites were taken bilaterally up to the level of the utero-ovarian ligament bilaterally which was clamped transected and double ligated with 0 Monocryl suture and 0 Vicryl free tie. Bilateral fallopian tubes and ovaries were unable to be visualized due to the severe posterior cul de sac enterocele prolapse and body habitus. no bso was performed. Excellent hemostasis was noted. The vagina was closed with [id number] 0 Vicryl pop offs including the posterior and anterior peritoneum in the reapproximation. Excellent hemostasis was noted. Then Dr. Lanza began her portion of the procedure. RING STRIKER provided assistance throughout the procedure by holding clamps, suctioning, and providing visualization of the operative field. All direct vessel ligation, suturing and knot-tying was performed by the primary surgeon. Grafts/Implants Used: none Complications none Admit VTE Documentation VTE Present on Admission: No VTE Mechan Device Prophylaxis: SCD's VTE Pharm Prophylaxis ordered?: Yes Multi Select Codes Urinary/Genital Urinary/Genital CPT Codes: 53729 TVH <250 gr uterus
[2024-01-22] MEDS: Vasopressin 20 UNITS/ML Vial (11:00)
[2024-01-22] MEDS: Estrogens,Conj. 1 Tube 1 DOSE (11:28)
--- NOTE | 2024-01-22 11:46 | PCM.POST.ANE ---
Anesthesia: Postop Eval I Current Vital Signs Temperature: 97.4 F Pulse Rate: 99 Blood Pressure: 113/79 Respiratory Rate: 22 Pulse Ox: 97 Oxygen Delivery Method: Room Air Assessment Airway patent: Yes Spontaneous unlabored respirations: Yes Mental status: Awake and Calm nausea: No Vomiting: No Anesthesia Complication: No Fluid Hydration Crystalloid volume administer (ml): 900 Total IV fluid infused: 900 Progress Note Anesthesia document: Postop Eval 1 completed: Yes
--- OUTSIDE RECORDS SUMMARY | 2024-01-22 11:58 | XMS RPT_ITS | CCD ---
Author Organization [facility] Care Team Providers Care Marine Fireman Name Role Phone JENNA EDGAR DO Primary [...] cap(s), 0 Refill(s), 03/27/21 7:47:00 EST, Pharmacy: [facility]/pharmacy #[id number], 165.1, cm, 03/20/21 1:31:00 EST, Height, 118, kg, 03/20/21 1:31:00 EST, Dosing Weight Start Date: 03/20/21 Stop Date: 03/27/21 Status: Ordered famotidine 20 mg oral tablet (2 sources) Histamine-2 Receptor Antagonist Start: 03-20-2021 Pepcid 20 mg oral tablet Dose : 20 mg = 1 tab(s), Oral, qDay, # 30 tab(s), 0 Refill(s), Pharmacy: [facility]/pharmacy #[id number], 165.1, cm, 03/20/21 1:31:00 EST, Height, kg, 03/20/21 1:31:00 EST, Dosing Weight Start Date: 03/20/21 Status: Ordered Start: 01-09-2021 Pepcid 20 mg o ral tablet Dose : 20 mg = 1 tab(s), Oral, qDay, # 30 tab(s), 0 Refill(s), Pharmacy: [facility]/pharmacy #[id number], 165.1, cm, 01/08/21 14:33:00 EDT, Height, kg, 01/08/21 14:33:00 EDT, Dosing Weight Start Date: 01/09/21 Status: Ordered meloxicam 7.5 mg oral tablet (2 sources) Nonsteroidal Anti-inflammatory Drug Start: 03-20-2021 Mobic 7.5 mg oral tablet Dose : 7.5 mg = 1 tab(s), Oral, BIDM, Do not take any other nonsteroidal anti-inflammatories while on meloxicam/Mobic, # 60 tab(s), 0 Refill(s), Pharmacy: [facility]/pharmacy #[id number], 165.1, cm, 03/20/21 1:31:00 EST, Height, kg, 03/20/21 1:31:00 EST, Dosing We... Start Date: 03/20/21 Status: Ordered Start: 01-09-2021 Mobic 7.5 mg o ral tablet Dose : 7.5 mg = 1 tab(s), Oral, BIDM, Do not take any other nonsteroidal anti-inflammatories while on meloxicam/Mobic, # 60 tab(s), 0 Refill(s), Pharmacy: [facility]/pharmacy #[id number], 165.1, cm, 01/08/21 [...] 03/20/21 Stop Date: 03/27/21 Status: Ordered sennosides, RETIREMENT (1 source) Start: 03-20-2021 End: 03-22-2021 take 1 tablet by mouth twice daily Senokot S 50 mg-8.6 mg oral tablet Dose = 2 tab(s), Oral, BID, Take until first bowel movement, then as needed, # 20 tab(s), 0 Refill(s), Pharmacy: [facility]/pharmacy #[id number], 165.1, cm, 03/20/21 [...] Basophil, Absolute 0.00 10 3/mcL Normal 0.00-0.19 [facility] ([place]) Comment on above: Performed By: #### C BC, ADIFF, ANEU, BMP, ALB #### [address] [address] #### GFR #### [address] [address] Basophils/100 WBC (Bld) 0.1 % Normal 0.0-2.5 [facility] ([place]) Comment on above: Performed By: #### C BC, ADIFF, ANEU, BMP, ALB #### [place] [address] #### GFR #### [address] [address] Eosinophil, Absolute 0.00 10 3/mcL Normal 0.00-0.40 [facility] ([place]) Comment on above: Performed By: #### C BC, ADIFF, ANEU, BMP, ALB #### [place] [address] #### GFR #### [address] [address] Eosinophils/100 WBC (Bld) 0.0 % Normal 0.0-7.0 [facility] ([place]) Comment on above: Performed By: #### C BC, ADIFF, ANEU, BMP, ALB #### [place] [address] #### GFR #### [address] [address] Lymphocyte, Absolute 1.20 10 3/mcL Normal 0.77-3.85 [facility] ([place]) Comment on above: Performed By: #### C BC, ADIFF, ANEU, BMP, ALB #### [address] [address] #### GFR #### [address] [address] Lymphocytes/100 WBC (Bld) 6.8 % Low 10.0-50.0 [facility] ([place]) Comment on above: Performed By: #### C BC, ADIFF, ANEU, BMP, ALB #### [place] [address] #### GFR #### [address] [address] Monocyte, Absolute 0.90 10 3/mcL Normal 0.15-1.00 [facility] ([place]) Comment on above: Performed By: #### C BC, ADIFF, ANEU, BMP, ALB #### [place] [address] #### GFR #### [address] [address] Monocytes/100 WBC (Bld) 5.0 % Normal 1.7-13.0 [facility] ([place]) Comment on above: Performed By: #### C BC, ADIFF, ANEU, BMP, ALB #### [place] [address] #### GFR #### [address] [address] Neutrophils/100 WBC (Bld) 88.1 % High 37.0-80.0 [facility] ([place]) Comment on above: Performed By: #### C BC, ADIFF, ANEU, BMP, ALB #### [place] [address] #### GFR #### [address] [address] .GFRon 03-20-2021 GFR 109 ml/min/1.73sqm Normal [facility] ([place]) Comment on above: Result Comment: GFR Population [...] C BC, ADIFF, ANEU, BMP, ALB #### [address] [address] #### GFR #### [address] [address] GFR Non- 90 ml/min/1.73sqm Normal [facility] ([place]) Comment on above: Result Comment: GFR Population [...] C BC, ADIFF, ANEU, BMP, ALB #### [address] [address] #### GFR #### [address] [address] .NEUABSon 03-20-2021 Neutrophil, Absolute 15.30 10 3/mcL High 2.85-6.16 [facility] ([place]) Comment on above: Performed By: #### C BC, ADIFF, ANEU, BMP, ALB #### [place] [address] #### GFR #### [address] [address] BMPon 03-20-2021 BUN/Creatinine Ratio 20 ratio Normal 7-27 [facility] ([place]) Comment on above: Performed By: #### C BC, ADIFF, ANEU, BMP, ALB #### [address] [address] #### GFR #### [place] [address] Calcium [Mass/Vol] 8.9 mg/dL Normal 8.4-10.2 [facility] ([place]) Comment on above: Performed By: #### C BC, ADIFF, ANEU, BMP, ALB #### [place] [address] #### GFR #### [place] [address] Chloride [Moles/Vol] 109 mmol/L High 98-107 [facility] ([place]) Comment on above: Performed By: #### C BC, ADIFF, ANEU, BMP, ALB #### [place] [address] #### GFR #### [place] [address] CO2 [Moles/Vol] 24 mmol/L Normal 23-31 [facility] ([place]) Comment on above: Performed By: #### C BC, ADIFF, ANEU, BMP, ALB #### [place] [address] #### GFR #### [place] [address] Creatinine [Mass/Vol] 0.66 mg/dL Normal 0.55-1.02 [facility] ([place]) Comment on above: Performed By: #### C BC, ADIFF, ANEU, BMP, ALB #### [place] [address] #### GFR #### [place] [address] Electrolyte Balance 11.0 mEq/L Normal [facility] ([place]) Comment on above: Performed By: #### C BC, ADIFF, ANEU, BMP, ALB #### [address] [address] #### GFR #### [address] [address] Glucose [Mass/Vol] 188 mg/dL High 80-115 [facility] ([place]) Comment on above: Performed By: #### C BC, ADIFF, ANEU, BMP, ALB #### [address] [address] #### GFR #### [address] [address] Potassium [Moles/Vol] 4.1 mmol/L Normal 3.5-5.1 [facility] ([place]) Comment on above: Performed By: #### C BC, ADIFF, ANEU, BMP, ALB #### [place] [address] #### GFR #### [address] [address] Sodium [Moles/Vol] 144 mmol/L Normal 136-145 [facility] ([place]) Comment on above: Performed By: #### C BC, ADIFF, ANEU, BMP, ALB #### [address] [address] #### GFR #### [place] [address] Urea nitrogen [Mass/Vol] 13 mg/dL Normal 7-18 [facility] ([place]) Comment on above: Performed By: #### C BC, ADIFF, ANEU, BMP, ALB #### [place] [address] #### GFR #### [address] [address] CBCon 03-20-2021 Erythrocyte distribution width (RBC) [Ratio] 14.4 % Normal 11.5-14.5 [facility] ([place]) Comment on above: Performed By: #### C BC, ADIFF, ANEU, BMP, ALB #### [place] [address] #### GFR #### [place] [address] Hematocrit (Bld) [Volume fraction] 32.0 % Low 37.0-47.0 [facility] ([place]) Comment on above: Performed By: #### C BC, ADIFF, ANEU, BMP, ALB #### [place] [address] #### GFR #### [place] [address] Hgb 10.5 G/dL Low 12.0-16.0 [facility] ([place]) Comment on above: Performed By: #### C BC, ADIFF, ANEU, BMP, ALB #### [place] [address] #### GFR #### [place] [address] MCH (RBC) [Entitic mass] 29.8 pg Normal 27.0-31.2 [facility] ([place]) Comment on above: Performed By: #### C BC, ADIFF, ANEU, BMP, ALB #### [place] [address] #### GFR #### [place] [address] MCHC 32.8 G/dL Low 33.0-37.0 [facility] ([place]) Comment on above: Performed By: #### C BC, ADIFF, ANEU, BMP, ALB #### [place] [address] #### GFR #### [place] [address] MCV (RBC) [Entitic vol] 90.6 fL Normal 80.0-94.0 [facility] ([place]) Comment on above: Performed By: #### C BC, ADIFF, ANEU, BMP, ALB #### [place] [address] #### GFR #### [place] [address] Platelet 177 10 3/mcL Normal 130-400 [facility] ([place]) Comment on above: Performed By: #### C BC, ADIFF, ANEU, BMP, ALB #### [place] [address] #### GFR #### [place] [address] Platelet mean volume (Bld) [Entitic vol] 12.5 fL High 7.4-10.4 [facility] ([place]) Comment on above: Performed By: #### C BC, ADIFF, ANEU, BMP, ALB #### [place] [address] #### GFR #### [place] [address] RBC 3.54 10 6/mcL Low 4.20-5.40 [facility] ([place]) Comment on above: Performed By: #### C BC, ADIFF, ANEU, BMP, ALB #### [place] [address] #### GFR #### [place] [address] WBC 17.30 10 3/mcL High 4.60-10.80 [facility] ([place]) Comment on above: Performed By: #### C BC, ADIFF, ANEU, BMP, ALB #### [place] [address] #### GFR #### [place] [address] LABORATORYOrdered By: Socorro Currie on 03-20-2021 Basophil, [...] of hardware fracture or loosening. Interpreted by: Pawan Bates MD Preliminary Report By: Pawan Bates MD Electronically signed By Pawan Bates MD Dictated Date: 03/19/2021 6:58:19 PM Prelim Date: 03/19/2021 7:02:10 PM Sign Date: 03/19/2021 7:02:10 PM Ordering Provider: JOSE HICKEY [facility] ([place]) .Auto Diffon 03-01-2021 Basophil, Absolute 0.10 10 3/mcL Normal 0.00-0.19 [facility] ([place]) Comment on above: Performed By: #### C BC, ADIFF, ANEU, BMP, ALB #### [place] [address] #### GFR #### [address] [address] Basophils/100 WBC (Bld) 0.8 % Normal 0.0-2.5 [facility] ([place]) Comment on above: Performed By: #### C BC, ADIFF, ANEU, BMP, ALB #### [place] [address] #### GFR #### [address] [address] Eosinophil, Absolute 0.40 10 3/mcL Normal 0.00-0.40 [facility] ([place]) Comment on above: Performed By: #### C BC, ADIFF, ANEU, BMP, ALB #### [place] [address] #### GFR #### [address] [address] Eosinophils/100 WBC (Bld) 4.4 % Normal 0.0-7.0 [facility] ([place]) Comment on above: Performed By: #### C BC, ADIFF, ANEU, BMP, ALB #### [place] [address] #### GFR #### [address] [address] Lymphocyte, Absolute 2.40 10 3/mcL Normal 0.77-3.85 [facility] ([place]) Comment on above: Performed By: #### C BC, ADIFF, ANEU, BMP, ALB #### [place] [address] #### GFR #### [address] [address] Lymphocytes/100 WBC (Bld) 25.7 % Normal 10.0-50.0 [facility] ([place]) Comment on above: Performed By: #### C BC, ADIFF, ANEU, BMP, ALB #### [address] [address] #### GFR #### [address] [address] Monocyte, Absolute 0.80 10 3/mcL Normal 0.15-1.00 [facility] ([place]) Comment on above: Performed By: #### C BC, ADIFF, ANEU, BMP, ALB #### [address] [address] #### GFR #### [address] [address] Monocytes/100 WBC (Bld) 8.2 % Normal 1.7-13.0 [facility] ([place]) Comment on above: Performed By: #### C BC, ADIFF, ANEU, BMP, ALB #### [address] [address] #### GFR #### [address] [address] Neutrophils/100 WBC (Bld) 60.9 % Normal 37.0-80.0 [facility] ([place]) Comment on above: Performed By: #### C BC, ADIFF, ANEU, BMP, ALB #### [address] [address] #### GFR #### [address] [address] .GFRon 03-01-2021 GFR 113 ml/min/1.73sqm Normal [facility] ([place]) Comment on above: Result Comment: GFR Population [...] C BC, ADIFF, ANEU, BMP, ALB #### [address] [address] #### GFR #### [address] [address] GFR Non- 93 ml/min/1.73sqm Normal [facility] ([place]) Comment on above: Result Comment: GFR Population [...] C BC, ADIFF, ANEU, BMP, ALB #### [place] [address] #### GFR #### [address] [address] .NEUABSon 03-01-2021 Neutrophil, Absolute 5.70 10 3/mcL Normal 2.85-6.16 [facility] ([place]) Comment on above: Performed By: #### C BC, ADIFF, ANEU, BMP, ALB #### [address] [address] #### GFR #### [address] [address] ALBon 03-01-2021 Albumin Level 3.3 G/dL Low 3.4-4.8 [facility] ([place]) Comment on above: Performed By: #### C BC, ADIFF, ANEU, BMP, ALB #### [address] [address] #### GFR #### [address] [address] BMPon 03-01-2021 BUN/Creatinine Ratio 20 ratio Normal 7-27 [facility] ([place]) Comment on above: Performed By: #### C BC, ADIFF, ANEU, BMP, ALB #### [address] [address] #### GFR #### [place] [address] Calcium [Mass/Vol] 8.7 mg/dL Normal 8.4-10.2 [facility] ([place]) Comment on above: Performed By: #### C BC, ADIFF, ANEU, BMP, ALB #### [place] [address] #### GFR #### [place] [address] Chloride [Moles/Vol] 110 mmol/L High 98-107 [facility] ([place]) Comment on above: Performed By: #### C BC, ADIFF, ANEU, BMP, ALB #### [place] [address] #### GFR #### [place] [address] CO2 [Moles/Vol] 25 mmol/L Normal 23-31 [facility] ([place]) Comment on above: Performed By: #### C BC, ADIFF, ANEU, BMP, ALB #### [place] [address] #### GFR #### [place] [address] Creatinine [Mass/Vol] 0.64 mg/dL Normal 0.55-1.02 [facility] ([place]) Comment on above: Performed By: #### C BC, ADIFF, ANEU, BMP, ALB #### [address] [address] #### GFR #### [place] [address] Electrolyte Balance 9.0 mEq/L Normal [facility] ([place]) Comment on above: Performed By: #### C BC, ADIFF, ANEU, BMP, ALB #### [address] [address] #### GFR #### [address] [address] Glucose [Mass/Vol] 101 mg/dL Normal 80-115 [facility] ([place]) Comment on above: Performed By: #### C BC, ADIFF, ANEU, BMP, ALB #### [address] [address] #### GFR #### [address] [address] Potassium [Moles/Vol] 3.8 mmol/L Normal 3.5-5.1 [facility] ([place]) Comment on above: Performed By: #### C BC, ADIFF, ANEU, BMP, ALB #### [place] [address] #### GFR #### [address] [address] Sodium [Moles/Vol] 144 mmol/L Normal 136-145 [facility] ([place]) Comment on above: Performed By: #### C BC, ADIFF, ANEU, BMP, ALB #### [address] [address] #### GFR #### [address] [address] Urea nitrogen [Mass/Vol] 13 mg/dL Normal 7-18 [facility] ([place]) Comment on above: Performed By: #### C BC, ADIFF, ANEU, BMP, ALB #### [address] [address] #### GFR #### [address] [address] CBCon 03-01-2021 Erythrocyte distribution width (RBC) [Ratio] 15.1 % High 11.5-14.5 [facility] ([place]) Comment on above: Performed By: #### C BC, ADIFF, ANEU, BMP, ALB #### [place] [address] [place], [place] [address] #### GFR #### [place] [address] Hematocrit (Bld) [Volume fraction] 36.1 % Low 37.0-47.0 [facility] ([place]) Comment on above: Performed By: #### C BC, ADIFF, ANEU, BMP, ALB #### [place] [address] #### GFR #### [place] [address] Hgb 11.8 G/dL Low 12.0-16.0 [facility] ([place]) Comment on above: Performed By: #### C BC, ADIFF, ANEU, BMP, ALB #### [place] [address] #### GFR #### [place] [address] MCH (RBC) [Entitic mass] 30.1 pg Normal 27.0-31.2 [facility] ([place]) Comment on above: Performed By: #### C BC, ADIFF, ANEU, BMP, ALB #### [place] [address] #### GFR #### [place] [address] MCHC 32.6 G/dL Low 33.0-37.0 [facility] ([place]) Comment on above: Performed By: #### C BC, ADIFF, ANEU, BMP, ALB #### [place] [address] #### GFR #### [place] [address] MCV (RBC) [Entitic vol] 92.4 fL Normal 80.0-94.0 [facility] ([place]) Comment on above: Performed By: #### C BC, ADIFF, ANEU, BMP, ALB #### [place] [address] #### GFR #### [place] [address] Platelet 185 10 3/mcL Normal 130-400 [facility] ([place]) Comment on above: Performed By: #### C BC, ADIFF, ANEU, BMP, ALB #### [place] [address] #### GFR #### [place] [address] Platelet mean volume (Bld) [Entitic vol] 12.8 fL High 7.4-10.4 [facility] ([place]) Comment on above: Performed By: #### C BC, ADIFF, ANEU, BMP, ALB #### [place] [address] #### GFR #### [place] [address] RBC 3.91 10 6/mcL Low 4.20-5.40 [facility] ([place]) Comment on above: Performed By: #### C BC, ADIFF, ANEU, BMP, ALB #### [place] [address] #### GFR #### [place] [address] WBC 9.40 10 3/mcL Normal 4.60-10.80 [facility] ([place]) Comment on above: Performed By: #### C BC, ADIFF, ANEU, BMP, ALB #### [place] [address] #### GFR #### [place] [address] CT KNEE W/O CONTRAST RIGHTon 03-01-2021 CT [...] 03/01/2021 4:20:23 PM Ordering Provider: JOSE HICKEY [facility] ([place]) LABORATORYOrdered By: Will Prescott on 03-01-2021 Albumin [...] Basophil, Absolute 0.00 10 3/mcL Normal 0.00-0.19 [facility] ([place]) Comment on above: Performed By: #### C BC, ADIFF, ANEU #### [place] [address] [place], [place] [address] #### BMP, GFR #### [address] [address] Basophils/100 WBC (Bld) 0.1 % Normal 0.0-2.5 [facility] ([place]) Comment on above: Performed By: #### C BC, ADIFF, ANEU #### [place] [address] #### BMP, GFR #### [address] [address] Eosinophil, Absolute 0.00 10 3/mcL Normal 0.00-0.40 [facility] ([place]) Comment on above: Performed By: #### C BC, ADIFF, ANEU #### [place] [address] #### BMP, GFR #### [address] [address] Eosinophils/100 WBC (Bld) 0.0 % Normal 0.0-7.0 [facility] ([place]) Comment on above: Performed By: #### C BC, ADIFF, ANEU #### [place] [address] #### BMP, GFR #### [address] [address] Lymphocyte, Absolute 1.50 10 3/mcL Normal 0.77-3.85 [facility] ([place]) Comment on above: Performed By: #### C BC, ADIFF, ANEU #### [place] [address] #### BMP, GFR #### [address] [address] Lymphocytes/100 WBC (Bld) 8.1 % Low 10.0-50.0 [facility] ([place]) Comment on above: Performed By: #### C BC, ADIFF, ANEU #### [place] [address] #### BMP, GFR #### [address] [address] Monocyte, Absolute 1.00 10 3/mcL Normal 0.15-1.00 [facility] ([place]) Comment on above: Performed By: #### C BC, ADIFF, ANEU #### [address] [address] #### BMP, GFR #### [address] [address] Monocytes/100 WBC (Bld) 5.5 % Normal 1.7-13.0 [facility] ([place]) Comment on above: Performed By: #### C BC, ADIFF, ANEU #### [address] [address] #### BMP, GFR #### [address] [address] Neutrophils/100 WBC (Bld) 86.3 % High 37.0-80.0 [facility] ([place]) Comment on above: Performed By: #### C BC, ADIFF, ANEU #### [address] [address] #### BMP, GFR #### [address] [address] .GFRon 01-09-2021 GFR Non- 75 ml/min/1.73sqm Normal [facility] ([place]) Comment on above: Result [...] C BC, ADIFF, ANEU, BMP, ALB #### [address] [address] #### GFR #### [address] [address] GFR 91 ml/min/1.73sqm Normal [facility] ([place]) Comment on above: Result Comment: GFR Population [...] C BC, ADIFF, ANEU, BMP, ALB #### [place] [address] #### GFR #### [place] [address] .NEUABSon 01-09-2021 Neutrophil, Absolute 15.90 10 3/mcL High 2.85-6.16 [facility] ([place]) Comment on above: Performed By: #### C BC, ADIFF, ANEU, BMP, ALB #### [place] [address] #### GFR #### [address] [address] BMPon 01-09-2021 BUN/Creatinine Ratio 21 ratio Normal 7-27 [facility] ([place]) Comment on above: Performed By: #### C BC, ADIFF, ANEU, BMP, ALB #### [place] [address] #### GFR #### [place] [address] Calcium [Mass/Vol] 8.7 mg/dL Normal 8.4-10.2 [facility] ([place]) Comment on above: Performed By: #### C BC, ADIFF, ANEU, BMP, ALB #### [place] [address] #### GFR #### [address] [address] Chloride [Moles/Vol] 108 mmol/L High 98-107 [facility] ([place]) Comment on above: Performed By: #### C BC, ADIFF, ANEU, BMP, ALB #### [address] [address] #### GFR #### [address] [address] CO2 [Moles/Vol] 25 mmol/L Normal 23-31 [facility] ([place]) Comment on above: Performed By: #### C BC, ADIFF, ANEU, BMP, ALB #### [address] [address] #### GFR #### [address] [address] Creatinine [Mass/Vol] 0.77 mg/dL Normal 0.55-1.02 [facility] ([place]) Comment on above: Performed By: #### C BC, ADIFF, ANEU, BMP, ALB #### [address] [address] #### GFR #### [address] [address] Electrolyte Balance 10.0 mEq/L Normal [facility] ([place]) Comment on above: Performed By: #### C BC, ADIFF, ANEU, BMP, ALB #### [address] [address] #### GFR #### [address] [address] Glucose [Mass/Vol] 152 mg/dL High 80-115 [facility] ([place]) Comment on above: Performed By: #### C BC, ADIFF, ANEU, BMP, ALB #### [address] [address] #### GFR #### [address] [address] Potassium [Moles/Vol] 4.1 mmol/L Normal 3.5-5.1 [facility] ([place]) Comment on above: Performed By: #### C BC, ADIFF, ANEU, BMP, ALB #### [address] [address] #### GFR #### [address] [address] Sodium [Moles/Vol] 143 mmol/L Normal 136-145 [facility] ([place]) Comment on above: Performed By: #### C BC, ADIFF, ANEU, BMP, ALB #### [address] [address] #### GFR #### [address] [address] Urea nitrogen [Mass/Vol] 16 mg/dL Normal 7-18 [facility] ([place]) Comment on above: Performed By: #### C BC, ADIFF, ANEU, BMP, ALB #### [address] [address] #### GFR #### [address] [address] CBCon 01-09-2021 Erythrocyte distribution width (RBC) [Ratio] 15.9 % High 11.5-14.5 [facility] ([place]) Comment on above: Performed By: #### C BC, ADIFF, ANEU #### [address] [address] #### BMP, GFR #### [address] [address] Hematocrit (Bld) [Volume fraction] 31.6 % Low 37.0-47.0 [facility] ([place]) Comment on above: Performed By: #### C BC, ADIFF, ANEU #### [address] [address] #### BMP, GFR #### [address] [address] Hgb 10.2 G/dL Low 12.0-16.0 [facility] ([place]) Comment on above: Performed By: #### C BC, ADIFF, ANEU #### [address] [address] #### BMP, GFR #### [address] [address] MCH (RBC) [Entitic mass] 29.7 pg Normal 27.0-31.2 [facility] ([place]) Comment on above: Performed By: #### C BC, ADIFF, ANEU #### [place] [address] #### BMP, GFR #### [place] [address] MCHC 32.4 G/dL Low 33.0-37.0 [facility] ([place]) Comment on above: Performed By: #### C BC, ADIFF, ANEU #### [place] [address] #### BMP, GFR #### [place] [address] MCV (RBC) [Entitic vol] 91.9 fL Normal 80.0-94.0 [facility] ([place]) Comment on above: Performed By: #### C BC, ADIFF, ANEU #### [place] [address] #### BMP, GFR #### [place] [address] Platelet 179 10 3/mcL Normal 130-400 [facility] ([place]) Comment on above: Performed By: #### C BC, ADIFF, ANEU #### [place] [address] #### BMP, GFR #### [place] [address] Platelet mean volume (Bld) [Entitic vol] 13.1 fL High 7.4-10.4 [facility] ([place]) Comment on above: Performed By: #### C BC, ADIFF, ANEU #### [place] [address] #### BMP, GFR #### [place] [address] RBC 3.44 10 6/mcL Low 4.20-5.40 [facility] ([place]) Comment on above: Performed By: #### C BC, ADIFF, ANEU #### [address] [address] #### BMP, GFR #### [address] [address] WBC 18.40 10 3/mcL High 4.60-10.80 [facility] ([place]) Comment on above: Performed By: #### C BC, ADIFF, ANEU #### [address] [address] #### BMP, GFR #### [place] [address] XR KNEE 1 OR 2 VIEWS LEFTon [...] 01/08/2021 12:04:47 PM Ordering Provider: JOSE Perkins [facility] ([place]) .Auto Diffon 12-21-2020 Basophil, Absolute 0.10 10 3/mcL Normal 0.00-0.19 [facility] ([place]) Comment on above: Performed By: #### C BC, ADIFF, ANEU, BMP, ALB #### [address] [address] #### GFR #### [address] [address] Basophils/100 WBC (Bld) 0.8 % Normal 0.0-2.5 [facility] ([place]) Comment on above: Performed By: #### C BC, ADIFF, ANEU, BMP, ALB #### [place] [address] #### GFR #### [address] [address] Eosinophil, Absolute 0.30 10 3/mcL Normal 0.00-0.40 [facility] ([place]) Comment on above: Performed By: #### C BC, ADIFF, ANEU, BMP, ALB #### [place] [address] #### GFR #### [address] [address] Eosinophils/100 WBC (Bld) 3.3 % Normal 0.0-7.0 [facility] ([place]) Comment on above: Performed By: #### C BC, ADIFF, ANEU, BMP, ALB #### [place] [address] #### GFR #### [address] [address] Lymphocyte, Absolute 2.10 10 3/mcL Normal 0.77-3.85 [facility] ([place]) Comment on above: Performed By: #### C BC, ADIFF, ANEU, BMP, ALB #### [place] [address] #### GFR #### [address] [address] Lymphocytes/100 WBC (Bld) 21.6 % Normal 10.0-50.0 [facility] ([place]) Comment on above: Performed By: #### C BC, ADIFF, ANEU, BMP, ALB #### [place] [address] #### GFR #### [address] [address] Monocyte, Absolute 0.70 10 3/mcL Normal 0.15-1.00 [facility] ([place]) Comment on above: Performed By: #### C BC, ADIFF, ANEU, BMP, ALB #### [place] [address] #### GFR #### [address] [address] Monocytes/100 WBC (Bld) 7.6 % Normal 1.7-13.0 [facility] ([place]) Comment on above: Performed By: #### C BC, ADIFF, ANEU, BMP, ALB #### [address] [address] #### GFR #### [address] [address] Neutrophils/100 WBC (Bld) 66.7 % Normal 37.0-80.0 [facility] ([place]) Comment on above: Performed By: #### C BC, ADIFF, ANEU, BMP, ALB #### [address] [address] #### GFR #### [address] [address] .GFRon 12-21-2020 GFR 117 ml/min/1.73sqm Normal [facility] ([place]) Comment on above: Result Comment: GFR Population [...] C BC, ADIFF, ANEU, BMP, ALB #### [address] [address] #### GFR #### [address] [address] GFR Non- 96 ml/min/1.73sqm Normal [facility] ([place]) Comment on above: Result Comment: GFR Population [...] C BC, ADIFF, ANEU, BMP, ALB #### [place] [address] #### GFR #### [place] [address] .NEUABSon 12-21-2020 Neutrophil, Absolute 6.40 10 3/mcL High 2.85-6.16 [facility] ([place]) Comment on above: Performed By: #### C BC, ADIFF, ANEU, BMP, ALB #### [place] [address] #### GFR #### [place] [address] ALBon 12-21-2020 Albumin Level 3.4 G/dL Normal 3.4-4.8 [facility] ([place]) Comment on above: Performed By: #### C BC, ADIFF, ANEU, BMP, ALB #### [place] [address] #### GFR #### [place] [address] BMPon 12-21-2020 BUN/Creatinine Ratio 18 ratio Normal 7-27 [facility] ([place]) Comment on above: Performed By: #### C BC, ADIFF, ANEU, BMP, ALB #### [place] [address] #### GFR #### [place] [address] Calcium [Mass/Vol] 9.0 mg/dL Normal 8.4-10.2 [facility] ([place]) Comment on above: Performed By: #### C BC, ADIFF, ANEU, BMP, ALB #### [address] [address] #### GFR #### [address] [address] Chloride [Moles/Vol] 107 mmol/L Normal 98-107 [facility] ([place]) Comment on above: Performed By: #### C BC, ADIFF, ANEU, BMP, ALB #### [address] [address] #### GFR #### [address] [address] CO2 [Moles/Vol] 23 mmol/L Normal 23-31 [facility] ([place]) Comment on above: Performed By: #### C BC, ADIFF, ANEU, BMP, ALB #### [place] [address] #### GFR #### [place] [address] Creatinine [Mass/Vol] 0.62 mg/dL Normal 0.55-1.02 [facility] ([place]) Comment on above: Performed By: #### C BC, ADIFF, ANEU, BMP, ALB #### [place] [address] #### GFR #### [place] [address] Electrolyte Balance 13.0 mEq/L Normal [facility] ([place]) Comment on above: Performed By: #### C BC, ADIFF, ANEU, BMP, ALB #### [place] [address] #### GFR #### [place] [address] Glucose [Mass/Vol] 104 mg/dL Normal 80-115 [facility] ([place]) Comment on above: Performed By: #### C BC, ADIFF, ANEU, BMP, ALB #### [address] [address] #### GFR #### [address] [address] Potassium [Moles/Vol] 3.8 mmol/L Normal 3.5-5.1 [facility] ([place]) Comment on above: Performed By: #### C BC, ADIFF, ANEU, BMP, ALB #### [address] [address] #### GFR #### [address] [address] Sodium [Moles/Vol] 143 mmol/L Normal 136-145 [facility] ([place]) Comment on above: Performed By: #### C BC, ADIFF, ANEU, BMP, ALB #### [address] [address] #### GFR #### [address] [address] Urea nitrogen [Mass/Vol] 11 mg/dL Normal 7-18 [facility] ([place]) Comment on above: Performed By: #### C BC, ADIFF, ANEU, BMP, ALB #### [address] [address] #### GFR #### [address] [address] CBCon 12-21-2020 Erythrocyte distribution width (RBC) [Ratio] 15.8 % High 11.5-14.5 [facility] ([place]) Comment on above: Order Comment: Pre-A dmission Testing Performed By: #### C BC, ADIFF, ANEU, BMP, ALB #### [address] [address] #### GFR #### [address] [address] Hematocrit (Bld) [Volume fraction] 36.2 % Low 37.0-47.0 [facility] ([place]) Comment on above: Order Comment: Pre-A dmission Testing Performed By: #### C BC, ADIFF, ANEU, BMP, ALB #### [place] [address] #### GFR #### [place] [address] Hgb 12.1 G/dL Normal 12.0-16.0 [facility] ([place]) Comment on above: Order Comment: Pre-A dmission Testing Performed By: #### C BC, ADIFF, ANEU, BMP, ALB #### [place] [address] #### GFR #### [place] [address] MCH (RBC) [Entitic mass] 29.7 pg Normal 27.0-31.2 [facility] ([place]) Comment on above: Order Comment: Pre-A dmission Testing Performed By: #### C BC, ADIFF, ANEU, BMP, ALB #### [place] [address] #### GFR #### [place] [address] MCHC 33.3 G/dL Normal 33.0-37.0 [facility] ([place]) Comment on above: Order Comment: Pre-A dmission Testing Performed By: #### C BC, ADIFF, ANEU, BMP, ALB #### [place] [address] #### GFR #### [place] [address] MCV (RBC) [Entitic vol] 89.2 fL Normal 80.0-94.0 [facility] ([place]) Comment on above: Order Comment: Pre-A dmission Testing Performed By: #### C BC, ADIFF, ANEU, BMP, ALB #### [place] [address] #### GFR #### [place] [address] Platelet 176 10 3/mcL Normal 130-400 [facility] ([place]) Comment on above: Order Comment: Pre-A dmission Testing Performed By: #### C BC, ADIFF, ANEU, BMP, ALB #### [place] [address] [place], [place] [address] #### GFR #### [place] [address] Platelet mean volume (Bld) [Entitic vol] 13.1 fL High 7.4-10.4 [facility] ([place]) Comment on above: Order Comment: Pre-A dmission Testing Performed By: #### C BC, ADIFF, ANEU, BMP, ALB #### [address] [address] #### GFR #### [place] [address] RBC 4.05 10 6/mcL Low 4.20-5.40 [facility] ([place]) Comment on above: Order Comment: Pre-A dmission Testing Performed By: #### C BC, ADIFF, ANEU, BMP, ALB #### [address] [address] #### GFR #### [place] [address] WBC 9.70 10 3/mcL Normal 4.60-10.80 [facility] ([place]) Comment on above: Order Comment: Pre-A dmission Testing Performed By: #### C BC, ADIFF, ANEU, BMP, ALB #### [address] [address] #### GFR #### [place] [address] CT KNEE W/O CONTRAST LEFTon 12-21-2020 CT [...] 12/21/2020 1:15:56 PM Ordering Provider: JOSE HICKEY [facility] ([place]) Jean Claude 08-31-2020 EMILIO Telephone (STED) MINERVA MEHTA ([id number]) 1955 F Date Time Provider Department 08/31/20 CELESTE FOSTER During your visit today, we recorded the following information about you: Celeste Foster MD 08/31/2020 3:10 PM Signed Please schedule this patient in the new weight management slots on Thursday afternoons Please let me know if there are any questions about the slots. MD Lance Muñoz [facility] 08/31/2020 3:25 PM Signed Attempted to reach patient Left vm to return call and schedule with Dr Foster for weight mgmt consultation Mychart not active Please schedule when patient returns call Niki Mera [facility] 09/03/2020 9:54 AM Signed Patient is [...] Encounter Status:Closed by LANCE RICHARD on 08/31/20 [facility] CNOVon 08-27-2020 CNOV Office Visit (ART ) MINERVA MEHTA ([id number]) 1955 F Date Time Provider Department 08/27/20 3:30 PM JOSE ADAME During your visit today, we recorded the following information about you: Weight Height 122.5 kg 1.651 m Jose Adame MD 08/28/2020 7:41 AM Signed Jose Adame MD Department of Orthopaedics Orth[facility] [address] [place] [address] Dept: [phone] Dept August 27, 2020 CHIEF COMPLAINT: New and Knee Pain of the Right Knee and New and Knee Pain of the Left Knee HPI Patient here today for bilateral knee pain x 7-8 years. States she has seen Orthopaedics at [facility] and was told to lose weight. She has not been able to exercise due to knee pain. Gives history of Rheumatoid arthritis. X-ray at [facility] today. ASSESSMENT: M17.0 Primary osteoarthritis of [...] IMAGING: IMPRESSION: Advanced degenerative changes as described. Premises Technician: BENITEZ ? Transcribe Date/Time: Aug 27 2020 [...] HEENT (negative (more content not included)... Normal [facility] XR KNEE 4V AP/PA/LAT/MERCH B ILon 08-27-2020 [...] space. IMPRESSION: Advanced degenerative changes as described. Premises Technician: BENITEZ Transcribe Date/Time: Aug 27 2020 3:27P Dictated by : DEMETRI HALL MD This examination was interpreted and the report reviewed and electronically signed by: DEMETRI HALL MD on Aug 27 2020 3:29PM EST [id number] Normal [facility] Vital Signs Date Time Vital Sign Value Performing Clinician Faci lity 03-20-2021 15:31-0500 Body temperature 97.7 [degF] DR JOSE HICKEY MD [facility] 03-20-2021 15:31-0500 Diastolic Blood Pressure NBP [address] JOSE HICEKY MD [facility] 03-20-2021 15:31-0500 Heart rate 87 /min DR JOSE HICKEY MD [facility] 03-20-2021 15:31-0500 Respiratory rate 18 /min DR JOSE HICKEY MD [facility] 03-20-2021 15:31-0500 Systolic Blood Pressure NBP [address] JOSE HICKEY MD [facility] 03-20-2021 11:20-0500 Body temperature 97.88 [degF] DR JOSE HICKEY MD [facility] 03-20-2021 11:20-0500 Diastolic Blood Pressure NBP [address] JOSE HICKEY MD [facility] 03-20-2021 11:20-0500 Heart rate 84 /min DR JOSE HICKEY MD [facility] 03-20-2021 11:20-0500 Respiratory rate 18 /min DR JOSE HICKEY MD [facility] 03-20-2021 11:20-0500 Systolic Blood Pressure NBP [address] JOSE HICKEY MD [facility] 03-20-2021 07:33-0500 Body temperature 98.42 [degF] DR JOSE HICKEY MD [facility] 03-20-2021 07:33-0500 Diastolic Blood Pressure NBP [address] JOSE HICKEY MD [facility] 03-20-2021 07:33-0500 Heart rate 81 /min DR JOSE HICKEY MD [facility] 03-20-2021 07:33-0500 Respiratory rate 18 /min DR JOSE HICKEY MD [facility] 03-20-2021 07:33-0500 Systolic Blood Pressure NBP [address] JOSE HICKEY MD [facility] 03-20-2021 03:27-0500 Heart rate 88 /min DR JOSE HICKEY MD [facility] 03-20-2021 00:42-0500 Heart rate 87 /min DR JOSE HICKEY MD [facility] 03-19-2021 20:28-0500 Diastolic blood pressure 70 mm[Hg] DR JOSE HICKEY MD [facility] 03-19-2021 20:28-0500 Heart rate 94 /min DR JOSE HICKEY MD [facility] 03-19-2021 20:28-0500 Systolic blood pressure 138 mm[Hg] DR JOSE HICKEY MD [facility] 03-19-2021 17:10-0500 Body temperature 96.8 [degF] DR JOSE HICKEY MD [facility] 03-19-2021 12:16-0500 Body height 165.[address] JOSE HICKEY MD [facility] 03-19-2021 12:16-0500 Body weight [address] JOSE HICKEY MD [facility] 03-19-2021 12:16-0500 Body weight 43.29 kg/m2 DR JOSE HICKEY MD [facility] 03-19-2021 12:04-0500 Body temperature 97.34 [degF] DR JOSE HICKEY MD [facility] 03-19-2021 12:04-0500 Diastolic blood pressure 67 mm[Hg] DR JOSE HICKEY MD [facility] 03-19-2021 12:04-0500 Heart rate 72 /min DR JOSE HICKEY MD [facility] 03-19-2021 12:04-0500 Systolic blood pressure 152 mm[Hg] DR JOSE HICKEY MD [facility] Encounters Encounter Date Encounter Type Care Provider Facility Start: 03-19-2021 End: 03-20-[address] JOSE HICKEY MD [facility] Start: 03-01-2021 End: 03-01-[address] JOSE HICKEY MD [facility] Procedures Date Procedure Procedure Detail Performing Clinician [...] mRNA-[address] JOSE HICKEY MD [facility] Comment on above: Result Comment: 2020: TPV65 07-18-2020 SARS-CoV-2 (COVID-19 ) mRNA-[address] JOSE HICKEY MD [facility] Comment on above: Result Comment: 2020: TPV65 10-27-2017 tetanus toxoid, redu henry diphtheria toxoid, and acellular pertussis vaccine, adsorbed DR JOSE HICKEY MD [facility] 03-09-2014 zoster vaccine, live DR EVE HICKEY MD [facility] Social History Date Type Detail Facility Start: 12-21-2020 Never smoked t obacco (finding) [facility] Sex Assigned At [facility] Hospital Discharge instructions 03-20-2021 Note Date & Type Note Facility 03-20-2021 Hospital Discharg e instructions Patient Education 03/20/2021 07:46:05 5 - [facility] Post-op Instruction 11/2016 ([id number]) [facility] Post-operative Instructions PLEASE FOLLOW [facility] POST-OP INSTRUCTIONS GIVEN WATCH FOR SIGNS OF INFECTION: call the office ([phone]) if experencing any of the following: (Usually [...] on your follow up instructions. Form: 338A (32595) R: 08/24 Follow Up Care 02/28/2021 15:44:07 With:[facility] Address: [address] [place] [phone] When:03/22/2021 10:00:00 Comments:This is your first physical therapy appointment. Follow-up as scheduled. With:JOSE HICKEY MD Address: [address] [place] [phone] When:04/01/2021 14:00:00 Comments:This is your post-op appointment and is in the [place] office. Follow-up as scheduled. [facility] Progress note 08-27-2020 Note Date & Type Note Facility 08-27-2020 Note HNO ID: [id number] Author: Jose Adame MD Service: ? Author Type: Physician Type: Progress Notes Filed: 08/28/2020 7:41 AM Note Text: Jose Adame MD Department of Orthopaedics Orth[facility] [address] [facility] [address] Dept: [phone] Dept August 27, 2020 CHIEF COMPLAINT: New and Knee Pain of the Right Knee and New and Knee Pain of the Left Knee HPI Patient here today for bilateral knee pain x 7-8 years. States she has seen Orthopaedics at [facility] and was told to lose weight. She has not been able to exercise due to knee pain. Gives history of Rheumatoid arthritis. X-ray at [facility] today. ASSESSMENT: M17.0 Primary osteoarthritis of [...] IMAGING: IMPRESSION: Advanced degenerative changes as described. Premises Technician: BENITEZ ? Transcribe Date/Time: Aug 27 2020 [...] Psych (no depres (more content not included)... [facility] Progress note 08-27-2020 Note Date & Type Note Facility 08-27-2020 Note HNO ID: [id number] Author: RT Salty(R) Service: ? Author Type: Car Examiner Type: Progress Notes Filed: 08/27/2020 3:14 PM [...] RT Salty(R) August 27, 2020 3:13 PM [facility] Evaluation + Plan note Note Date & Type Note Facility Evaluation + Plan note Future Appointments [facility] Hospital course Narrative Note Date & Type Note Facility Hospital course Narrative No data available for this section [facility] Hospital Discharge instructions Note Date & Type Note Facility Hospital Discharge instructions No data available for this section [facility] Summary Purpose Family History No Family History Records FoundNo Family History Records Found Advance Directives No Advanced Directives Records FoundNo Advanced Directives Records Found Additional Source Comments INFORMATION SOURCE (unrecogn ized section and content) DATE CREATED AUTHOR 03/28/2021 [facility] ([place]) DATE CREATED AUTHOR AUTHOR'S LISBET ATCOLLIN 05/21/2021 [facility] FOR RECORDS PERTAINING TO PATIENTS WHO ARE [...] BE BASED ON THE PRIMARY CLINICAL RECORDS. [employer] [facility]. provides no warranty or guarantee of the accuracy or completeness of information in this document.
--- NOTE | 2024-01-22 14:33 | POSTOPAN2_ITS ---
Anesthesia Postop Eval I Sum Postop Eval Completion status Anesthesia document: Postop Eval 1 completed: Yes Anesthesia Postop Eval I Summary Anesthesia Postop Eval I Summary: Anesthesia Postop Eval I: Assessment Summary Airway patent Yes 01/22/24 11:46 NEUROLOGY TEACHER.SCHR Spontaneous unlabored Yes 01/22/24 11:46 NEUROLOGY TEACHER.SCHR respirations Mental status Awake,Calm 01/22/24 11:46 NEUROLOGY TEACHER.SCHR nausea No 01/22/24 11:46 NEUROLOGY TEACHER.SCHR Vomiting No 01/22/24 11:46 NEUROLOGY TEACHER.SCHR Anesthesia Postop Eval I: Fluid Summary Crystalloid volume administer 900 01/22/24 11:46 NEUROLOGY TEACHER.SCHR (ml) Colloids volume administered ( ml) Blood Product volume administered (ml) Total IV fluid infused 900 01/22/24 11:46 NEUROLOGY TEACHER.SCHR Anesthesia Postop Eval I: Summary Notes Anesthesia Complication No 01/22/24 11:46 NEUROLOGY TEACHER.SCHR Anesthesia Complication Comment: Post-operative progress note Anesthesia: Postop Eval II Evaluation Mental status: Awake Pain Level: 0 nausea: No Vomiting: No
--- NOTE | 2024-01-22 14:33 | PCM.POSTANE2 ---
Anesthesia Postop Eval I Sum Postop Eval Completion status Anesthesia document: Postop Eval 1 completed: Yes Anesthesia Postop Eval I Summary Anesthesia Postop Eval I Summary: Anesthesia Postop Eval I: Assessment Summary Airway patent Yes 01/22/24 11:46 PLANT DIRECTOR.[email or web address] Spontaneous unlabored Yes 01/22/24 11:46 PLANT DIRECTOR.SCHR respirations Mental status Awake,Calm 01/22/24 11:46 PLANT DIRECTOR.SCHR nausea No 01/22/24 11:46 PLANT DIRECTOR.SCHR Vomiting No 01/22/24 11:46 PLANT DIRECTOR.SCHR Anesthesia Postop Eval I: Fluid Summary Crystalloid volume administer 900 01/22/24 11:46 PLANT DIRECTOR.SCHR (ml) Colloids volume administered ( ml) Blood Product volume administered (ml) Total IV fluid infused 900 01/22/24 11:46 PLANT DIRECTOR.SCHR Anesthesia Postop Eval I: Summary Notes Anesthesia Complication No 01/22/24 11:46 PLANT DIRECTOR.SCHR Anesthesia Complication Comment: Post-operative progress note Anesthesia: Postop Eval II Evaluation Mental status: Awake Pain Level: 0 nausea: No Vomiting: No
[2024-01-22] MEDS: Docusate Sodium 100 MG Capsule PO ×2 (14:43→22:14)
[2024-01-22] MEDS: Lactated Ringers 1,000 ML 70 ML IV (14:44)
[2024-01-22] MEDS: 0.9% Saline Lock 10 ML Syringe IV (15:40)
[2024-01-22] MEDS: Ketorolac 15 MG/ML Vial IV ×2 (15:40→22:14)
[2024-01-22] MEDS: Cephalexin 500 MG Capsule PO (22:14)
[2024-01-22] MEDS: Gabapentin 400 MG Capsule PO (22:14)
[2024-01-23 00:46] VITALS: BP 125/54; PULSE 52; RESP 18; TEMP 36.5; O2SAT 97
[2024-01-23] MEDS: Acetaminophen 500 MG Tablet 1000 MG PO ×2 (00:52→07:08)
[2024-01-23] MEDS: Ketorolac 15 MG/ML Vial IV ×2 (03:16→10:01)
[2024-01-23 05:24] VITALS: BP 119/51; PULSE 50; RESP 18; TEMP 36.6; O2SAT 96
[2024-01-23 06:21] LABS: Hematocrit 38.4 % (37-47); Hemoglobin 11.5 g/dL (12.0-15.0); Mean Corp Hgb Conc 29.9 g/dL (32-36); Mean Corpuscular Volume 96.7 fL (81-99); Mean Platelet Vol. 13.8 fl (6.2-12.0); POSITIVE COUNT YES; Platelet Count 143 K/mm3 (150-450); RBC Distribution Width CV 14.1 % (11.6-14.6); RBC Distribution Width SD 50.4 fl (35.1-43.9); Red Blood Count 3.97 M/mm3 (4.2-5.4); White Blood Count 18.9 K/mm3 (4.4-11.0)
[2024-01-23 08:06] VITALS: BP 112/57; PULSE 54; RESP 16; TEMP 36.4; O2SAT 97
--- NOTE | 2024-01-23 08:45 | CASEMGMT ---
RN?CM?ACCOUNTS RECEIVABLE SPECIALIST?CM?to room to meet with patient for initial transition planning/care coordination?assessment.?RN?CM?introduced self and role at [facility].? Pt voices understanding and consents to?assessment?at this time.? Pt resting in bed in no distress at this time.? Pt is A/O at this time and answers all questions appropriately.?? Care providers, pharmacy, and demographics verified/updated at this time. PCP: Dr John Adams Specialists: Dr Arteaga-MANAGER RISK MANAGEMENT, Dr Lanza-urology Preferred Pharmacy: [facility] Rx @ dc, otherwise, uses [facility] [place] Insurance: [facility], AARP Prescription Benefit:?yes Living Will/HPOA:?Has both LW and HCPOA and states her sons, Rochelle and Vinicio are HCPOA. LNOK: 2 sons, Rochelle and Vinicio Living Arrangements: Lives w/son, Rochelle, in 2-story home w/4 steps to enter. FFSU. Independent. 16-yr-old GS stays w/her 2 days/week. Transportation:?Pt states drives self and states no transportation concerns at this time.? Rochelle also drives and will take her home @ discharge. DME: ? Denies using any DME and denies needs.? HHC/SNF: No hx of either. No needs identified. Pt wishes to return home and states has no concerns with going home at time of discharge.? Advised pt to ask for?CM?if any questions/concerns/needs arise.? Voices understanding. PLAN:??Home [employer] BSN?RN?CM
[2024-01-23] MEDS: Cephalexin 500 MG Capsule PO (10:01)
[2024-01-23] MEDS: Enoxaparin 40 MG/0.4 ML Syringe SC (10:01)
[2024-01-23] MEDS: Docusate Sodium 100 MG Capsule PO (10:01)
[2024-01-23] MEDS: Ensure Plus High Protein 120 ML LIQUID PO (10:01)
[2024-01-23] MEDS: 0.9% Saline Lock 10 ML Syringe IV (10:02)
[2024-01-23] MEDS: Gabapentin 400 MG Capsule PO (10:05)
--- NOTE | 2024-01-23 10:21 | PCM.PN.OB ---
Subjective Subjective Patient doing well without complaints. Tolerating PO. Ambulating without difficulty. Urinary catheter removed by Dr Lanza this morning. Denies chest pain, shortness of breath, calf pain/swelling, fevers, chills, lightheadedness. Minimal vaginal bleeding/discharge this morning. Objective Data Objective Data Vital Signs: Vital Signs Temp Pulse Resp BP Pulse Ox O2 Del Method O2 Flow Rate 97.5 F L 54 L 16 112/57 L 97 Room Air 2 01/23/24 08:06 01/23/24 08:06 01/23/24 08:06 01/23/24 08:06 01/23/24 08:06 01/23/24 08:06 01/22/24 16:14 FiO2 29 01/22/24 11:55 Oxygen Flow Rate (L/min) 2 Oxygen Delivery Method Room Air Weight: 216 lb 0.848 oz Body Mass Index (BMI) 34.8 Intake & Output: Intake and Output for Last 24 Hours 01/21/24 01/22/24 01/23/24 23:59 23:59 23:59 Intake Total 566 / 566 1400 / 1400 Output Total 775 / 775 750 / 750 Balance -209 / -209 650 / 650 Lab / Micro Data 01/23/24 05:40 01/22/24 06:25 Labs: Laboratory Results - last 24 hr 01/23/24 05:40: WBC 18.9 H, RBC 3.97 L, Hgb 11.5 L, Hct 38.4, MCV 96.7, MCH 29.0, MCHC 29.9 L, RDW Std Deviation 50.4 H, RDW Coeff of Kaiser 14.1, Plt Count 143 L, MPV 13.8 H ROS Constitutional Constitutional: Reports systems reviewed and no addt'l complaints, except as documented; Denies anorexia or headache(s) Cardiovascular Cardiovascular: Reports systems reviewed and no addt'l complaints, except as documented; Denies dizziness, dyspnea, nausea or tachypnea Respiratory/Chest Respiratory/Chest: Reports systems reviewed and no addt'l complaints, except as documented; Denies cough, dyspnea, shortness of breath at rest or tachypnea Gastrointestinal Gastrointestinal: Reports systems reviewed and no addt'l complaints, except as documented; Denies abdominal pain, constipation or nausea Genitourinary Genitourinary: Reports systems reviewed and no addt'l complaints, except as documented Musculoskeletal Musculoskeletal: Reports systems reviewed and no addt'l complaints, except as documented Integumentary Integumentary: Reports systems reviewed and no addt'l complaints, except as documented Neurologic Neurologic: Reports systems reviewed and no addt'l complaints, except as documented; Denies abnormal speech, dizziness or headache(s) Psychiatric Psychiatric: Reports systems reviewed and no addt'l complaints, except as documented Endocrine Endocrinology: Reports systems reviewed and no addt'l complaints, except as documented Hematologic/Lymphatic Hematologic/Lymphatic: Reports systems reviewed and no addt'l complaints, except as documented Physical Exam Const alert, oriented x3 and no apparent distress General Appearance: cooperative and comfortable Neck full ROM Resp normal respiratory effort, normal air movement and no retractions Effort and Inspection: able to speak in complete sentences and symmetric chest movement GI soft to palpation Extremity normal to inspection and full ROM Skin no rashes or lesions noted Neuro moves all extremities Psych mental status grossly normal, thought process normal and cooperative Assessment & Plan (1) S/P vaginal hysterectomy: COMMENT: TVH only prolapse repair by LISA Lanza PLAN: continue current plan of care plan for discharge today by Dr Lanza follow up in office as previously discussed (2) Complete uterovaginal prolapse: COMMENT: plan TVH combo with Myla (3) Stress incontinence: (4) Essential hypertension: Charges/Coding Multi Select Codes Visit Charges Office Visit/Consults: 87773 OV L3 Est 20min
--- NOTE | 2024-01-23 10:25 | PCM.PN.GU ---
Subjective Subjective Doing well this morning. Was out of bed last night and tolerating PO intake without issues. Packing fell out yesterday when she thought she needed to have bowel movement. Pain is controlled. Minimal vaginal spotting overnight. Objective Data Objective Data Vital Signs: Vital Signs Temp Pulse Resp BP Pulse Ox O2 Del Method O2 Flow Rate 97.5 F L 54 L 16 112/57 L 97 Room Air 2 01/23/24 08:06 01/23/24 08:06 01/23/24 08:06 01/23/24 08:06 01/23/24 08:06 01/23/24 08:06 01/22/24 16:14 FiO2 29 01/22/24 11:55 Oxygen Flow Rate (L/min) 2 Oxygen Delivery Method Room Air Weight: 98 kg Body Mass Index (BMI) 34.8 Intake & Output: Intake and Output for Last 24 Hours 01/21/24 01/22/24 01/23/24 23:59 23:59 23:59 Intake Total 566 / 566 1400 / 1400 Output Total 775 / 775 750 / 750 Balance -209 / -209 650 / 650 Lab / Micro Data 01/23/24 05:40 01/22/24 06:25 Labs: Laboratory Results - last 24 hr 01/23/24 05:40: WBC 18.9 H, RBC 3.97 L, Hgb 11.5 L, Hct 38.4, MCV 96.7, MCH 29.0, MCHC 29.9 L, RDW Std Deviation 50.4 H, RDW Coeff of [employer] 14.1, Plt Count 143 L, MPV 13.8 H Physical Exam Const alert, oriented x3 and no apparent distress General Appearance: cooperative and comfortable HEENT normocephalic and head/scalp atraumatic Eyes General Eye: normal appearance of both eyes Neck supple General: trachea midline Lymph Lymphatic: no lymphedema noted Chest inspection of chest normal Resp normal respiratory effort, normal air movement and no retractions Cardio regular rate GI soft to palpation, non-tender and non-distended Narrative: rosa draining clear yellow urine, catheter removed without issue Extremity normal to inspection Extremity Narrative: SCD's in place Skin no rashes or lesions noted, no wounds, no jaundice, no petechiae and no mottling Neuro oriented x3, CN's II-XII intact bilaterally and moves all extremities Psych mental status grossly normal, thought process normal and cooperative Assessment & Plan Assessment/Plan (1) Incomplete uterovaginal prolapse: PLAN: trial of void today with PVR home later today with or without catheter pending voiding results has cephalexin at home from me already, she knows to continue
[2024-01-23] MEDS: oxyCODONE 5 MG Tablet PO (13:25)
== END 2024-01-23 13:45 | disposition home or self-care (01) | DRG 743 ==
LOC: SDC 11:25 → MS3 11:25
PROVIDERS: Urology; Admitting Provider Obstetrics & Gynecology; PCP Family Medicine; Referring Provider Obstetrics & Gynecology; Visit Provider Obstetrics & Gynecology
PROC: 0UT97ZZ Resection of Uterus, Via Natural or Artificial Opening (ICD-10-PCS; CPT 58260; principal; 2024-01-22 07:10)
PROC: 0JQC0ZZ Repair Pelvic Region Subcutaneous Tissue and Fascia, Open Approach (ICD-10-PCS; CPT 57260; 2024-01-22 07:10)
DX: N81.2 Incomplete uterovaginal prolapse (principal); G89.29 Other chronic pain; M06.9 Rheumatoid arthritis, unspecified; I10 Essential (primary) hypertension; M54.9 Dorsalgia, unspecified; N39.46 Mixed incontinence; N95.2 Postmenopausal atrophic vaginitis; N32.81 Overactive bladder; Z79.82 Long term (current) use of aspirin; Z79.899 Other long term (current) drug therapy
CPT/HCPCS: 80053; 82962; 83735; 85027; 86850; 86900; 86901; 88307; 93005; 94668; 97802; 99252; J7120; A4216; C1758; G0463; J2405; J3475